=== PATIENT | female | born 1985 | race Caucasian/White ===

== ENCOUNTER 2022-02-27 19:12 | Day surgery (SDC) | payer BC, SELFPAY ==
[2022-02-27] VITALS (9 sets, daily range): BP systolic 97–112; BP diastolic 54–80; PULSE 70–78; RESP 16; TEMP 36.1–36.6; O2SAT 99; BMI 22.1
--- NOTE | 2022-02-27 19:58 | CRLHL7_ITS ---
For Patients: As a result of the Century Cures Act, medical imaging exams and procedure reports are released immediately into your electronic medical record. You may view this report before your referring provider. If you have questions, please contact your health care provider. INDICATION: Abdominal pain. COMPARISON: 24 April 2021. TECHNIQUE: 62 mL Isovue-370 IV contrast. FINDINGS: Breast implants. Very small amount of ascites around the spleen greater than liver. Complex fluid and hemorrhage in the dependent retrouterine pelvis. Hemorrhage surrounds a presumed right ovarian follicle. Small left ovarian follicle without adjacent hemorrhage. Appendectomy clips above the right adnexum. Nonobstructing calculi in the right kidney. There is slightly delayed left nephrogram compared to the right although no hydronephrosis. IMPRESSION: Abnormal pelvis with appearance of hemorrhage in the retrouterine space and right adnexum. Query hemorrhagic rupture of a cyst or rupture of a torsed ovary. Query pyosalpinx. Ectopic is a possibility if there is positive test. Correlate with clinical and laboratory findings. Ultrasound should be considered for better characterize. Surgical gynecology referral recommended. Results discussed with Dr. Anderson at 2200 02/27/2022. Please note that all CT scans at this facility use dose modulation, iterative reconstruction, and/or weight-based dosing when appropriate to reduce radiation dose to as low as reasonably achievable. Dictated by Hector Nolan MD @ 02/27/2022 9:59:24 PM (Electronically Signed)
[2022-02-27 20:12] LABS: Lactate* 1.4 mmol/L (0.5-1.9)
[2022-02-27 20:14] LABS: Basophils Absolute Auto 0.02 K/uL (0.00-0.30); Basophils Percent Auto 0.2 % (0.0-3.0); Eosinophils Absolute Auto 0.42 K/uL (0.00-0.50); Eosinophils Percent Auto 4.5 % (0.0-7.0); Hematocrit 32.7 % (33.0-51.0); Hemoglobin* 10.9 gm/dL (12.0-16.0); Immature Granulocytes Abs Auto 0.02 K/uL (0.00-0.30); Lymphocytes Absolute Auto 2.76 K/uL (0.90-2.90); Lymphocytes Percent Auto 29.6 % (20-44); Mean Corpuscular HGB Conc 33 gm/dL (32-36); Mean Corpuscular Hemoglobin 30 pg (26-34); Mean Corpuscular Volume 89 fL (80-100); Monocytes Percent Auto 7.6 % (0.0-11.0); Neutrophils Absolute Auto 5.39 K/uL (1.7-7.0); Neutrophils Percent Auto 57.9 % (42.0-72.0); Platelet Count* 243 K/uL (140-440); RDW Coefficient of Variation % 12.7 % (11.5-15.5); Red Blood Count 3.69 m/uL (4.00-5.20); White Blood Count* 9.32 K/uL (4.50-11.00)
--- NOTE | 2022-02-27 20:14 | ED_ITS ---
HPI - Abdominal Pain General Chief Complaint: Abdominal Pain Stated Complaint: abdominal pain,dizzy Time Seen by Provider: 02/27/22 19:55 History of Present Illness HPI narrative: Pt is a 36 year old woman who began having abd pain this morning. She states the pain is severe and radiates through to her back. No nausea or vomiting. No fever or chills. No dysuria. She states that she had a normal mensus approximately 1 week ago. She states that she has not been taking any medications but did drink a beer tonight to try to help with the pain. She is unable to identify any worsening factors but has not been able to eat much today. She has had no similar symptoms previously. Related Data Home Medications Medication Instructions Recorded Confirmed No Known Home Medications 02/27/22 02/27/22 Allergies Allergy/AdvReac Type Severity Reaction Status Date / Time No Known Drug Allergies Allergy Verified 02/27/22 19:25 Review of Systems Status of ROS Reports: 10 or more systems reviewed and unremarkable except as noted in History and below [facility] Medical History (Updated 02/27/22 @ 22:46 by Remberto Anderson MD) ADD (attention deficit disorder) Depression ALANNA (generalized anxiety disorder) GERD (gastroesophageal reflux disease) Migraine Panic disorder with agoraphobia Primary insomnia PTSD (post-traumatic stress disorder) Surgical History H/O bilateral breast implants H/O wisdom tooth extraction History of appendectomy Social History Smoking Status: Current every day smoker What tobacco products do you use: cigarettes Do you use any of these nicotine containing products: E-Cigarettes Second hand tobacco smoke exposure: Yes How often do you have a drink containing alcohol: never How often do you have six or more drinks on one occasion: Never AUDIT-C Alcohol total score: 0 Non-prescribed substance use: denies use Exam Narrative: Exam Narrative: EXAM GENERAL: Patient appears uncomfortable EYES: No scleral icterus. THYROID: no thyroid nodules or thyromegaly. LYMPH: No supraclavicular or cervical lymphadenopathy. SKIN: Visible skin seen during exam normal or with benign process only. EXT: No dependent lower extremity pedal edema. HEART: Regular rate and rhythm with no murmurs, rubs, or gallops. LUNGS: Clear to auscultation bilaterally with no crackles or wheezes. ABD: Hypoactive but present bowel sounds. Abd slightly distended PSYCH: Good eye contact, speech is not pressured. Const: Vital Signs, click to edit/add: Vital Signs - 24 hr 02/27/22 19:21 02/27/22 20:22 02/27/22 20:20 Temperature 97.8 F 97.8 F Pulse Rate [Right Pulse Oximeter] 76 Respiratory Rate 16 Blood Pressure [Ri ght Upper Arm] 108/76 Pulse Oximetry 99 99 Oxygen Delivery Me thod Room Air 02/27/22 20:50 02/27/22 21:39 Temperature 97.8 F 97.0 F L Pulse Rate [Right Pulse Oximeter] 78 Respiratory Rate 16 Blood Pressure [Ri ght Upper Arm] 112/78 Pulse Oximetry 99 Oxygen Delivery Me thod Room Air Course Course Hospital Course: IV placed. CT of abd and pelvis ordered. CBC, CMP, Amylase, Lipase, UA, Urine , ETOH, D dimer collected Previous records reviewed. 1 Liter NS 30 mg Toradol given Reevaluation(s) Reevaluation #1: Feeling better after 1 liter NS, 30 of Toradol and 0.5 of Dilaudid. Labs reviewed normal except Calcium of 8.1, D dimer of 0.61 and Hgb of 10. UA shows c ontamination. CT of Abd and pelvis shows hemoperitoneum retrouterine query pyosalpinx. Consult with [employer] recommended Time: 22:41 Consultations Consultation #1: Case reviewed with pediatric surgeon [employer]. Who shares my concern. Coming in to see pt. Time: 22:43 Vital Signs Vital signs: Initial Vital Signs Temperature 97.8 F 02/27/22 19:21 Temperature Source Temporal Artery Scan 02/27/22 19:21 Pulse Rate 76 02/27/22 19:21 Respiratory Rate 16 02/27/22 19:21 Blood Pressure 108/76 02/27/22 19:21 Blood Pressure Mean 86 02/27/22 19:21 Blood Pressure Position Sitting 02/27/22 19:21 Pulse Oximetry 99 02/27/22 19:21 Oxygen Delivery Method 02/27/22 19:21 Vital Signs Temperature 97.8 F 02/27/22 19:21 Pulse Rate 76 02/27/22 19:21 Respiratory Rate 16 02/27/22 19:21 Blood Pressure 108/76 02/27/22 19:21 Pulse Oximetry 99 02/27/22 19:21 Oxygen Delivery Method 02/27/22 19:21 Temperature 97.0 F L 02/27/22 21:39 Pulse Rate 78 02/27/22 21:39 Respiratory Rate 16 02/27/22 21:39 Blood Pressure 112/78 02/27/22 21:39 Pulse Oximetry 99 02/27/22 21:39 Oxygen Delivery Method 02/27/22 21:39 MDM - Abdominal Pain MDM Narrative Medical decision making narrative: Pt is a 36 year old who presents with abd pain of 12 hours duration. Workup shows anemia and hemoperitoneum. [employer] called and will come in to admit pt vs taking to the OR. Medical Records Medical records narrative: Previous records reviewed. Differential includes. Ovarian cyst rupture. Torsed ovary, Acute blood loss anemia, other bleeding from viscera, Lab Data Labs: Lab Results 02/27/22 02/27/22 02/27/22 Range/Units 19:58 20:05 20:05 WBC 9.32 (4.50-11.00) K/uL RBC 3.69 L (4.00-5.20) m/uL Hgb 10.9 L (12.0-16.0) gm/dL Hct 32.7 L (33.0-51.0) % MCV 89 (80-100) fL MCH 30 (26-34) pg MCHC 33 (32-36) gm/dL RDW Coeff of [place] 12.7 (11.5-15.5) % Plt Count 243 (140-440) K/uL Neut % (Auto) 57.9 (42.0-72.0) % Lymph % (Auto) 29.6 (20-44) % [place] % (Auto) 7.6 (0.0-11.0) % Eos % (Auto) 4.5 (0.0-7.0) % Baso % (Auto) 0.2 (0.0-3.0) % Neut # (Auto) 5.39 (1.7-7.0) K/uL Lymph # (Auto) 2.76 (0.90-2.90) K/uL [place] # (Auto) 0.70 (0.00-0.90) K/UL Eos # (Auto) 0.42 (0.00-0.50) K/uL Baso # (Auto) 0.02 (0.00-0.30) K/uL Abs Immat Gran (auto) 0.02 (0.00-0.30) K/uL D-Dimer Quant (PE/DVT) (0.00-0.50) ug/ml Sodium 135 (135-149) mmol/L Potassium 4.0 (3.6-5.1) mmol/L Chloride 105 (96-114) mmol/L Carbon Dioxide 24 (20-32) mmol/L BUN 14 (5-24) mg/dL Creatinine 0.6 (0.5-1.5) mg/dL Estimated Creat Clear 109.29 Estimated GFR 121 ml/min Glucose 91 (60-115) mg/dL Lactate (0.5-1.9) mmol/L Calcium 8.1 L (8.4-10.6) mg/dL Total Bilirubin 0.3 (0.1-1.5) mg/dL AST 24 (12-35) U/L ALT 17 (4-35) U/L Alkaline Phosphatase 42 (40-150) U/L Total Protein 6.7 (6.0-8.3) g/dL Albumin 4.0 (3.3-5.0) g/dL Amylase 94 H (18-89) U/L Lipase 144 (23-300) U/L HCG, Qual Negative (Negative) Urine Color Yellow (Yellow) Urine Appearance Slightly Cloudy A (Clear) Urine pH 5.5 (5.0-8.5) Ur Specific [place] 1.020 (1.000-1.030) Urine Protein Negative (Negative) Urine Glucose (UA) Negative (Negative) Urine Ketones Trace A (Negative) Urine Blood Negative (Negative) Urine Nitrite Negative (Negative) Urine Bilirubin Negative (Negative) Urine Urobilinogen 0.2 (0.2-1.0) Ur Leukocyte Esterase Trace A (Negative) Urine RBC 2-5 A (0-2) Urine WBC 0-2 (0-5) Ur Squamous Epith Cells None (None-Few) Urine Bacteria Few A (None) Urine Mucus Few A (None) Ethyl Alcohol (0.01-0.03) % 02/27/22 02/27/22 02/27/22 Range/Units 20:05 20:05 20:33 WBC (4.50-11.00) K/uL RBC (4.00-5.20) m/uL Hgb (12.0-16.0) gm/dL Hct (33.0-51.0) % MCV (80-100) fL MCH (26-34) pg MCHC (32-36) gm/dL RDW Coeff of [place] (11.5-15.5) % Plt Count (140-440) K/uL Neut % (Auto) (42.0-72.0) % Lymph % (Auto) (20-44) % [place] % (Auto) (0.0-11.0) % Eos % (Auto) (0.0-7.0) % Baso % (Auto) (0.0-3.0) % Neut # (Auto) (1.7-7.0) K/uL Lymph # (Auto) (0.90-2.90) K/uL [place] # (Auto) (0.00-0.90) K/UL Eos # (Auto) (0.00-0.50) K/uL Baso # (Auto) (0.00-0.30) K/uL Abs Immat Gran (auto) (0.00-0.30) K/uL D-Dimer Quant (PE/DVT) 0.61 H (0.00-0.50) ug/ml Sodium (135-149) mmol/L Potassium (3.6-5.1) mmol/L Chloride (96-114) mmol/L Carbon Dioxide (20-32) mmol/L BUN (5-24) mg/dL Creatinine (0.5-1.5) mg/dL Estimated Creat Clear Estimated GFR ml/min Glucose (60-115) mg/dL Lactate 1.4 (0.5-1.9) mmol/L Calcium (8.4-10.6) mg/dL Total Bilirubin (0.1-1.5) mg/dL AST (12-35) U/L ALT (4-35) U/L Alkaline Phosphatase (40-150) U/L Total Protein (6.0-8.3) g/dL Albumin (3.3-5.0) g/dL Amylase (18-89) U/L Lipase (23-300) U/L HCG, Qual (Negative) Urine Color (Yellow) Urine Appearance (Clear) Urine pH (5.0-8.5) Ur Specific [place] (1.000-1.030) Urine Protein (Negative) Urine Glucose (UA) (Negative) Urine Ketones (Negative) Urine Blood (Negative) Urine Nitrite (Negative) Urine Bilirubin (Negative) Urine Urobilinogen (0.2-1.0) Ur Leukocyte Esterase (Negative) Urine RBC (0-2) Urine WBC (0-5) Ur Squamous Epith Cells (None-Few) Urine Bacteria (None) Urine Mucus (None) Ethyl Alcohol < 0.01 L (0.01-0.03) % Discharge Plan Discharge Clinical Impression: Hemoperitoneum Patient Disposition: Admitted As Inpatient Condition: Stable Activity Level: Up with assist Discharge Diet: Other Prescriptions: No Action No Known Home Medications Follow Up/Referrals: Remberto Anderson MD [Primary Care Provider] -
[2022-02-27 20:15] LABS: Appearance Urine Slightly Cloudy (Clear); Bilirubin Urine Negative (Negative); Blood Urine Negative (Negative); Color Urine Yellow (Yellow); Glucose Urine Negative (Negative); Ketones Urine Trace (Negative); Leukocyte Esterase Urine Trace (Negative); Nitrite Urine Negative (Negative); Protein Urine Negative (Negative); Urobilinogen Urine 0.2 (0.2-1.0); pH Urine 5.5 (5.0-8.5)
[2022-02-27 20:16] LABS: Slide Review Reflex No
[2022-02-27] MEDS: KETOROLAC 30 MG/ML inj IVP (20:20)
[2022-02-27] MEDS: 0.9 % SODIUM CHLORIDE 1000 ml 1,000 ML IV (20:20)
[2022-02-27 20:33] LABS: Chloride* 105 mmol/L (96-114); Sodium* 135 mmol/L (135-149)
[2022-02-27 20:35] LABS: Amylase* 94 U/L (18-89); Aspartate Amino Transferase* 24 U/L (12-35); Bilirubin Total* 0.3 mg/dL (0.1-1.5); Blood Urea Nitrogen* 14 mg/dL (5-24); Carbon Dioxide* 24 mmol/L (20-32); Creatinine* 0.6 mg/dL (0.5-1.5); Est. Creatinine Clearance* 109.29; Estimated Glomerular Filt Rate 121 ml/min; Total Protein* 6.7 g/dL (6.0-8.3)
[2022-02-27 20:36] LABS: Alanine Aminotransferase* 17 U/L (4-35); Alkaline Phosphatase* 42 U/L (40-150); Calcium* 8.1 mg/dL (8.4-10.6); Glucose* 91 mg/dL (60-115); Lipase* 144 U/L (23-300)
[2022-02-27 20:42] LABS: Ethanol* < 0.01 % (0.01-0.03)
[2022-02-27 20:47] LABS: Bacteria Urine Few; WBC Urine 0-2 (0-5)
[2022-02-27 20:48] LABS: Mucus Urine Few
[2022-02-27] MEDS: HYDROmorphone 0.5 mg/0.5 ml inj IVP ×2 (20:50→23:12)
[2022-02-27 20:57] LABS: HCG Qualitative* Negative (Negative)
[2022-02-27 21:00] LABS: D Dimer Quantitative* 0.61 ug/ml (0.00-0.50)
[2022-02-27 23:32] LABS: SARS PCR* Negative SARS-CoV-2 (Negative)
--- NOTE | 2022-02-27 23:58 | P.GYNHP_ITS ---
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 This morning, she noted periumbilical 9/10 abdominal/pelvic pain, without radiation. No vaginal bleeding since menses ceased 10d ago; no other abnormal vaginal discharge, irritation, odor, itching. Pain not relieved by bowel movement, which itself was painful; she denies N/V today. She last ate at 1530, last fluids 1630. Voiding completely, but also painful. She experienced no adverse anesthesia reaction after laparoscopic appendectomy 2018; no family history coagulation disorders or malignant hyperthermia. Review of Systems Status of ROS: Reports: 6 or more systems reviewed and unremarkable except as noted in History and below Resp: Reports: pain on inspiration GI: Reports: abdominal pain and change in bowel habits (constipation today) : Reports: painful urination PFSH PFSH Medical History ADD (attention deficit disorder) Depression ALANNA (generalized anxiety disorder) GERD (gastroesophageal reflux disease) Migraine Panic disorder with agoraphobia Primary insomnia PTSD (post-traumatic stress disorder) Surgical History H/O bilateral breast implants H/O wisdom tooth extraction History of appendectomy Social History Smoking Status: Current every day smoker What tobacco products do you use: cigarettes Do you use any of these nicotine containing products: E-Cigarettes Second hand tobacco smoke exposure: Yes How often do you have a drink containing alcohol: never How often do you have six or more drinks on one occasion: Never AUDIT-C Alcohol total score: 0 Non-prescribed substance use: denies use Meds Home Medications and Allergies Home Medications Medication Instructions Recorded Confirmed Type No Known Home Medications 02/27/22 02/27/22 History Allergies Allergy/AdvReac Type Severity Reaction Status Date / Time No Known Drug Allergies Allergy Verified 02/27/22 19:25 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 Physical Exam: Vital signs: Temp Pulse Resp BP Pulse Ox O2 Del Method 97.0 F L 78 16 112/78 99 02/27/22 21:39 02/27/22 21:39 02/27/22 21:39 02/27/22 21:39 02/27/22 21:39 02/27/22 21:39 Constitutional: Constitutional: mild distress and cooperative Routine HEENT Exam: Head: Present normal inspection Routine Neck Exam: NECK: Present full ROM Routine Cardiovascular Exam: Cardiovascular: Present RRR Routine Abdominal Exam: Abdominal: Present firm, guarding, rebound and te nderness Routine Extremities Exam: Extremities: Present full ROM and normal inspection Routine Neurological Exam: Neurological: Present alert and CN II-XII intact Routine Psychiatric Exam: Psychiatric: Present normal affect, normal thought process and cooperative 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 - Results Labs Labs: Short CBC 02/27/22 Range/Units 20:05 WBC 9.32 (4.50-11.00) K/uL Hgb 10.9 L (12.0-16.0) gm/dL Hct 32.7 L (33.0-51.0) % Plt Count 243 (140-440) K/uL BMP 02/27/22 20:05 Sodium 135 Potassium 4.0 Chloride 105 Carbon Dioxide 24 BUN 14 Creatinine 0.6 Glucose 91 Calcium 8.1 L Liver Function 02/27/22 Range/Units 20:05 Total Bilirubin 0.3 (0.1-1.5) mg/dL AST 24 (12-35) U/L ALT 17 (4-35) U/L Alkaline Phosphatase 42 (40-150) U/L Albumin 4.0 (3.3-5.0) g/dL Urine 02/27/22 Range/Units 19:58 Urine Color Yellow (Yellow) Urine Appearance Slightly Cloudy A (Clear) Urine pH 5.5 (5.0-8.5) Ur Specific [place] 1.020 (1.000-1.030) Urine Protein Negative (Negative) Urine Glucose (UA) Negative (Negative) Imaging CT scan - pelvis: Attestation: I have reviewed the pertinent imaging results. Radiologist's impression: hemoperitoneum, more likely from right adnexal source. possible ovarian torsion. Assessment and Plan Assessment and plan (1) Hemoperitoneum: Status: Acute (2) Pelvic pain with negative beta-human chorionic gonadotropin (BhCG) in female: Status: Acute Plan Regular menses, last 2w ago; ovulation likely occurred past day, with hemorrhage at cyst site. Pain likely result of hemoperitoneum. Negative hcg, so ectopic not present. Normal LFT, amylase, lipase rule out hepatic or pancreatic source. Appendix surgically absent. Discussed risks and benefits of alternatives for managing this pelvic blood and subsequent pain. These include watchful waiting, medical control of pain, serial labs, further imaging with ultrasound, as well as definitive treatment with diagnostic laparoscopy, evacuation of hemoperitoneum, establishment of hemostasis, and possible unilateral oophorectomy. All her questions answered to her satisfaction; she gave signed informed consent to proceed to the OR for outpatient procedure now. OR team called.
[2022-02-28] VITALS (20 sets, daily range): BP systolic 92–108; BP diastolic 51–74; PULSE 76–88; RESP 12–18; TEMP 36.2–37.3; O2SAT 81–100
--- NOTE | 2022-02-28 00:25 | P.PCN_ITS ---
Procedure Note Date Seen: 02/28/22 Will [facility] bill your pro fee for this procedure?: Yes Pre-op diagnosis: pelvic pain with negative test, hemoperitoneum Procedure: Diagnostic laparoscopy. Evacuation of hemoperitoneum. Right salpingo- oophorectomy. Procedure Description: Discussion of risks and benefits of diagnostic laparoscopy and evacuation of hemoperitoneum, with possible unilateral oophorectomy if hemorrhage or torsion found. All patient questions answered to her satisfaction; she gave signed informed consent to proceed to OR for outpatient laparoscopy. She moved to supine position on OR table, and GETA placed. She was prepped and draped in usual fashion. A [employer] uterine manipulator was placed after visualization of cervix with bivalve speculum. Gloves changed. Bupivicaine 0.5% infiltrated in anticipated infraumbilical port site, as well as adjacent sites for towel clips used to elevate abdominal wall. 5mm incision made, and trocar placed into peritoneal cavity; correct placement confirmed with laparoscope. CO2 used for pneumoperitoneum. Bilateral lower quadrant 5mm ports placed in usual fashion under direct visualization. Normal appearing uterus, left ovary, bilateral uterine tubes, gall bladder, inferior liver edge, omentum, and bowel seen. Liquid--and some clotted--hemoperitoneum evacuated with suction global compensation manager. Right ovarian rupture confirmed. Ligasure device used to seal and divide right tube and ovary from attachments. LLQ port removed; site enlarged with scalpel to 11mm, and larger port placed under direct visualization. Laparoscopic specimen bag placed into pelvis. Right adnexa and remaining clot placed in bag, which was then broght partially through LLQ incision. Pelvis reinspected with laparoscope, irriagated and suctioned. Pictures taken. Pneum operitoneum released after RLQ port removed under direct vision. Clamp, ring forceps, and suction used to extract enough specimen from bag until it could be fully removed from peritoneal cavity. All tissue sent for routine Pathology evaluation. LLQ incision fascia closed with 0 Vicryl. Skin of all three incisons closed with running subcuticular 4-0 Monocryl and covered with skin glue. All instrument, sharp, and sponge counts correct at conclusion of case. Patient tolerated procedure very well, and went to PACU in stable condition. Anesthesia: GETA Surgeon: Freedom Anaya MD Estimated blood loss (mL): 7 IV fluids (mL): 800 Pathology: specimen obtained, sent to pathology Condition: stable Disposition: PACU
[2022-02-28] MEDS: BUPIVACAINE 0.5 %/EPI 1:200K 30 ML INJECTION (02:25)
--- NOTE | 2022-02-28 05:47 | PC.NURSE ---
patient tolerating diet, pain controlled, ice to abd. 3 glued lap sites c/d/i. patient has been up to BR to void, no c/o nausea. see VS charting; BPs 90s/60s patient has no symptoms of hypotension. patient expresses desire to go home.
--- NOTE | 2022-02-28 07:34 | W.ANESCHARGE ---
Anesthesia Charges Start Date/Time Anesthesia Start Date: 02/28/22 Anesthesia Start Time: 00:38 Stop Date/Time Anesthesia Stop Date: 02/28/22 Anesthesia Stop Time: 02:53 Summary Emergency: Yes
[2022-02-28] MEDS: KETOROLAC 10 MG TABLET PO (08:18)
[2022-02-28] MEDS: ACETAMINOPHEN 500 MG TABLET 1000 MG PO (08:18)
--- NOTE | 2022-02-28 09:01 | P.DS_ITS ---
DS: Providers Provider Date Seen: 02/28/22 Primary care physician: Remberto Anderson MD Attending Physician on discharge: Freedom Anaya MD Date of Discharge: 02/28/22 DS: Diagnosis Discharge Diagnosis (1) Hemoperitoneum: Status: Acute Problem details: source was right ovarian hemorrhage, likely from ovulation cyst. Right salpingo-oophorectomy completed. (2) Pelvic pain with negative beta-human chorionic gonadotropin (BhCG) in female: Status: Acute Problem details: Pain resolved with evacuation of hemoperitoneum. DS: Medications Discharge Medications Other Medication Instructions: Because of downtime, paper scripts given for ketorolac 10mg PO Q6H; for gretchen taminophen 500mg tabs, 2 tabs PO QID PRN refractory pain >1H after taking NSAID. 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 Indication for surgery: Pelvic pain with negative hCG. Intraoperative findings were notable for approximately 300mL clotted pelvic blood, and rupture right ovary. She had an uncomplicated surgery. Postoperative course has been uneventful. Vitals have been stable. She has remained afebrile. Today, on postoperative day 0, she reports the pain is well controlled. She has been able to ambulate Without difficulty. She is tolerating regular diet. She is passing flatus. She is voiding without difficulty. Hospital Course: IV placed. CT of abd and pelvis ordered. CBC, CMP, Amylase, Lipase, UA, Urine , ETOH, D dimer collected Previous records reviewed. 1 Liter NS 30 mg Toradol given Time Spent with Patient Time attestation: Total time spent providing and/or coordinating discharge services: CERTIFIED PHYSICAL THERAPIST ASSISTANT - Exam Physical Exam: Vital signs: Temp Pulse Resp BP Pulse Ox O2 Del Method 99.2 F 82 18 96/51 L 99 02/28/22 07:30 02/28/22 07:30 02/28/22 07:30 02/28/22 07:30 02/28/22 07:30 02/28/22 07:30 CERTIFIED PHYSICAL THERAPIST ASSISTANT - DS: Data Data Completed and Pending Labs on day of discharge: Labs from last 24 hours 02/27/22 02/27/22 02/27/22 22:15 20:33 20:05 WBC RBC Hgb Hct MCV MCH MCHC RDW Coeff of [place] Plt Count Neut % (Auto) Lymph % (Auto) [place] % (Auto) Eos % (Auto) Baso % (Auto) Neut # (Auto) Lymph # (Auto) [place] # (Auto) Eos # (Auto) Baso # (Auto) Abs Immat Gran (auto) D-Dimer Quant (PE/DVT) 0.61 H Sodium Potassium Chloride Carbon Dioxide BUN Creatinine Estimated Creat Clear Estimated GFR Glucose Lactate Calcium Total Bilirubin AST ALT Alkaline Phosphatase Total Protein Albumin Amylase Lipase HCG, Qual Urine Color Urine Appearance Urine pH Ur Specific [place] Urine Protein Urine Glucose (UA) Urine Ketones Urine Blood Urine Nitrite Urine Bilirubin Urine Urobilinogen Ur Leukocyte Esterase Urine RBC Urine WBC Ur Squamous Epith Cells Urine Bacteria Urine Mucus Ethyl Alcohol < 0.01 L SARS-CoV-2 (PCR) Negative SARS-CoV-2 02/27/22 02/27/22 02/27/22 20:05 20:05 20:05 WBC 9.32 RBC 3.69 L Hgb 10.9 L Hct 32.7 L MCV 89 MCH 30 MCHC 33 RDW Coeff of [place] 12.7 Plt Count 243 Neut % (Auto) 57.9 Lymph % (Auto) 29.6 [place] % (Auto) 7.6 Eos % (Auto) 4.5 Baso % (Auto) 0.2 Neut # (Auto) 5.39 Lymph # (Auto) 2.76 [place] # (Auto) 0.70 Eos # (Auto) 0.42 Baso # (Auto) 0.02 Abs Immat Gran (auto) 0.02 D-Dimer Quant (PE/DVT) Sodium 135 Potassium 4.0 Chloride 105 Carbon Dioxide 24 BUN 14 Creatinine 0.6 Estimated Creat Clear 109.29 Estimated GFR 121 Glucose 91 Lactate 1.4 Calcium 8.1 L Total Bilirubin 0.3 AST 24 ALT 17 Alkaline Phosphatase 42 Total Protein 6.7 Albumin 4.0 Amylase 94 H Lipase 144 HCG, Qual Urine Color Urine Appearance Urine pH Ur Specific [place] Urine Protein Urine Glucose (UA) Urine Ketones Urine Blood Urine Nitrite Urine Bilirubin Urine Urobilinogen Ur Leukocyte Esterase Urine RBC Urine WBC Ur Squamous Epith Cells Urine Bacteria Urine Mucus Ethyl Alcohol SARS-CoV-2 (PCR) 02/27/22 19:58 WBC RBC Hgb Hct MCV MCH MCHC RDW Coeff of [place] Plt Count Neut % (Auto) Lymph % (Auto) [place] % (Auto) Eos % (Auto) Baso % (Auto) Neut # (Auto) Lymph # (Auto) [place] # (Auto) Eos # (Auto) Baso # (Auto) Abs Immat Gran (auto) D-Dimer Quant (PE/DVT) Sodium Potassium Chloride Carbon Dioxide BUN Creatinine Estimated Creat Clear Estimated GFR Glucose Lactate Calcium Total Bilirubin AST ALT Alkaline Phosphatase Total Protein Albumin Amylase Lipase HCG, Qual Negative Urine Color Yellow Urine Appearance Slightly Cloudy A Urine pH 5.5 Ur Specific [place] 1.020 Urine Protein Negative Urine Glucose (UA) Negative Urine Ketones Trace A Urine Blood Negative Urine Nitrite Negative Urine Bilirubin Negative Urine Urobilinogen 0.2 Ur Leukocyte Esterase Trace A Urine RBC 2-5 A Urine WBC 0-2 Ur Squamous Epith Cells None Urine Bacteria Few A Urine Mucus Few A Ethyl Alcohol SARS-CoV-2 (PCR) Procedures Procedures: Procedures Operation Date: 02/28/22 00:45 Procedure: diagnostic laparoscopy, evacuation of hemoperitoneum, right salpingo-oophorectomy. Complications: none Discharge Plan Discharge Disposition: Home, Self-Care Discharging Surgeon: Freedom Anaya Follow-Up Appointment: prn, and [facility]w [facility] Prescriptions: New acetaminophen 500 mg Tablet 1,000 mg PO Q6H Qty: 100 0RF ketorolac 10 mg Tablet 10 mg PO Q6H Qty: 14 0RF Activity Level: Activity as Tolerated Discharge Diet: Regular and Other Patient Instructions: Surgical Site Infections (DC) Forms: Work/Release Restrictions Follow-up: Remberto Anderson MD [Primary Care Provider] - Discharge Orders: Discharge Order (Routine); Ordered 02/28/22 Ordered By: Freedom Anaya
--- NOTE | 2022-02-28 10:00 | PC.NURSE ---
End of Shift: Patient pleasant and cooperative. Patient vitally stable, lungs clear, BS WNL, IV removed, catheter intact. Patient rated pain 8/10, tylenol and toradol given once, pain decreased to 4/10. Patient independent in room. Patient tolerating regular diet and urinating. Lap sites x3 C/D/I. Patient signed belongings sheet and discharge form. Patient had no further questions regarding discharge education. Patient left the floor by foot at 0952.
--- NOTE | 2022-02-28 11:57 | PC.NURSE ---
GUZMAN CATH USED TO EMPTY BLADDER AT END OF CASE. NOT INDWELLING. APX 30CC URINE RETURN
--- NOTE | 2022-02-28 11:59 | SUR.OPER ---
GUZMAN USED FOR EMPTYING BLADDER AT END OF CASE. NOT INDWELLING. 30CC URINE RETURN
--- NOTE | 2022-03-02 13:41 | SUR.PHASEI ---
FENTANYL 50MCG IVP GIVEN AT 0309 PER ALISHA LAFLEUR RN FOR PAIN RATING 12/27
--- NOTE | 2022-03-12 09:06 | SUR.PHASEI ---
Fentanyl 50mcg IV given by Maureen DICKENS on 02/28/22 @ 0309. Charge entered per Marlene in pharmacy.
== END 2022-02-28 09:52 | disposition home or self-care (01) ==
LOC: ED 22:46 → MEDSURG 23:47 → ED 02-28 → MEDSURG 02-28 00:09 → ED 02-28 04:42 → SS 02-28 04:42
PROVIDERS: Emergency Provider Internal Medicine; PCP Internal Medicine; Visit Provider Obstetrics & Gynecology
PROC: (CPT 49320; principal; 2022-02-28 00:30)
DX: K66.1 Hemoperitoneum (principal); R10.2 Pelvic and perineal pain; R42 Dizziness and giddiness
CPT/HCPCS: 58661; 49320; 00840; 36415; 74177; 80053; 81003; 81015; 82077; 82150; 83605; 83690; 84703; 85025; 85379; 87086; 87635; 88305; 94761; 99140; 99284; 99285; A9270; J0330; J1100; J1170; J1200; J1885; J2405; J3010; J3490; J7030; Q9967

== ENCOUNTER 2023-04-08 17:34 | Emergency (ER) | payer SELFPAY ==
[2023-04-08 17:37] VITALS: BP 109/73; PULSE 108; RESP 18; TEMP 37; O2SAT 100; BMI 20.4
[2023-04-08] MEDS: KETOROLAC 30 MG/ML inj IM (18:15)
[2023-04-08 18:26] LABS: Appearance Urine Clear (Clear); Bilirubin Urine Negative (Negative); Blood Urine 1+ (Negative); Color Urine Yellow (Yellow); Glucose Urine Negative (Negative); Ketones Urine Negative (Negative); Leukocyte Esterase Urine Trace (Negative); Nitrite Urine Negative (Negative); Protein Urine 2+ (Negative); Specific Gravity Urine >= 1.030 (1.000-1.030); Urobilinogen Urine 0.2 (0.2-1.0)
--- NOTE | 2023-04-08 18:32 | ED_ITS ---
HPI - Fever General Date Seen: 04/08/23 <Phil Arzola MD - Last Filed: 04/08/23 18:34> Chief Complaint: Fever <Phil Arzola MD - Last Filed: 04/08/23 18:34> Stated Complaint: Body aches, fever, pain in abdomen and neck <Phil Arzola MD - Last Filed: 04/08/23 18:34> Time Seen by Provider: 04/08/23 17:43 <Phil Arzola MD - Last Filed: 04/08/23 18:34> Source: patient <Phil Arzola MD - Last Filed: 04/08/23 18:34> Mode of arrival: ambulatory <Phil Arzola MD - Last Filed: 04/08/23 18:34> Limitations: no limitations <Phil Arzola MD - Last Filed: 04/08/23 18:34> History of Present Illness HPI Narrative: Patient is a very nice 37-year-old female presents here with pain all over her body, this is been for the last 3 days, associated with a fever up to 102 at home. She is also phone nasal discharge and a slight sore throat with this, she feels like she has the flu. She has not received the flu vaccine this year, and only had 1 of her initial COVID series. She describes some lower back discomfort and some lower abdominal discomfort, she does not really have a history of dysuria frequency of urination, but is somewhat worried about a UTI also. She has been taking Tylenol ibuprofen for the last couple days, this is helping her pain somewhat but not completely taking it away. No nausea no vomiting, she denies no change in her bowel habits. She does have a history of a previous ruptured ovarian cyst, and having have a laparoscopy secondary to this. <Phil Arzola MD - Last Filed: 04/08/23 18:34> Related Data Home Medications: Previous Rx's Medication Instructions Recorded acetaminophen 500 mg tablet 1,000 mg (2 x 500 mg) PO Q6H #100 02/28/22 tabs ketorolac 10 mg tablet 10 mg PO Q6H #14 tabs 02/28/22 oxycodone 5 mg tablet 5 mg PO Q8H PRN pain #21 tabs 03/01/22 cyclobenzaprine 10 mg tablet 10 mg PO TID PRN muscle spasm #30 03/05/22 tabs <Phil Arzola MD - Last Filed: 04/08/23 18:34> Allergies/Adverse Reactions: Allergies Allergy/AdvReac Type Severity Reaction Status Date / Time No Known Drug Allergies Allergy Verified 04/08/23 20:54 <Phil Arzola MD - Last Filed: 04/08/23 18:34> Review of Systems Status of ROS Reports: 10 or more systems reviewed and unremarkable except as noted in History and below <Phil Arzola MD - Last Filed: 04/08/23 18:34> PFSH PFSH Medical History: Medical History Neck muscle spasm ?M62.838 - Other muscle spasm (ICD-10) Ovarian hemorrhage ?N83.8 - Other noninflammatory disorders of ovary, fallopian tube and broad ligament (ICD-10) ALANNA (generalized anxiety disorder) ?F41.1 - Generalized anxiety disorder (ICD-10) PTSD (post-traumatic stress disorder) ?F43.10 - Post-traumatic stress disorder, unspecified (ICD-10) Panic disorder with agoraphobia ?F40.01 - Agoraphobia with panic disorder (ICD-10) Primary insomnia ?F51.01 - Primary insomnia (ICD-10) GERD (gastroesophageal reflux disease) ?K21.9 - Gastro-esophageal reflux disease without esophagitis (ICD-10) Migraine ?G43.909 - Migraine, unspecified, not intractable, without status migrainosus (ICD-10) ADD (attention deficit disorder) ?F98.8 - Other specified behavioral and emotional disorders with onset usually occurring in childhood and adolescence (ICD-10) Depression ?F32.A - Depression, unspecified (ICD-10) <Phil Arzola MD - Last Filed: 04/08/23 18:34> Surgical History: Surgical History H/O bilateral breast implants ?Z98.82 - Breast implant status (ICD-10) History of appendectomy ?Z90.49 - Acquired absence of other specified parts of digestive tract (ICD- 10) H/O wisdom tooth extraction ?K08.409 - Partial loss of teeth, unspecified cause, unspecified class (ICD- 10) <Phil Arzola MD - Last Filed: 04/08/23 18:34> Social History: Social History Smoking Status: Current every day smoker What tobacco products do you use: cigarettes Do you use any of these nicotine containing products: None Second hand tobacco smoke exposure: No How often do you have a drink containing alcohol: never How often do you have six or more drinks on one occasion: Never AUDIT-C Alcohol total score: 0 Non-prescribed substance use: denies use service: No <Phil Arzola MD - Last Filed: 04/08/23 18:34> Exam Narrative Exam Narrative: Patient is seen in room 7, she is in no apparent distress, pupils are equal round reactive to light there is TMs are normal oropharynx normal no meningismus she moves her neck through full range of motion is no lymphadenopathy anterior posterior chains, her chest is good air entry bilaterally with no wheezing crackles noted heart sounds are normal. Her abdomen is overall soft, there is no tenderness to palpation bowel sounds are normal, no organomegaly no CVA tenderness. She moves all extremities independen tly and well. <Phil Arzola MD - Last Filed: 04/08/23 18:34> Const Vital Signs, click to edit/add: Vital Signs - 24 hr 04/08/23 17:37 Temperature 98.6 F Pulse Rate [Right Pulse Oximeter] 108 H Respiratory Rate 18 Blood Pressure [Right Upper Arm] 109/73 Pulse Oximetry 100 Oxygen Delivery Method Room Air <Phil Arzola MD - Last Filed: 04/08/23 18:34> Vital Signs - 24 hr 04/08/23 17:37 Temperature 98.6 F Pulse Rate [Right Pulse Oximeter] 108 H Respiratory Rate 18 Blood Pressure [Right Upper Arm] 109/73 Pulse Oximetry 100 Oxygen Delivery Method Room Air <Remberto Anderson MD - Last Filed: 04/08/23 22:09> Documenting provider has reviewed patient's vital signs: yes <Phil Arzola MD - Last Filed: 04/08/23 18:34> Course Vital Signs Vital signs: Initial Vital Signs Temperature 98.6 F 04/08/23 17:37 Temperature Source Temporal Artery Scan 04/08/23 17:37 Pulse Rate 108 H 04/08/23 17:37 Respiratory Rate 18 04/08/23 17:37 Blood Pressure 109/73 04/08/23 17:37 Blood Pressure Mean 85 04/08/23 17:37 Blood Pressure Position Sitting 04/08/23 17:37 Pulse Oximetry 100 04/08/23 17:37 Oxygen Delivery Method Room Air 04/08/23 17:37 Vital Signs Temperature 98.6 F 04/08/23 17:37 Pulse Rate 108 H 04/08/23 17:37 Respiratory Rate 18 04/08/23 17:37 Blood Pressure 109/73 04/08/23 17:37 Pulse Oximetry 100 04/08/23 17:37 Oxygen Delivery Method Room Air 04/08/23 17:37 Temperature 98.6 F 04/08/23 17:37 Pulse Rate 108 H 04/08/23 17:37 Respiratory Rate 18 04/08/23 17:37 Blood Pressure 109/73 04/08/23 17:37 Pulse Oximetry 100 04/08/23 17:37 Oxygen Delivery Method Room Air 04/08/23 17:37 <Phil Arzola MD - Last Filed: 04/08/23 18:34> Initial Vital Signs Temperature 98.6 F 04/08/23 17:37 Temperature Source Temporal Artery Scan 04/08/23 17:37 Pulse Rate 108 H 04/08/23 17:37 Respiratory Rate 18 04/08/23 17:37 Blood Pressure 109/73 04/08/23 17:37 Blood Pressure Mean 85 04/08/23 17:37 Blood Pressure Position Sitting 04/08/23 17:37 Pulse Oximetry 100 04/08/23 17:37 Oxygen Delivery Method Room Air 04/08/23 17:37 Vital Signs Temperature 98.6 F 04/08/23 17:37 Pulse Rate 108 H 04/08/23 17:37 Respiratory Rate 18 04/08/23 17:37 Blood Pressure 109/73 04/08/23 17:37 Pulse Oximetry 100 04/08/23 17:37 Oxygen Delivery Method Room Air 04/08/23 17:37 Temperature 98.6 F 04/08/23 17:37 Pulse Rate 108 H 04/08/23 17:37 Respiratory Rate 18 04/08/23 17:37 Blood Pressure 109/73 04/08/23 17:37 Pulse Oximetry 100 04/08/23 17:37 Oxygen Delivery Method Room Air 04/08/23 17:37 <Remberto Anderson MD - Last Filed: 04/08/23 22:09> MDM - Fever MDM Narrative Medical decision making narrative: Life-threatening differential diagnosis is include meningitis, encephalitis, pneumonia, intra-abdominal infection, bacteremia, other differential diagnosis include but are not limited to viral upper respiratory tract infection, strep, urinary tract infection, skin infection, osteomyelitis, influenza, fungal infections, diskitis, epidural abscess, or fever of unknown origin. <Phil Arzola MD - Last Filed: 04/08/23 18:34> Life-threatening differential diagnosis is include meningitis, encephalitis, pneumonia, intra-abdominal infection, bacteremia, other differential diagnosis include but are not limited to viral upper respiratory tract infection, strep, urinary tract infection, skin infection, osteomyelitis, influenza, fungal infections, diskitis, epidural abscess, or fever of unknown origin. Patient CT scan shows evidence of right-sided pyelonephritis without drainable abscess. This is corroborated by her UA results. Culture of the urine and blood are pending. I did give her 1 g of Rocephin IV and arrange for outpatient ciprofloxacin and Briggs. She will follow up closely and will report any change in her symptoms. Patient not interested in hospitalization at this time. <Remberto Anderson MD - Last Filed: 04/08/23 22:09> Differential Diagnosis Differential diagnosis: Likely cellulitis, gastroenteritis, community acquired pneumonia, pyelonephritis, viral infection, sepsis and influenza <Remberto Anderson MD - Last Filed: 04/08/23 22:09> Medical Records Attestation: I reviewed the patient's medical records. <Remberto Anderson MD - Last Filed: 04/08/23 22:09> Lab Data Labs: Lab Results 04/08/23 04/08/23 04/08/23 Range/Units 18:10 19:30 19:50 WBC (4.50-11.00) K/uL RBC (4.00-5.20) m/uL Hgb (12.0-16.0) gm/dL Hct (33.0-51.0) % MCV (80-100) fL MCH (26-34) pg MCHC (32-36) gm/dL RDW Coeff of [place] (11.5-15.5) % Plt Count (140-440) K/uL Neut % (Auto) (42.0-72.0) % Lymph % (Auto) (20-44) % [place] % (Auto) (0.0-11.0) % Eos % (Auto) (0.0-7.0) % Baso % (Auto) (0.0-3.0) % Neut # (Auto) (1.7-7.0) K/uL Lymph # (Auto) (0.90-2.90) K/uL [place] # (Auto) (0.00-0.90) K/UL Eos # (Auto) (0.00-0.50) K/uL Baso # (Auto) (0.00-0.30) K/uL Abs Immat Gran (auto) (0.00-0.30) K/uL Imm/Tot Granulo (auto) % Sodium 135 (135-149) mmol/L Potassium 3.4 L (3.6-5.1) mmol/L Chloride 100 (96-114) mmol/L Carbon Dioxide 25 (20-32) mmol/L Anion Gap 10 (7-15) mEq/L BUN 11 (5-24) mg/dL Creatinine 0.6 (0.5-1.5) mg/dL Estimated Creat Clear 107.77 Estimated GFR 120 ml/min Glucose 96 (60-115) mg/dL Lactate 1.3 (0.5-1.9) mmol/L Calcium 8.2 L (8.4-10.6) mg/dL C-Reactive Protein 19.2 H (0.5-1.0) mg/dL Procalcitonin 0.26 (<0.50) ng/mL HCG, Qual Negative (Negative) Urine Color Yellow (Yellow) Urine Appearance Clear (Clear) Urine pH 6.0 (5.0-8.5) Ur Specific [place] >= 1.030 (1.000-1.030) Urine Protein 2+ A (Negative) Urine Glucose (UA) Negative (Negative) Urine Ketones Negative (Negative) Urine Blood 1+ A (Negative) Urine Nitrite Negative (Negative) Urine Bilirubin Negative (Negative) Urine Urobilinogen 0.2 (0.2-1.0) Ur Leukocyte Esterase Trace A (Negative) Urine RBC 0-2 (0-2) Urine WBC 5-10 A (0-5) Ur Squamous Epith Cells None (None-Few) Urine Bacteria Few A (None) SARS-CoV-2 (PCR) Negative SARS-CoV-2 (Negative) Influenza Type A (PCR) Negative PCR FLU A (Negative) Influenza Type B (PCR) Negative PCR FLU B (Negative) RSV (PCR) Negative PCR RSV (Negative) 04/08/23 Range/Units 20:10 WBC 10.01 (4.50-11.00) K/uL RBC 4.16 (4.00-5.20) m/uL Hgb 11.9 L (12.0-16.0) gm/dL Hct 36.6 (33.0-51.0) % MCV 88 (80-100) fL MCH 29 (26-34) pg MCHC 33 (32-36) gm/dL RDW Coeff of [place] 12.2 (11.5-15.5) % Plt Count 241 (140-440) K/uL Neut % (Auto) 73.6 H (42.0-72.0) % Lymph % (Auto) 16.1 L (20-44) % [place] % (Auto) 8.9 (0.0-11.0) % Eos % (Auto) 0.9 (0.0-7.0) % Baso % (Auto) 0.3 (0.0-3.0) % Neut # (Auto) 7.40 H (1.7-7.0) K/uL Lymph # (Auto) 1.60 (0.90-2.90) K/uL [place] # (Auto) 0.90 (0.00-0.90) K/UL Eos # (Auto) 0.09 (0.00-0.50) K/uL Baso # (Auto) 0.03 (0.00-0.30) K/uL Abs Immat Gran (auto) 0.02 (0.00-0.30) K/uL Imm/Tot Granulo (auto) 0.2 % Sodium (135-149) mmol/L Potassium (3.6-5.1) mmol/L Chloride (96-114) mmol/L Carbon Dioxide (20-32) mmol/L Anion Gap (7-15) mEq/L BUN (5-24) mg/dL Creatinine (0.5-1.5) mg/dL Estimated Creat Clear Estimated GFR ml/min Glucose (60-115) mg/dL Lactate (0.5-1.9) mmol/L Calcium (8.4-10.6) mg/dL C-Reactive Protein (0.5-1.0) mg/dL Procalcitonin (<0.50) ng/mL HCG, Qual (Negative) Urine Color (Yellow) Urine Appearance (Clear) Urine pH (5.0-8.5) Ur Specific [place] (1.000-1.030) Urine Protein (Negative) Urine Glucose (UA) (Negative) Urine Ketones (Negative) Urine Blood (Negative) Urine Nitrite (Negative) Urine Bilirubin (Negative) Urine Urobilinogen (0.2-1.0) Ur Leukocyte Esterase (Negative) Urine RBC (0-2) Urine WBC (0-5) Ur Squamous Epith Cells (None-Few) Urine Bacteria (None) SARS-CoV-2 (PCR) (Negative) Influenza Type A (PCR) (Negative) Influenza Type B (PCR) (Negative) RSV (PCR) (Negative) <Phil Arzola MD - Last Filed: 04/08/23 18:34> Lab Results 04/08/23 04/08/23 04/08/23 Range/Units 18:10 19:30 19:50 WBC (4.50-11.00) K/uL RBC (4.00-5.20) m/uL Hgb (12.0-16.0) gm/dL Hct (33.0-51.0) % MCV (80-100) fL MCH (26-34) pg MCHC (32-36) gm/dL RDW Coeff of [place] (11.5-15.5) % Plt Count (140-440) K/uL Neut % (Auto) (42.0-72.0) % Lymph % (Auto) (20-44) % [place] % (Auto) (0.0-11.0) % Eos % (Auto) (0.0-7.0) % Baso % (Auto) (0.0-3.0) % Neut # (Auto) (1.7-7.0) K/uL Lymph # (Auto) (0.90-2.90) K/uL [place] # (Auto) (0.00-0.90) K/UL Eos # (Auto) (0.00-0.50) K/uL Baso # (Auto) (0.00-0.30) K/uL Abs Immat Gran (auto) (0.00-0.30) K/uL Imm/Tot Granulo (auto) % Sodium 135 (135-149) mmol/L Potassium 3.4 L (3.6-5.1) mmol/L Chloride 100 (96-114) mmol/L Carbon Dioxide 25 (20-32) mmol/L Anion Gap 10 (7-15) mEq/L BUN 11 (5-24) mg/dL Creatinine 0.6 (0.5-1.5) mg/dL Estimated Creat Clear 107.77 Estimated GFR 120 ml/min Glucose 96 (60-115) mg/dL Lactate 1.3 (0.5-1.9) mmol/L Calcium 8.2 L (8.4-10.6) mg/dL C-Reactive Protein 19.2 H (0.5-1.0) mg/dL Procalcitonin 0.26 (<0.50) ng/mL HCG, Qual Negative (Negative) Urine Color Yellow (Yellow) Urine Appearance Clear (Clear) Urine pH 6.0 (5.0-8.5) Ur Specific [place] >= 1.030 (1.000-1.030) Urine Protein 2+ A (Negative) Urine Glucose (UA) Negative (Negative) Urine Ketones Negative (Negative) Urine Blood 1+ A (Negative) Urine Nitrite Negative (Negative) Urine Bilirubin Negative (Negative) Urine Urobilinogen 0.2 (0.2-1.0) Ur Leukocyte Esterase Trace A (Negative) Urine RBC 0-2 (0-2) Urine WBC 5-10 A (0-5) Ur Squamous Epith Cells None (None-Few) Urine Bacteria Few A (None) SARS-CoV-2 (PCR) Negative SARS-CoV-2 (Negative) Influenza Type A (PCR) Negative PCR FLU A (Negative) Influenza Type B (PCR) Negative PCR FLU B (Negative) RSV (PCR) Negative PCR RSV (Negative) 04/08/23 Range/Units 20:10 WBC 10.01 (4.50-11.00) K/uL RBC 4.16 (4.00-5.20) m/uL Hgb 11.9 L (12.0-16.0) gm/dL Hct 36.6 (33.0-51.0) % MCV 88 (80-100) fL MCH 29 (26-34) pg MCHC 33 (32-36) gm/dL RDW Coeff of [place] 12.2 (11.5-15.5) % Plt Count 241 (140-440) K/uL Neut % (Auto) 73.6 H (42.0-72.0) % Lymph % (Auto) 16.1 L (20-44) % [place] % (Auto) 8.9 (0.0-11.0) % Eos % (Auto) 0.9 (0.0-7.0) % Baso % (Auto) 0.3 (0.0-3.0) % Neut # (Auto) 7.40 H (1.7-7.0) K/uL Lymph # (Auto) 1.60 (0.90-2.90) K/uL [place] # (Auto) 0.90 (0.00-0.90) K/UL Eos # (Auto) 0.09 (0.00-0.50) K/uL Baso # (Auto) 0.03 (0.00-0.30) K/uL Abs Immat Gran (auto) 0.02 (0.00-0.30) K/uL Imm/Tot Granulo (auto) 0.2 % Sodium (135-149) mmol/L Potassium (3.6-5.1) mmol/L Chloride (96-114) mmol/L Carbon Dioxide (20-32) mmol/L Anion Gap (7-15) mEq/L BUN (5-24) mg/dL Creatinine (0.5-1.5) mg/dL Estimated Creat Clear Estimated GFR ml/min Glucose (60-115) mg/dL Lactate (0.5-1.9) mmol/L Calcium (8.4-10.6) mg/dL C-Reactive Protein (0.5-1.0) mg/dL Procalcitonin (<0.50) ng/mL HCG, Qual (Negative) Urine Color (Yellow) Urine Appearance (Clear) Urine pH (5.0-8.5) Ur Specific [place] (1.000-1.030) Urine Protein (Negative) Urine Glucose (UA) (Negative) Urine Ketones (Negative) Urine Blood (Negative) Urine Nitrite (Negative) Urine Bilirubin (Negative) Urine Urobilinogen (0.2-1.0) Ur Leukocyte Esterase (Negative) Urine RBC (0-2) Urine WBC (0-5) Ur Squamous Epith Cells (None-Few) Urine Bacteria (None) SARS-CoV-2 (PCR) (Negative) Influenza Type A (PCR) (Negative) Influenza Type B (PCR) (Negative) RSV (PCR) (Negative) <Remberto Anderson MD - Last Filed: 04/08/23 22:09> Discharge Plan Discharge Clinical Impression: Pyelonephritis <Phil Arzola MD - Last Filed: 04/08/23 18:34> Patient Disposition: Home, Self-Care <Phil Arzola MD - Last Filed: 04/08/23 18:34> Condition: Stable <Phil Arzola MD - Last Filed: 04/08/23 18:34> Instructions: Kidney Infection (ED) <Phil Arzola MD - Last Filed: 04/08/23 18:34> Additional Instructions: Cipro twice a day for 10 days with outpatient follow-up in 7 days. Briggs as needed for pain Follow-up with your doctor in 1 week. Rest Fluids <Phil Arzola MD - Last Filed: 04/08/23 18:34> Activity Level: No Restrictions <Phil Arzola MD - Last Filed: 04/08/23 18:34> No Restrictions <Remberto Anderson MD - Last Filed: 04/08/23 22:09> Discharge Diet: Regular <Phil Arzola MD - Last Filed: 04/08/23 18:34> Regular <Remberto Anderson MD - Last Filed: 04/08/23 22:09> Prescriptions: No Action cyclobenzaprine 10 mg tablet 10 mg PO TID PRN (Reason: muscle spasm) Qty: 30 0RF acetaminophen 500 mg Tablet 1,000 mg PO Q6H Qty: 100 0RF ketorolac 10 mg Tablet 10 mg PO Q6H Qty: 14 0RF oxycodone 5 mg tablet 5 mg PO Q8H PRN (Reason: pain) Qty: 21 0RF <Phil Arzola MD - Last Filed: 04/08/23 18:34> Follow Up/Referrals: Remberto Anderson MD [Primary Care Provider] - <Phil Arzola MD - Last Filed: 04/08/23 18:34> Stand Alone Forms: MyHealth Info Instructions <Phil Arzola MD - Last Filed: 04/08/23 18:34>
[2023-04-08 18:51] LABS: Bacteria Urine Few; RBC Urine 0-2 (0-2)
[2023-04-08 18:54] LABS: PCR FLU A Negative PCR FLU A (Negative); PCR FLU B Negative PCR FLU B (Negative); PCR RSV Negative PCR RSV (Negative)
[2023-04-08 19:02] LABS: SARS PCR* Negative SARS-CoV-2 (Negative)
--- NOTE | 2023-04-08 19:29 | CRLHL7_ITS ---
For Patients: As a result of the Century Cures Act, medical imaging exams and procedure reports are released immediately into your electronic medical record. You may view this report before your referring provider. If you have questions, please contact your health care provider. INDICATION: Back pain, lower abdominal pain. TECHNIQUE: Multiplanar CT examination of the abdomen and pelvis were acquired after the administration of 56 mL Isovue 370 intravenously. COMPARISON: CT abdomen pelvis 02/27/2022. FINDINGS: Lower chest: Unremarkable. Liver: Normal. Gallbladder/Biliary: Normal. No biliary ductal dilitation. Pancreas: Normal. Spleen: Normal. Adrenal Glands: Normal. Kidneys: There is a region of focal heterogeneous hypoenhancement involving the mid to lower pole of the right kidney which does not spare the cortical rim (2:51 and 5:100). Stable nonobstructive urinary calculus within the right kidney collecting system. The left kidney appears normal. No obstructive calculi or hydronephrosis. Ureters: Unremarkable. Bladder: Unremarkable. Bowel: No obstruction or bowel wall thickening. The appendix is normal. No significant colonic diverticulosis. Pelvic organs: Prominent periuterine vasculature. Otherwise, the uterus appears unremarkable. No adnexal masses. Likely left corpus luteum. Peritoneum: No free fluid or pneumoperitoneum. Vessels: Normal. Portal vein remains patent. No significant atherosclerotic disease. Lymph Nodes: No lymphadenopathy. Abdominal Wall/Soft Tissues: Unremarkable. Bones: Unremarkable. IMPRESSION: 1. Findings compatible with acute pyelonephritis of the right kidney. No organized or drainable abscess identified. 2. Prominent periuterine vasculature and gonadal veins can be seen in the setting of pelvic congestion syndrome. Please note that all CT scans at this facility use dose modulation, iterative reconstruction, and/or weight-based dosing when appropriate to reduce radiation dose to as low as reasonably achievable. Dictated by Louie Rodríguez MD @ 04/08/2023 9:54:57 PM (Electronically Signed)
[2023-04-08] MEDS: 0.9 % SODIUM CHLORIDE 1000 ml 1,000 ML IV (19:30)
[2023-04-08 20:11] LABS: Lactate* 1.3 mmol/L (0.5-1.9)
[2023-04-08 20:14] LABS: Basophils Absolute Auto 0.03 K/uL (0.00-0.30); Basophils Percent Auto 0.3 % (0.0-3.0); Eosinophils Absolute Auto 0.09 K/uL (0.00-0.50); Eosinophils Percent Auto 0.9 % (0.0-7.0); Hematocrit 36.6 % (33.0-51.0); Hemoglobin* 11.9 gm/dL (12.0-16.0); Immature Granulocytes Abs Auto 0.02 K/uL (0.00-0.30); Immature Granulocytes Pct Auto 0.2 %; Lymphocytes Percent Auto 16.1 % (20-44); Mean Corpuscular HGB Conc 33 gm/dL (32-36); Mean Corpuscular Hemoglobin 29 pg (26-34); Mean Corpuscular Volume 88 fL (80-100); Monocytes Percent Auto 8.9 % (0.0-11.0); Neutrophils Percent Auto 73.6 % (42.0-72.0); Platelet Count* 241 K/uL (140-440); RDW Coefficient of Variation % 12.2 % (11.5-15.5); Red Blood Count 4.16 m/uL (4.00-5.20); White Blood Count* 10.01 K/uL (4.50-11.00)
[2023-04-08 20:18] LABS: Slide Review Reflex No
[2023-04-08 20:26] LABS: Chloride* 100 mmol/L (96-114); Potassium* 3.4 mmol/L (3.6-5.1); Sodium* 135 mmol/L (135-149)
[2023-04-08 20:29] LABS: Creatinine* 0.6 mg/dL (0.5-1.5); Est. Creatinine Clearance* 107.77; Estimated Glomerular Filt Rate 120 ml/min
[2023-04-08 20:30] LABS: Anion Gap 10 mEq/L (7-15); Blood Urea Nitrogen* 11 mg/dL (5-24); Calcium* 8.2 mg/dL (8.4-10.6); Carbon Dioxide* 25 mmol/L (20-32); Glucose* 96 mg/dL (60-115)
[2023-04-08 20:35] LABS: HCG Qualitative Serum* Negative (Negative)
[2023-04-08 20:44] LABS: C Reactive Protein* 19.2 mg/dL (0.5-1.0)
[2023-04-08 20:46] LABS: Procalcitonin* 0.26 ng/mL (<0.50)
[2023-04-08] MEDS: HYDROmorphone 0.5 mg/0.5 ml inj IVP (22:02)
[2023-04-08] MEDS: cefTRIAXone 1 GM in 0.9 % SODIUM CHLORIDE Mini-bag 100 ML IVPB (22:14)
== END 2023-04-08 22:49 | disposition home or self-care (01) ==
PROVIDERS: Emergency Provider Family Medicine; PCP Internal Medicine
DX: N12 Tubulo-interstitial nephritis, not specified as acute or chronic (principal)
CPT/HCPCS: 36415; 74177; 80048; 81001; 83605; 84145; 84703; 85025; 86140; 87040; 87086; 87186; 87631; 96365; 96372; 96375; 99283; 99284; J0696; J1170; J1885; J7030; Q9967

== ENCOUNTER 2023-04-28 12:37 | Emergency (ER) | payer OTHER, SELFPAY ==
[2023-04-28 12:54] VITALS: BP 99/56; PULSE 84; RESP 14; TEMP 37.1; O2SAT 100; BMI 21.3
--- NOTE | 2023-04-28 13:11 | CRLHL7_ITS ---
For Patients: As a result of the Century Cures Act, medical imaging exams and procedure reports are released immediately into your electronic medical record. You may view this report before your referring provider. If you have questions, please contact your health care provider. Indication: Fall with hematoma. Technique: One-view AP x-ray of the pelvis. Comparison: None available Findings: No fractures. The hips are unremarkable on this single AP view. Presumed pelvic phleboliths. Unremarkable bowel gas pattern. Impression: No fracture or subluxation identified. Dictated by Marino Dooley MD @ 04/28/2023 2:32:37 PM (Electronically Signed)
--- NOTE | 2023-04-28 13:14 | ED.GENADULT ---
HPI - General Adult General Date Seen: 04/28/23 Chief complaint: Hip Injury/Pain Stated complaint: Fell 1 week ago, L buttock pain Time Seen by Provider: 04/28/23 13:01 Source: patient Mode of arrival: ambulatory Limitations: no limitations History of Present Illness HPI narrative: Patient is a 37-year-old woman who fell 1 week ago landing on her left buttock. She has had swelling and bruising in the area and she feels like it is getting worse rather than better. She is able to walk okay but pain keeps her up at night as it is throbbing and difficult to lay on that side. No other injuries or complaints. Does not take any blood thinners. Related Data Previous Rx's Medication Instructions Recorded acetaminophen 500 mg tablet 1,000 mg (2 x 500 mg) PO Q6H #100 02/28/22 tabs Allergies Allergy/AdvReac Type Severity Reaction Status Date / Time No Known Drug Allergies Allergy Verified 04/08/23 20:54 PFSH PFSH Medical History Neck muscle spasm ?M62.838 - Other muscle spasm (ICD-10) Ovarian hemorrhage ?N83.8 - Other noninflammatory disorders of ovary, fallopian tube and broad ligament (ICD-10) ALANNA (generalized anxiety disorder) ?F41.1 - Generalized anxiety disorder (ICD-10) PTSD (post-traumatic stress disorder) ?F43.10 - Post-traumatic stress disorder, unspecified (ICD-10) Panic disorder with agoraphobia ?F40.01 - Agoraphobia with panic disorder (ICD-10) Primary insomnia ?F51.01 - Primary insomnia (ICD-10) GERD (gastroesophageal reflux disease) ?K21.9 - Gastro-esophageal reflux disease without esophagitis (ICD-10) Migraine ?G43.909 - Migraine, unspecified, not intractable, without status migrainosus (ICD-10) ADD (attention deficit disorder) ?F98.8 - Other specified behavioral and emotional disorders with onset usually occurring in childhood and adolescence (ICD-10) Depression ?F32.A - Depression, unspecified (ICD-10) Surgical History H/O bilateral breast implants ?Z98.82 - Breast implant status (ICD-10) History of appendectomy ?Z90.49 - Acquired absence of other specified parts of digestive tract (ICD-10) H/O wisdom tooth extraction ?K08.409 - Partial loss of teeth, unspecified cause, unspecified class (ICD-10) Social History Smoking Status: Current every day smoker What tobacco products do you use: cigarettes Do you use any of these nicotine containing products: None Second hand tobacco smoke exposure: No How often do you have a drink containing alcohol: never How often do you have six or more drinks on one occasion: Never AUDIT-C Alcohol total score: 0 Non-prescribed substance use: denies use service: No Exam Narrative: Exam Narrative: Vital signs reviewed In general, alert, well-appearing. Back: She has bruising on the left gluteal area and what feels like probably a hematoma there, there is no overlying erythema or warmth. Range of motion of the hip is full. Const: Vital Signs, click to edit/add: Vital Signs - 24 hr 04/28/23 12:54 04/28/23 14:51 04/28/23 14:52 Temperature 98.7 F 98.7 F Pulse Rate [Pulse Oximeter] 84 80 80 Respiratory Rate 14 14 14 Blood Pressure [Ri ght Upper Arm] 99/56 L 105/62 105/62 Pulse Oximetry 100 100 Oxygen Delivery Me thod Room Air Room Air Documenting provider has reviewed patient's vital signs: yes Course Course ED Course: Patient had x-rays of the pelvis which by my review are negative for fracture, hip looks normal, final radiology read is negative. I checked hemoglobin which was 11.2, baseline is unknown although she says she thinks as far she knows her hemoglobin has always been normal. Regardless, I do not have concerns about ongoing blood loss. I have recommended supportive measures, ibuprofen, Tylenol, ice. She had an oxycodone here and I gave her for for at home at night as she is having difficulty with sleep. Discussed that this should gradually improve although it may take several weeks for it to completely resolve. I would not expect that this would continue to worsen so she is having severe uncontrolled pain, redness, fevers etcetera she should be seen again. Primary care follow-up if not improving despite treatment. Vital Signs Vital signs: Initial Vital Signs Temperature 98.7 F 04/28/23 12:54 Temperature Source Temporal Artery Scan 04/28/23 12:54 Pulse Rate 84 04/28/23 12:54 Pulse Rhythm Regular 04/28/23 12:54 Respiratory Rate 14 04/28/23 12:54 Blood Pressure 99/56 L 04/28/23 12:54 Blood Pressure Mean 70 04/28/23 12:54 Blood Pressure Position Sitting 04/28/23 12:54 Pulse Oximetry 100 04/28/23 12:54 Oxygen Delivery Method Room Air 04/28/23 12:54 Vital Signs Temperature 98.7 F 04/28/23 12:54 Pulse Rate 84 04/28/23 12:54 Respiratory Rate 14 04/28/23 12:54 Blood Pressure 99/56 L 04/28/23 12:54 Pulse Oximetry 100 04/28/23 12:54 Oxygen Delivery Method Room Air 04/28/23 12:54 Temperature 98.7 F 04/28/23 14:51 Pulse Rate 80 04/28/23 14:52 Respiratory Rate 14 04/28/23 14:52 Blood Pressure 105/62 04/28/23 14:52 Pulse Oximetry 100 04/28/23 14:52 Oxygen Delivery Method Room Air 04/28/23 14:52 Medications Administered Medications: Discontinued Medications Generic Name Dose Route Start Last Admin Trade Name Freq PRN Reason Stop Dose Admin Oxycodone HCl 5 mg 04/28/23 13:34 04/28/23 13:49 Oxycodone 5 Mg Tablet PO 04/28/23 13:35 5 mg ONCE ONE Administration Medical Decision Making Lab Data Labs: Lab Results 04/28/23 Range/Units 13:55 WBC 6.81 (4.50-11.00) K/uL RBC 3.87 L (4.00-5.20) m/uL Hgb 11.2 L (12.0-16.0) gm/dL Hct 34.0 (33.0-51.0) % MCV 88 (80-100) fL MCH 29 (26-34) pg MCHC 33 (32-36) gm/dL RDW Coeff of [place] 13.3 (11.5-15.5) % Plt Count 323 (140-440) K/uL Neut % (Auto) 47.0 (42.0-72.0) % Lymph % (Auto) 38.9 (20-44) % [place] % (Auto) 10.1 (0.0-11.0) % Eos % (Auto) 3.5 (0.0-7.0) % Baso % (Auto) 0.4 (0.0-3.0) % Neut # (Auto) 3.19 (1.7-7.0) K/uL Lymph # (Auto) 2.65 (0.90-2.90) K/uL [place] # (Auto) 0.70 (0.00-0.90) K/UL Eos # (Auto) 0.24 (0.00-0.50) K/uL Baso # (Auto) 0.03 (0.00-0.30) K/uL Abs Immat Gran (auto) 0.01 (0.00-0.30) K/uL Imm/Tot Granulo (auto) 0.1 % Discharge Plan Discharge Clinical Impression: Traumatic hematoma of buttock Patient Disposition: Home w/ Parent or Adult Condition: Improved Instructions: Hematoma (ED) Additional Instructions: Ibuprofen 400 mg plus Tylenol 1000 mg three times daily with food. Oxycodone if needed at night. Ice a few times a day. Swelling and pain should gradually less but it can take several weeks for this to resolve If you develop redness or fever, return to the ER at any time. Follow up in clinic if you are not imroving Prescriptions: No Action acetaminophen 500 mg Tablet 1,000 mg PO Q6H Qty: 100 0RF Follow Up/Referrals: Remberto Anderson MD [Primary Care Provider] - Stand Alone Forms: Sp[employer] Info Instructions
[2023-04-28] MEDS: OXYCODONE 5 MG TABLET PO (13:49)
[2023-04-28 14:05] LABS: Basophils Absolute Auto 0.03 K/uL (0.00-0.30); Basophils Percent Auto 0.4 % (0.0-3.0); Eosinophils Absolute Auto 0.24 K/uL (0.00-0.50); Eosinophils Percent Auto 3.5 % (0.0-7.0); Hemoglobin* 11.2 gm/dL (12.0-16.0); Immature Granulocytes Abs Auto 0.01 K/uL (0.00-0.30); Immature Granulocytes Pct Auto 0.1 %; Lymphocytes Absolute Auto 2.65 K/uL (0.90-2.90); Lymphocytes Percent Auto 38.9 % (20-44); Mean Corpuscular HGB Conc 33 gm/dL (32-36); Mean Corpuscular Hemoglobin 29 pg (26-34); Mean Corpuscular Volume 88 fL (80-100); Monocytes Percent Auto 10.1 % (0.0-11.0); Neutrophils Absolute Auto 3.19 K/uL (1.7-7.0); Platelet Count* 323 K/uL (140-440); RDW Coefficient of Variation % 13.3 % (11.5-15.5); Red Blood Count 3.87 m/uL (4.00-5.20); White Blood Count* 6.81 K/uL (4.50-11.00)
[2023-04-28 14:18] LABS: Slide Review Reflex No
--- NOTE | 2023-04-28 14:19 | ED.NURSE ---
Report received from MANINDER Mckay.
[2023-04-28 14:51] VITALS: BP 105/62; PULSE 80; RESP 14; TEMP 37.1
[2023-04-28 14:52] VITALS: BP 105/62; PULSE 80; RESP 14; O2SAT 100
== END 2023-04-28 14:52 | disposition home or self-care (01) ==
PROVIDERS: Emergency Provider Emergency Medicine; PCP Internal Medicine
DX: S30.0XXA Contusion of lower back and pelvis, initial encounter (principal); W19.XXXA Unspecified fall, initial encounter
CPT/HCPCS: 36415; 72170; 85025; 99283; 99284; A9270

== ENCOUNTER 2023-08-11 04:14 | Emergency (ER) | payer MEDICAID, SELFPAY ==
--- NOTE | 2023-08-11 04:16 | ED_ITS ---
HPI - General Adult General Date Seen: 08/11/23 Chief complaint: Abdominal Pain Stated complaint: Abdominal Pain right side Time Seen by Provider: 08/11/23 04:16 History of Present Illness HPI narrative: 38-year-old female with a past medical history of right ovarian oophorectomy and salpingectomy for ruptured ovarian cyst with ovarian hemorrhage and hemoperitoneum, appendectomy,, insomnia, migraines, ADD, GERD, anxiety, depression, PTSD, pyelonephritis in March 2023 (urine culture grew pansensitive E coli CT showed 1. Findings compatible with acute pyelonephritis of the right kidney. No organized or drainable abscess identified. 2. Prominent periuterine vasculature and gonadal veins can be seen in the setting of pelvic congestion syndrome.) She did have a ruptured right ovarian cyst with hemoperitoneum in February 2022. She underwent laparoscopic right salpingectomy oophorectomy done here by Dr. Anaya. Her most recent visit to the ER occurred last fall when she had pyelonephritis. She has been healthy and well since then no recent symptoms of abdominal pain, nausea vomiting, diarrhea, or other urinary symptoms. She did start her menstrual cycle yesterday with some very light vaginal bleeding. The bleeding is heavier, ?like a full-blown period ? tonight. She does get some pelvic cramping with her periods. However, she was awoken from sleep couple of hours prior to arrival with intense severe sharp and crampy pain affecting her right lower quadrant and right pelvis. She says it feels like something is ?floating? inside her body and feels similar to when she had ruptured cyst with internal bleed a couple of years ago. The pain was so intense and made her nauseous. She threw up twice (yellow). Bowel movements have been normal. Urination has been normal. She does not think she is . No vaginal discharge. The pain does not radiate. No flank pain. No left-sided pain. No upper abdominal pain Related Data Home Medications Medication Instructions Recorded Confirmed omeprazole 20 mg delayed 20 mg PO DAILY 08/11/23 08/11/23 release,disintegrating tablet Allergies Allergy/AdvReac Type Severity Reaction Status Date / Time No Known Drug Allergies Allergy Verified 04/08/23 20:54 PFSH [facility] Medical History Neck muscle spasm ?M62.838 - Other muscle spasm (ICD-10) Ovarian hemorrhage ?N83.8 - Other noninflammatory disorders of ovary, fallopian tube and broad ligament (ICD-10) ALANNA (generalized anxiety disorder) ?F41.1 - Generalized anxiety disorder (ICD-10) PTSD (post-traumatic stress disorder) ?F43.10 - Post-traumatic stress disorder, unspecified (ICD-10) Panic disorder with agoraphobia ?F40.01 - Agoraphobia with panic disorder (ICD-10) Primary insomnia ?F51.01 - Primary insomnia (ICD-10) GERD (gastroesophageal reflux disease) ?K21.9 - Gastro-esophageal reflux disease without esophagitis (ICD-10) Migraine ?G43.909 - Migraine, unspecified, not intractable, without status migrainosus (ICD-10) ADD (attention deficit disorder) ?F98.8 - Other specified behavioral and emotional disorders with onset usually occurring in childhood and adolescence (ICD-10) Depression ?F32.A - Depression, unspecified (ICD-10) Surgical History H/O bilateral breast implants ?Z98.82 - Breast implant status (ICD-10) History of appendectomy ?Z90.49 - Acquired absence of other specified parts of digestive tract (ICD- 10) H/O wisdom tooth extraction ?K08.409 - Partial loss of teeth, unspecified cause, unspecified class (ICD- 10) Social History Smoking Status: Current every day smoker What tobacco products do you use: cigarettes Do you use any of these nicotine containing products: None Second hand tobacco smoke exposure: No How often do you have a drink containing alcohol: never How often do you have six or more drinks on one occasion: Never AUDIT-C Alcohol total score: 0 Non-prescribed substance use: denies use service: No Exam Narrative: Exam Narrative: Constitutional: Appears well-developed and well-nourished. Alert. Conversant. Endorses discomfort and feels better when she is sitting with the head of the bed elevated about 45? P Non toxic. HENT: Head: Atraumatic. Nose: Nose normal. Mouth/Throat: Oral mucosa is clear and moist. no trismus. Pharynx normal. Tonsils symmetric. No tonsillar enlargement, erythema, or exudate. Eyes: Conjunctivae normal. EOM normal. Pupils equal, round, and reactive to light. No scleral icterus. Neck: Normal range of motion. Neck supple. No tracheal deviation present. Cardiovascular: Normal rate, regular rhythm. No gallop. No friction rub. No murmur heard. Symmetric radial artery pulses Pulmonary/Chest: Effort normal. No stridor. No respiratory distress. No wheezes. No rales. No rhonchi . No tenderness. Abdominal: Soft. Bowel sounds normal. No distension. No mass. Right lower quadrant and right pelvic tenderness. No rebound. No guarding. No CVA tenderness. No upper abdominal tenderness. No right upper quadrant tenderness Musculoskeletal: RUE: Normal range of motion. No tenderness. No deformity LUE: Normal range of motion. No tenderness. No deformity RLE: Normal range of motion. No edema. No tenderness. No deformity LLE: Normal range of motion. No edema. No tenderness. No deformity Neurological: Alert and oriented to person, place, and time. Normal strength. CN II-VII intact. No sensory deficit. GCS eye subscore is 4. GCS verbal subscore is 5. GCS motor subscore is 6. Normal coordination Skin: Skin is warm and dry. No rash noted. No pallor. Normal capillary refill. Psychiatric: Normal mood. Normal affect. Const: Vital Signs, click to edit/add: Vital Signs - 24 hr 08/11/23 04:21 Temperature 98.8 F Pulse Rate [Pulse Oximeter] 72 Respiratory Rate 16 Blood Pressure [Ri ght Upper Arm] 117/67 Pulse Oximetry 99 Oxygen Delivery Me thod Room Air Course Course ED Course: Recheck-preliminary report from microelectronics technician is that ultrasound shows absent right ovary, small (physiologic) cyst on left ovary. No free fluid. Reevaluation(s) Reevaluation #1: [id number] is still uncomfortable after Toradol. Will order Dilaudid. Still has isolated tenderness in right lower quadrant. No evolving or spreading pain. Still no flank pain. Urinalysis shows no hematuria or signs of kidney infection. Discussed the possibility for a stone without hematuria. She has had previous appendectomy. No history of Crohn's disease or inflammatory bowel disease. No associated diarrhea to suggest diverticulitis . Discussed for workup with CT scan. Also discussed risk of radiation from CT. We decided to go ahead with CT imaging. In review of her old scan from last fall there is mention of possible pelvic congestion syndrome. She was not aware of this. She does note that she has had increasingly painful periods over the past year to ever since she had her right oophorectomy. She does not really have an [employer] air[employer] control officer that she has followed up with. Patient denies any vaginal discharge or other concern for sexually transmitted infection. Reevaluation #2: Recheck-pain improved. Tolerable enough or she feels comfortable getting home. CT scan back in shows no acute findings. Discussed workup so far with the patient. She felt comfortable discharging to home. Discussed the bowel wall pain return precautions. Discussed incidental finding of the kidney stone in the right kidney noted on her CT Vital Signs Vital signs: Initial Vital Signs Temperature 98.8 F 08/11/23 04:21 Temperature Source Temporal Artery Scan 08/11/23 04:21 Pulse Rate 72 08/11/23 04:21 Respiratory Rate 16 08/11/23 04:21 Blood Pressure 117/67 08/11/23 04:21 Blood Pressure Mean 83 08/11/23 04:21 Blood Pressure Position Sitting 08/11/23 04:21 Pulse Oximetry 99 08/11/23 04:21 Oxygen Delivery Method Room Air 08/11/23 04:21 Vital Signs Temperature 98.8 F 08/11/23 04:21 Pulse Rate 72 08/11/23 04:21 Respiratory Rate 16 08/11/23 04:21 Blood Pressure 117/67 08/11/23 04:21 Pulse Oximetry 99 08/11/23 04:21 Oxygen Delivery Method Room Air 08/11/23 04:21 Temperature 98.8 F 08/11/23 04:21 Pulse Rate 72 08/11/23 04:21 Respiratory Rate 16 08/11/23 04:21 Blood Pressure 117/67 08/11/23 04:21 Pulse Oximetry 99 08/11/23 04:21 Oxygen Delivery Method Room Air 08/11/23 04:21 Medications Administered Medications: Generic Name Dose Route Start Last Admin Trade Name Freq PRN Reason Stop Dose Admin Hydromorphone HCl 0.5 mg 08/11/23 05:40 08/11/23 05:43 Hydromorphone 0.5 Mg/0.5 Ml Inj IVP 0.5 mg Q1H PRN Administration Pain Discontinued Medications Generic Name Dose Route Start Last Admin Trade Name Freq PRN Reason Stop Dose Admin Sodium Chloride 1,000 mls @ 1,000 mls/hr 08/11/23 04:45 08/11/23 06:56 0.9 % Sodium Chloride 1000 Ml IV 08/11/23 05:44 Infused .Q1H HONEY Infusion Ketorolac Tromethamine 15 mg 08/11/23 04:34 08/11/23 04:45 Ketorolac 15 Mg/Ml Inj IVP 08/11/23 04:35 15 mg ONCE ONE Administration Ondansetron HCl 4 mg 08/11/23 04:34 08/11/23 04:45 Ondansetron 2 Mg/Ml Inj IVP 08/11/23 04:35 4 mg ONCE ONE Administration Medical Decision Making MDM Narrative Medical decision making narrative: Pleasant 38-year-old female presenting to the ER today with her boyfriend for abrupt onset of severe right lower quadrant abdominal pain. Differential is broad. She has had previous appendectomy. She also has had previous right oophorectomy and salpingectomy for ruptured right ovarian cyst and hemoperitoneum. She has a history of pyelonephritis as well. Symptoms feel similar to when she had her ovarian cyst, per the patient. test is negative. No vaginal discharge or concern for sexually transmitted infection Consider ovarian pathology such as cyst, cyst rupture, hemorrhagic cyst, torsion. Pelvic ultrasound is obtained and does not show any large cyst on the left ovary. There is normal blood flow in the left ovary. Right ovary is surgically absent. Uterus normal. Urinalysis is negative for infection, pyelonephritis per No hematuria to suggest kidney stone. Also no pain radiating from the right lower quadrant to the flank. No fever or leukocytosis to suggest infection or inflammatory process such as right-sided colitis or diverticulitis. No abdominal bloating or distention or pain outside the right lower quadrant to suggest bowel obstruction. Exam is non peritoneal. Low likelihood of perforation, intra- abdominal abscess. However, with significant ongoing right lower quadrant pain, not much improved with Toradol, we were concerned about potential surgical pathology or possibly a stone without hydronephrosis. Using shared decision making we decided to go ahead with CT imaging Fortunately stone protocol CT is essentially negative. There is a nonobstructing stone within the right renal pelvis, not causing her pain. Discussed the stone with the patient and she understands it may pass in the future. At this point no definitive explanation for the patient's pain is identified. No evidence for any acute life-threatening medical or surgical condition requiring hospitalization or operation immediately. She will return to the ER within 18-24 hours if pain not completely improved. Abdominal pain return precautions reviewed and she will return right away if she has any worsening symptoms Incidentally, She does have finding of possum pelvic congestion syndrome noted on her CT scan from last fall. No clear mention of pelvic congestion syndrome on her noncontrast CT today. She also notes the has she has been having increasingly painful periods over the past year or so. Recommend outpatient follow-up with [employer] air[employer] control officer. She is in agreement. Lab Data Labs: Lab Results 08/11/23 08/11/23 Range/Units 04:39 05:03 WBC 8.09 (4.50-11.00) K/uL RBC 4.23 (4.00-5.20) m/uL Hgb 12.0 (12.0-16.0) gm/dL Hct 36.7 (33.0-51.0) % MCV 87 (80-100) fL MCH 28 (26-34) pg MCHC 33 (32-36) gm/dL RDW Coeff of [place] 12.4 (11.5-15.5) % Plt Count 254 (140-440) K/uL Neut % (Auto) 38.6 L (42.0-72.0) % Lymph % (Auto) 43.5 (20-44) % [place] % (Auto) 11.0 (0.0-11.0) % Eos % (Auto) 6.3 (0.0-7.0) % Baso % (Auto) 0.6 (0.0-3.0) % Neut # (Auto) 3.10 (1.7-7.0) K/uL Lymph # (Auto) 3.52 H (0.90-2.90) K/uL [place] # (Auto) 0.90 (0.00-0.90) K/UL Eos # (Auto) 0.51 H (0.00-0.50) K/uL Baso # (Auto) 0.05 (0.00-0.30) K/uL Abs Immat Gran (auto) 0.00 (0.00-0.30) K/uL Imm/Tot Granulo (auto) 0.0 % Sodium 137 (135-149) mmol/L Potassium 3.4 L (3.6-5.1) mmol/L Chloride 105 (96-114) mmol/L Carbon Dioxide 24 (20-32) mmol/L Anion Gap 8 (7-15) mEq/L BUN 13 (5-24) mg/dL Creatinine 0.6 (0.5-1.5) mg/dL Estimated Creat Clear 107.23 Estimated GFR 119 ml/min Glucose 103 (60-115) mg/dL Calcium 8.5 (8.4-10.6) mg/dL Urine Color Yellow (Yellow) Urine Appearance Clear (Clear) Urine pH 5.5 (5.0-8.5) Ur Specific [place] >= 1.030 (1.000-1.030) Urine Protein Negative (Negative) Urine Glucose (UA) Negative (Negative) Urine Ketones Negative (Negative) Urine Blood Negative (Negative) Urine Nitrite Negative (Negative) Urine Bilirubin Negative (Negative) Urine Urobilinogen 0.2 (0.2-1.0) Ur Leukocyte Esterase Negative (Negative) Urine RBC 0-2 (0-2) Urine WBC 0-2 (0-5) Ur Squamous Epith Cells Few (None-Few) Urine Bacteria None (None) Urine HCG, Qual Negative (Negative) Imaging Data U.S. pelvis: Attestation: I have reviewed the pertinent imaging results. Radiologist's impression: Findings: The uterus measures 8.1 x 3.7 x 4.5 centimeters. Normal uterine size and position. The endometrium measures 1 centimeter in double thickness. No endo metrial mass. The left ovary measures 4.4 x 2.5 x 2.8 centimeters. There is a homogeneously slightly hyperechoic left ovarian lesion that measures 1.7 x 1.1 x 1.5 centimeters. Probably a hemorrhagic cyst. No solid mass. Normal color Doppler and duplex waveforms in the left ovary. No pelvic free fluid. Impression: Small left ovarian lesion has a benign appearance, probably a small hemorrhagic cyst. The right ovary is surgically absent. CT scan - abdomen: Attestation: I have reviewed the pertinent imaging results. Radiologist's impression: IMPRESSION: 1. Nonobstructing right intrarenal calculus, measuring 5 mm. No evidence of ureteral calculus or hydroureteronephrosis. 2. Status post appendectomy and right oophorectomy. 3. On prior study patient had findings compatible with acute pyelonephritis of the right kidney. Follow-up evaluation of this is suboptimal on this unenhanced CT. 4. Otherwise, no evidence of acute intra-abdominal/pelvic process on this unenhanced CT. Discharge Plan Discharge Clinical Impression: Abdominal pain, right lower quadrant Patient Disposition: Home, Self-Care Condition: Stable Instructions: Abdominal Pain (ED), Pelvic Pain (ED) Additional Instructions: As we discussed, please come back to the ER right away if you have any worsening symptoms, for instance if you have worsening pain, develops fever, uncontrolled nausea or vomiting, or any other new concerning symptoms. If your pain is not completely resolved please come back to the ER within 18-24 hours for a recheck Please call the [facility] at to make an appointment with the [employer] airspace control officer Department for an ER follow-up appointment within 1-2 weeks. Prescriptions: No Action omeprazole 20 mg tablet,disintegrat, delay rel 20 mg PO DAILY Follow Up/Referrals: Remberto Anderson MD [Primary Care Provider] - Stand Alone Forms: Rayn Instructions
[2023-08-11 04:21] VITALS: BP 117/67; PULSE 72; RESP 16; TEMP 37.1; O2SAT 99; BMI 22.1
--- NOTE | 2023-08-11 04:34 | US_ITS ---
Final Report Patient: NAHUM ROB Facility:?[facility] Patient ID:?[id number] Site Patient ID:?[id number]. Site :?[id number] Study:?US Pelvis TRANSVAGINAL-08/11/2023 5:32:44 AM Ordering Physician:ARJUN Final Report: Indication: Sudden onset right lower quadrant pain, history of right oophorectomy and appendectomy Technique: Grayscale, color, and duplex Doppler ultrasound imaging of the pelvis to include the uterus and left ovary is obtained from a transvaginal approach. Transvaginal imaging was necessary for better visualization of the ovary. Comparison: None Findings: The uterus measures 8.1 x 3.7 x 4.5 centimeters. Normal uterine size and position. The endometrium measures 1 centimeter in double thickness. No endometrial mass. The left ovary measures 4.4 x 2.5 x 2.8 centimeters. There is a homogeneously slightly hyperechoic left ovarian lesion that measures 1.7 x 1.1 x 1.5 centimeters. Probably a hemorrhagic cyst. No solid mass. Normal color Doppler and duplex waveforms in the left ovary. No pelvic free fluid. Impression: Small left ovarian lesion has a benign appearance, probably a small hemorrhagic cyst. The right ovary is surgically absent. Dictated by Guera Mcclain MD @ 08/11/2023 6:01:08 AM (Electronic Signature)
[2023-08-11 04:45] LABS: Basophils Absolute Auto 0.05 K/uL (0.00-0.30); Basophils Percent Auto 0.6 % (0.0-3.0); Eosinophils Absolute Auto 0.51 K/uL (0.00-0.50); Eosinophils Percent Auto 6.3 % (0.0-7.0); Hematocrit 36.7 % (33.0-51.0); Lymphocytes Absolute Auto 3.52 K/uL (0.90-2.90); Lymphocytes Percent Auto 43.5 % (20-44); Mean Corpuscular HGB Conc 33 gm/dL (32-36); Mean Corpuscular Hemoglobin 28 pg (26-34); Mean Corpuscular Volume 87 fL (80-100); Neutrophils Percent Auto 38.6 % (42.0-72.0); Platelet Count* 254 K/uL (140-440); RDW Coefficient of Variation % 12.4 % (11.5-15.5); Red Blood Count 4.23 m/uL (4.00-5.20); White Blood Count* 8.09 K/uL (4.50-11.00)
[2023-08-11] MEDS: ONDANSETRON 2 MG/ML inj 4 MG IVP (04:45)
[2023-08-11] MEDS: KETOROLAC 15 MG/ML inj IVP (04:45)
[2023-08-11] MEDS: 0.9 % SODIUM CHLORIDE 1000 ml 1,000 ML IV (04:45)
[2023-08-11 04:46] LABS: Slide Review Reflex No
[2023-08-11 04:57] LABS: Chloride* 105 mmol/L (96-114)
[2023-08-11 04:58] LABS: Potassium* 3.4 mmol/L (3.6-5.1); Sodium* 137 mmol/L (135-149)
[2023-08-11 05:00] LABS: Anion Gap 8 mEq/L (7-15); Carbon Dioxide* 24 mmol/L (20-32); Creatinine* 0.6 mg/dL (0.5-1.5); Est. Creatinine Clearance* 107.23; Estimated Glomerular Filt Rate 119 ml/min
[2023-08-11 05:01] LABS: Blood Urea Nitrogen* 13 mg/dL (5-24); Calcium* 8.5 mg/dL (8.4-10.6); Glucose* 103 mg/dL (60-115)
--- NOTE | 2023-08-11 05:07 | PC.NURSE ---
patient to US
[2023-08-11 05:09] LABS: Appearance Urine Clear (Clear); Bilirubin Urine Negative (Negative); Blood Urine Negative (Negative); Color Urine Yellow (Yellow); Glucose Urine Negative (Negative); Ketones Urine Negative (Negative); Leukocyte Esterase Urine Negative (Negative); Nitrite Urine Negative (Negative); Protein Urine Negative (Negative); Specific Gravity Urine >= 1.030 (1.000-1.030); Urobilinogen Urine 0.2 (0.2-1.0); pH Urine 5.5 (5.0-8.5)
[2023-08-11 05:17] LABS: RBC Urine 0-2 (0-2); Squamous Epithelial Cell Urine Few (None-Few); Ur HCG Qualitative* Negative (Negative); WBC Urine 0-2 (0-5)
--- NOTE | 2023-08-11 05:40 | CT_ITS ---
Final Report Patient: NAHUM ROB Facility:?[facility] Patient ID:?[id number] Site Patient ID:?[id number]. Site :?[id number] Study:?CT Abdomen/Pelvis W/O-08/11/2023 5:58:30 AM Ordering Physician:ARJUN Final Report: INDICATION: RLQ pain, prior appendectomy and R oophorectomy TECHNIQUE: CT abdomen and pelvis without contrast COMPARISON: CT abdomen and pelvis with IV contrast April 18, 2023. FINDINGS: Kidney/ureters: Kidneys are normal in caliber. On prior study patient had findings compatible with acute pyelonephritis of the right kidney. Follow-up evaluation of this is suboptimal on this unenhanced CT. Nonobstructing right intrarenal calculus, measuring 5 mm. No evidence of ureteral calculus or hydroureteronephrosis. The bladder is decompressed. Liver/gallbladder/bile ducts: The liver is normal in size, shape and attenuation. Gallbladder is normal without visualized stones or inflammation. No biliary dilatation. Spleen/pancreas/adrenal glands: The spleen, adrenal glands and pancreas are within normal limits. GI tract: No bowel obstruction or inflammation. Mild-moderate stool burden throughout the colon. Status post appendectomy. Abdominal wall/omentum/peritoneum: No free air or significant free fluid. No mass or inflammation. Lymph nodes: No enlarged lymph nodes by size criteria. Vasculature: Abdominal aorta normal in caliber. Pelvis: The uterus and left ovary are visualized. Right ovary is not visualized as patient is reportedly status post right oophorectomy. Lower chest: Unremarkable. IMPRESSION: 1. Nonobstructing right intrarenal calculus, measuring 5 mm. No evidence of ureteral calculus or hydroureteronephrosis. 2. Status post appendectomy and right oophorectomy. 3. On prior study patient had findings compatible with acute pyelonephritis of the right kidney. Follow-up evaluation of this is suboptimal on this unenhanced CT. 4. Otherwise, no evidence of acute intra-abdominal/pelvic process on this unenhanced CT. Please note that all CT scans at this facility use dose modulation, iterative reconstruction, and/or weight-based dosing when appropriate to reduce radiation dose to as low as reasonably achievable. Dictated by Merlin Hopkins MD @ 08/11/2023 6:14:01 AM (Electronic Signature)
[2023-08-11] MEDS: HYDROmorphone 0.5 mg/0.5 ml inj IVP (05:43)
--- NOTE | 2023-08-11 06:55 | PC.NURSE ---
DC instructions reviewed with patient, she has no further questions and states understanding to directions. patient DC accompanied by buggy driver. all belongings sent with patient home.
== END 2023-08-11 06:56 | disposition home or self-care (01) ==
PROVIDERS: Emergency Provider Emergency Medicine; PCP Internal Medicine
DX: R10.31 Right lower quadrant pain (principal)
CPT/HCPCS: 36415; 74176; 76830; 80048; 81001; 81025; 85025; 93976; 96361; 96374; 96375; 99284; 99285; J1170; J1885; J2405; J7030

== ENCOUNTER 2024-07-14 13:45 | Emergency (ER) | payer BC, SELFPAY ==
--- OUTSIDE RECORDS SUMMARY | 2024-07-14 13:47 | XMS_ITS | Encounter Summary ---
Author Organization [place] Address [address] [place] [address] Care Team Providers Care Auto Parts Manager Name Role Phone Narda Young MD Unavailable [phone] Amauri Collins MD Unavailable [phone] [facility] Primary Care Provider Davina Obrien MD Unavailable [phone] Reason for Visit * Reason Comments Medication Refill Encounter Details Date Type Department Care Team (Late st Contact Info) Description 02/17/2022 [facility] [address] [place] [address] Amauri Collins MD [address] [place] [address] Medication Refill Social History Tobacco Use Types Packs/Day Years Used Date Smoking Tobacco: Every Day Cigarettes Smokeless Tobacco: Never Alcohol Use Standard Drinks/Week Comments Yes 0 (1 standard drink = 0.6 oz pur e alcohol) PHQ-2 Answer Date Recorded PHQ-2 Score 4 10/26/2021 Comments Unknown Sex and Gender Information Value Date Recorded Sex Assigned at Not on file 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 Gender Identity Not on file Sexual Orientation Not on file 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 Not on file Not on file documented as of this encounter Miscellaneous Notes * Telephone Encounter - Wanda Rosas, RN - 02/19/2022 8:08 AM CDT Routing refill request to provider for review/approval because: Drug not on the [facility] refill protocol documented in this encounter Plan of Treatment Upcoming Encounters Date Type Department Care Team (Late st Contact Info) Description 09/13/2024 11:00 AM CDT Office Visit [facility] [place] [address] [facility] [address] [place] [phone] Davina Obrien MD [address], [address] [address] documented as of this encounter Visit Diagnoses Diagnosis Strain of neck muscle, initial encounter documented in this encounter Additional Health Concerns Assessment Noted Time PHQ-9 Depression Total Score: 17 022 7:03 AM CDT documented as of this encounter Care Teams Auto Parts Manager Relationship Specialty Start Date End Date Clinic - [facility] [address] [place], [place] [address] PCP - General Internal Medicine 10/26/21 Narda Young MD [address] [id number] special forces warrant officer 09/22/21 Amauri Collins MD [address] [place], [place] [address] Assigned PCP 09/03/21 Davina Obrien MD [address], [address] [address] Physician special forces warrant officer 07/10/24 documented as of this encounter
--- OUTSIDE RECORDS SUMMARY | 2024-07-14 13:47 | XMS_ITS | Encounter Summary ---
Author Organization [place] Address [address] [place] [address] Care Team Providers Care Diamond Blender Name Role Phone No Ref-Primary, Physician Primary Care Provider Narda Young MD Unavailable [phone] Amauri Collins MD Unavailable [phone] [facility] Primary Care Provider Davina Obrien MD Unavailable [phone] Encounter Details Date Type Department Care Team (Late st Contact Info) Description 10/02/2021 [facility] [address] [place] [address] Amauri Collins MD [address] [place] [address] Social History Tobacco Use Types Packs/Day Years Used Date Smoking Tobacco: Every Day Cigarettes Smokeless Tobacco: Never Alcohol Use Standard Drinks/Week Comments Yes 0 (1 standard drink = 0.6 oz pur e alcohol) Comments No Sex and Gender Information Value Date Recorded Sex Assigned at Not on file 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 No / Unsure 09/25/2021 1:06 PM CDT documented as of this encounter Plan of Treatment Upcoming Encounters Date Type Department Care Team (Late st Contact Info) Description 09/13/2024 11:00 AM CDT Office Visit [facility] [place] [address] [facility] [address] [place] [phone] Davina Obrien MD [address], [facility] [address] [place], [place] [address] documented as of this encounter Visit Diagnoses Not on filedocumented in this encounter Additional Health Concerns Assessment Noted Time PHQ-9 Depression Total Score: 6 01/16/20 16 7:13 AM CDT documented as of this encounter Care Teams Diamond Blender Relationship Specialty Start Date End Date No Ref-Primary, Physician PCP - General 09/22/21 10/25/21 [facility] 303 [place], [place] [address] PCP - General Internal Medicine 10/26/21 Narda Young MD [address] [place] [address] [place], [place] [address] senior technical specialist 09/22/21 Amauri Collins MD [address] [place] [address] Assigned PCP 09/03/21 Davina Obrien MD [address], [facility] [address] [place] [address] Physician senior technical specialist 07/10/24 documented as of this encounter
--- OUTSIDE RECORDS SUMMARY | 2024-07-14 13:47 | XMS_ITS | Clinical Summary ---
Author Organization [place] Address [address] [place] [address] Care Team Providers Care Bending Shed Worker Name Role Phone Narda Young MD Unavailable [phone] Amauri Collins MD Unavailable [phone] Formerly Named [facility] Primary Care Provider Davina Obrien MD Unavailable [phone] Allergies No known active allergies Medications omeprazole (PRILOSEC) 40 MG capsuleIndications :Gastroesophageal reflux disease without esophagitis Take 1 capsule (40 mg) by mouth daily Take 30-60 minutes before a meal. 90 capsule 1 5 Active citalopram (CELEXA) 20 MG tabletIndications: Anxiety, generalized Take 1 tablet (20 mg) by mouth daily 90 tablet 1 6 Active LUTERA 0.1-20 MG-MCG per tabletIndications: General counseling and advice on contraceptive management TAKE 1 TABLET BY MOUTH DAILY 28 tablet 7 Active cyclobenzaprine (FLEXERIL) 10 MG tabletIndications: Strain of neck muscle, initial encounter Take 1 tablet (10 mg) by mouth 3 times daily as needed for muscle spasms TAKE 1 TABLET(10 MG) BY MOUTH THREE TIMES DAILY NEEDED FOR MUSCLE SPASMS 30 tablet 2 Active Active Problems Problem Noted Date Diagnosed Date S/P appendectomy 12/03/2019 Major depressive disorder, r ecurrent episode, moderate degree 09/19/2017 ALANNA (generalized anxiety disorder) 09/19/2017 GERD (gastroesophageal reflux disease) 3 Intractable migraine 08/24/2012 ADD (attention deficit disorder) 05/27/2010 Resolved Problems Problem Noted Date Diagnosed Date Resolved Date Indication for care in labor or delivery 09/12/2015 10/26/2021 09/12/2015 10/26/2021 Supervision of other normal , antepartum, third trimester 08/01/2015 10/26/2021 Low maternal weight gain, third trimester 08/01/2015 10/26/2021 Abnormal test 07/18/2015 05/0 02/2022 Supervision of other normal , first trimester 03/27/2015 03/27/2015 Supervision of other normal , first trimester 03/27/2015 10/26/2021 Overview (07/18/2015): OB Notes-wants tubal if needs c/s GIRL!(Lira) Verifi-(+)Trisomy 13 screen; amnio wnl and no trisomy detected; Level II WNL and anterior placenta -Rashad OB History- x2 Tabitha 6-7# PROM @38-39 weeks and needed pitocin augmentation Marvel -15# elective indux @ 39 weeks Flu shot 03-24-15 GCT/OBHGB = passed 100/11.3 gave iron info Vacuum extraction, delivered , current hospitalization 10/26/2013 03/27/2015 Overview (04/21/2015): Diagnosis updated by automated process. Provider to review and confirm. 10/24/2013 03/27/2015 Immunizations Name Administration Dates Next Due DTAP (<7y) 10/06/1992, 9,1987,1987,1987 HIB, Unspecified 11/26/1988, 8,1987,1987 Hepatitis B, Adult 10/10/2000 Hepatitis B, Peds 10/10/2000,02/08/2000,01/07/20 00 Influenza (High Dose) Trival ent,PF (Fluzone) 03/24/2015,03/28/2013 Influenza (IIV3) PF 03/24/2015,03/28/2013 Influenza (prior to 2023) 03/28/2013 Influenza Vaccine >6 months,quad, PF 10/2018,02/22/2018,03/29/2017,2015,03/24/2015 MMR 01/07/2000,07/21/1988 Pneumococcal 23 valent 12/31/2019 Polio, Unspecified 10/06/1992, 9,1987,1987 Poliovirus, inactivated (IPV) 10/06/1992 ,11/26/1988,1987,1987 TDAP (Adacel,Boostrix) 08/08/2013,08/11/2010 TDAP Vaccine (Adacel) 07/18/2015 Td (Adult), Adsorbed 01/07/2000 Family History Medical History Relation Comments Breast Cancer Maternal Grandmother Hypertension Paternal Grandfather Relation Status Comments Maternal Grandmother Paternal Grandfather Social History Tobacco Use Types Packs/Day Years Used Date Smoking Tobacco: Every Day Cigarettes Smokeless Tobacco: Never Tobacco Cessation:Counseling Given: No Alcohol Use Standard Drinks/Week Comments Yes 0 (1 standard drink = 0.6 oz pur e alcohol) PHQ-2 Answer Date Recorded PHQ-2 Score 4 10/26/2021 Adolescent Education Answer Date Record ed Getting School Help Needed Not on file 04/03 Comments Unknown Sex and Gender Information Value Date Recorded Sex Assigned at Not on file Legal Sex Female 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 Gender Identity Not on file Sexual Orientation Not on file 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 file Not on file Last Filed Vital Signs Vital Sign Reading Time Taken Comments Blood Pressure 114/73 10/26/2021 12:57 PM CDT Pulse 91 10/26/2021 12:57 PM CDT Temperature 36.8 C (98.2 F) 10/26/2021 12:57 PM CDT Respiratory Rate 20 10/26/2021 12:57 PM CDT Oxygen Saturation 100% 10/26/2021 12:57 PM CDT Inhaled Oxygen Concentration - - Weight 60.8 kg (134 lb) 10/26/2021 12:57 PM CDT Height 160 cm (5' 3) 10/26/2021 12:57 PM CDT Body Mass Index 23.74 10/26/2021 12:57 PM CDT Plan of Treatment Upcoming Encounters Date Type Department Care Team (Late st Contact Info) Description 09/13/2024 11:00 AM CDT Office Visit [facility] [place] [address] [facility] [address] [place] [phone] Davina Obrien MD [address] , [facility] [address] [place] [address] Health Maintenance Due Date Last Done Comments ADVANCE CARE PLANNING 1987 DEPRESSION ACTION PLAN 1987 GLUCOSE 1987 YEARLY PREVENTIVE VISIT 1990 HEPATITIS C SCREENING 2005 PAP 12/05/2016 12/05/2013 Pneumococcal Vaccine: Pediatrics (0 to 5 Years) and At-Risk Patients (6 to 49 Years) (2 of 2 - PCV) 12/30/2020 12/31/2019 PHQ-9 04/28/2022 10/26/2021, 05/0 02/2022, 01/15/2016, Additional history exists ANNUAL REVIEW OF HM ORDERS 10/26/2022 10/26/2021 COVID-19 Vaccine (2 - season) 2024 05/21/2021 INFLUENZA VACCINE (#1) 2024 9, 02/22/2018, 03/29/2017, Additional history exists DTAP/TDAP/TD IMMUNIZATION (9 - Td or Tdap) 07/18/2025 07/18/2015, 08/08/2013, 08/11/2010, Additional history exists ZOSTER IMMUNIZATION (1 of 2) 2037 RSV VACCINE (1 - 1-dose 75+ series) 2062 HEPATITIS B IMMUNIZATION Completed 001, 10/10/2000, 02/08/2000, Additional history exists HIV SCREENING Completed 03/24/2015, 03/28/2013 HPV IMMUNIZATION Aged Out No longer e ligible based on patient's age to complete this topic MENINGITIS IMMUNIZATION Aged Out No l onger eligible based on patient's age to complete this topic RSV MONOCLONAL ANTIBODY Aged Out No l onger eligible based on patient's age to complete this topic Procedures Procedure Name Priority Date/Time Associated Diagnosis Comments HIV ANTIGEN ANTIBODY COMBO Routine 03/24/2015 3:43 PM CDT Supervision of other normal , first trimester ABSTRACT PAP (HIM EXTERNAL RESULT) Routine 12/05/2013 from Last 3 Months or Most Recently Relevant to Health Maintenance Results * HIV Antigen Antibody Combo (03/24/2015 3:43 PM CDT) HIV Antigen Antibody Combo Nonreactive HIV-1 p24 Ag & HIV-1/HIV-2 Ab Not Detected NR [facility] Blood specimen (specimen) 03/24/2015 3:43 PM CDT 03/24/2015 3:44 PM CDT us Narda Young MD LAB - BLOOD ORDERABLES Final Re sult [facility] [address] [place] [address] * ABSTRACT PAP-NO CHARGE (12/05/2013) 12/05/2013 Narrative EXTERNAL LAB - 12/05/2013 PAP SMEAR - CHRIS RANDOLPH us Provider Outside LAB - HIM EXTERNAL RESULT Final Result EXTERNAL LAB External Lab from Last 3 Months or Most Recently Relevant to Health Maintenance Insurance none (Work) [address] [place] [id number] [place] [facility] Care Teams Bending Shed Worker Relationship Specialty Start Date End Date [facility] [address] [place] [address] PCP - General Internal Medicine 10/26/21 Narda Young MD [address] [place] [address] [place] [address] borematic machine operator 09/22/21 Amauri Collins MD [address] [place] [address] Assigned PCP 09/03/21 Davina Obrien MD [address], [facility] 100 [place] [address] Physician borematic machine operator 07/10/24
--- OUTSIDE RECORDS SUMMARY | 2024-07-14 13:47 | XMS_ITS | Encounter Summary ---
Author Organization [place] Address [address] [place] [address] Care Team Providers Care Wheel Of Fortune Dealer Name Role Phone Narda oYung MD Unavailable [phone] Amauri Collins MD Unavailable [facility] Primary Care Provider Davina Obrien MD Unavailable [phone] Reason for Visit * Reason Onset Date Comments Refill Request 11/20/2021 Encounter Details Date Type Department Care Team (Late st Contact Info) Description 11/20/2021 MyC Refill [facility] [address] [place] [phone] Amauri Collins MD [address] [place] [address] Refill Request Social History Tobacco Use Types Packs/Day Years Used Date Smoking Tobacco: Every Day Cigarettes Smokeless Tobacco: Never Alcohol Use Standard Drinks/Week Comments Yes 0 (1 standard drink = 0.6 oz pur e alcohol) PHQ-2 Answer Date Recorded PHQ-2 Score 4 10/26/2021 Comments Unknown Sex and Gender Information Value Date Recorded Sex Assigned at Not on file 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 No / Unsure 10/26/2021 12:30 PM CDT documented as of this encounter Miscellaneous Notes * Telephone Encounter - Wanda Rosas RN - 11/20/2021 2:06 PM CDT Routing refill request to provider for review/approval because: Drug not on the [facility] refill protocol documented in this encounter Plan of Treatment Upcoming Encounters Date Type Department Care Team (Late st Contact Info) Description 09/13/2024 11:00 AM CDT Office Visit [facility] [address] [phone] Davina Obrien MD [address] [address] documented as of this encounter Visit Diagnoses Diagnosis Attention deficit disorder, unspecified hyperactivity presence Strain of neck muscle, initial encounter documented in this encounter Additional Health Concerns Assessment Noted Time PHQ-9 Depression Total Score: 17 022 7:03 AM CDT documented as of this encounter Care Teams Wheel Of Fortune Dealer Relationship Specialty Start Date End Date Clinic - [facility] [address] [place] [address] PCP - General Internal Medicine 10/26/21 Narda Young MD [address] [address] physician relations representative 09/22/21 Amauri Collins MD [address] [place] [id number] Assigned PCP 09/03/21 Davina Obrien MD [address], [facility] [address] [place] [address] Physician physician relations representative 07/10/24 documented as of this encounter
--- OUTSIDE RECORDS SUMMARY | 2024-07-14 13:47 | XMS_ITS | Encounter Summary ---
Author Organization [place] Address [address] [place] [address] Care Team Providers Care It Engineer Name Role Phone Narda Young MD Unavailable [phone] Amauri Collins MD Unavailable [facility] Primary Care Provider Davina Obrien MD Unavailable [phone] Reason for Visit * Reason Onset Date Comments Refill Request 03/10/2022 Encounter Details Date Type Department Care Team (Late st Contact Info) Description 03/10/2022 MyC Refill [facility] [address] [place] [phone] Amauri Collins MD [address] [place] [address] Refill Request Social History Tobacco [...] on file 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 It would be unethical and inappropriate for me to continue to prescribe stimulant medications for her. * Telephone Encounter - Wanda Rosas, RN - 03/11/2022 5:45 PM CDT Routing refill request to provider for review/approval because: Drug not on the [facility] refill protocol documented in this encounter Plan of Treatment Upcoming Encounters Date Type Department Care Team (Late st Contact Info) Description 09/13/2024 11:00 AM CDT Office Visit [facility] [address] [place] [phone] Davina Obrien MD [address] [address] documented as of this encounter Visit Diagnoses Diagnosis Attention deficit disorder, unspecified hyperactivity presence documented in this encounter Additional Health Concerns Assessment Noted Time PHQ-9 Depression Total Score: 17 022 7:03 AM CDT documented as of this encounter Care Teams It Engineer Relationship Specialty Start Date End Date Clinic - [address] [address] PCP - General Internal Medicine 10/26/21 Narda Young MD [address] [address] retail planner 09/22/21 Amauri Collins MD [address] [place] [address] Assigned PCP 09/03/21 Davina Obrien MD [address], [place] [address] [place] [address] Physician retail planner 07/10/24 documented as of this encounter
--- OUTSIDE RECORDS SUMMARY | 2024-07-14 13:47 | XMS_ITS | Referral Summary ---
Author Organization [place] Address [address] [place] [address] Care Team Providers Care Pipe Buffer Name Role Phone Narda Young MD Unavailable [phone] Amauri Collins MD Unavailable [phone] [facility] Primary Care Provider Davina Obrien MD Unavailable [phone] Allergies No known active allergies Medications [...] Vaccine (Adacel) 07/18/2015 Td (Adult), Adsorbed 01/07/2000 Social History Tobacco Use Types Packs/Day Years [...] on file Legal Sex Female 3:15 AM SKEIN DYER Gender Identity Not on file Sexual Orientation Not on file 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 Not on file Not [...] Description 09/13/2024 11:00 AM CDT Office Visit [facility] [place] [address] [facility] [address] [place] [phone] Davina Obrien MD [address] [facility] [place] [address] [place] [address] Procedures Procedure Name Priority Date/Time Associated Diagnosis [...] Ag & HIV-1/HIV-2 Ab Not Detected NR [facility] Blood specimen (specimen) 03/24/2015 3:43 PM CDT 03/24/2015 3:44 PM CDT us Narda Young MD LAB - BLOOD ORDERABLES Final Re sult [facility] [address] [place] [address] * ABSTRACT PAP-NO CHARGE (12/05/2013) 12/05/2013 Narrative EXTERNAL LAB - 12/05/2013 PAP SMEAR - CHRIS RANDOLPH us Provider Outside LAB - HIM EXTERNAL RESULT Final Result EXTERNAL LAB External Lab from Last 3 Months or Most Recently Relevant to Health Maintenance Insurance none (Work) [address] [facility] [place] [id number] [facility] Care Teams Pipe Buffer Relationship Specialty Start Date End Date [facility] - [address] [address] PCP - General Internal Medicine 10/26/21 Narda Young MD [address] [facility] [address] [place] [address] pediatric nephrologist 09/22/21 Amauri Collins MD [address] [place] [address] Assigned PCP 09/03/21 Davina Obrien MD [address], [facility] [address] [place] [address] Physician pediatric nephrologist 07/10/24
--- OUTSIDE RECORDS SUMMARY | 2024-07-14 13:47 | XMS_ITS | Clinical Summary ---
Author Organization [facility] Address [address] [place] [address] Care Team Providers Care Pipe Or Steam Fitter Furnace Installer Name Role Phone Rafal Curiel MD Primary Care Provider [phone] Source Comments You are receiving this document as you are listed as the primary care provider,follow-up provider, or the patient has been referred to you for consultation.This is in compliance with the Medicare and[facility] EHR Incentive Program,which states Providers who transition their patient to another setting of careor provider of care or refers their patient to another provider of care shouldprovide summary care record for each transition of care or referral. [employer] Allergies No known active allergies Medications Medication Sig Dispensed Refills Start Date End Date Status amphetamine-dextr oamphetamine (ADDERALL) 30 MG tablet 11/08/2018 Active omeprazole (PRILOSEC) 40 MG capsuleIndication s:Gastroesophagea l reflux disease with esophagitis without hemorrhage Take 1 Capsule (40 mg) by mouth daily. Take 1 hour before a meal. 90 Capsule 1 09/16/2021 Active eszopiclone (LUNESTA) 3 MG tabletIndications :Insomnia, unspecified type Take 1 Tablet (3 mg) by mouth at bedtime as needed. 30 Tablet 09/16/2021 Active busPIRone (BUSPAR) 5 MG tabletIndications :Panic disorder with agoraphobia (HRC) Take 1 Tablet by mouth two times a day. 60 Tablet 3 04/25/2020 05/22/2020 Discontinued Active Problems Problem Noted Date Diagnosed Date History of bilateral breast implants 09/18/2021 S/P appendectomy 12/03/2019 Primary insomnia 10/31/2017 Panic disorder with agoraphobia 09/19/2017 Post traumatic stress disorder 09/19/2017 Major depressive disorder, r ecurrent episode, moderate degree 09/19/2017 ALANNA (generalized anxiety disorder) 09/19/2017 GERD (gastroesophageal reflux disease) 8 ADD (attention deficit disorder) 05/04/2017 Intractable migraine 08/24/2012 Resolved Problems Problem Noted Date Diagnosed Date Resolved Date ADHD (attention deficit hype ractivity disorder), predominantly hyperactive impulsive type 09/19/2017 12/31/2019 Anxiety 05/04/2017 12/31/2019 Immunizations Name Administration Dates Next Due DTaP 10/06/1992, 9,1987,1987,1987 Flu Vac (3+ yrs) 03/24/2015 Flu Vac Preserv Free (3+yrs) 03/28/2013 HepB Adult (Engerix-B, 20+ y rs, 3 dose series) 10/10/2000 HepB Ped/Adol (0-18 yrs) 10/10/2000,02/08/2000,0 01/07/2000 Hib, Unspecified Formulation 11/26/1988, 1987,1987,1987 IPV (Polio) 10/06/1992, 9,1987,1987 Influenza IIV3 (Trivalent) F luzone Highdose, 65+ Yrs (70104) 03/24/2015,03/28/2013 Influenza IIV4 (Quadrivalent ) 0.5mL (84486) 05/24/2019,02/22/2018,03/29/2017,2015,03/24/2015 MMR 01/07/2000,07/21/1988 Moderna Monovalent 12+ 05/21/2021 PPSV23 (Pneumovax) 12/31/2019 Polio, Unspecified Formulation 3,11/26/1988,1987,1987 Td 01/07/2000 Tdap 07/18/2015, 6,12/02/2014,2013,08/11/2010 Family History Medical History Relation Name Comments Cancer Maternal Grandmother breast Vision Loss Maternal Grandmother blind Alcohol Abuse Paternal Aunt Cancer Paternal Aunt breast Stroke Paternal Grandfather Miscarriages / Stillbirths Paternal Grandmother stillborn Relation Name Status Comments Father Alive Mother Alive Maternal Grandfather Maternal Grandmother Alive Paternal Aunt Paternal Grandfather Paternal Grandmother Social History Tobacco Use Types Packs/Day Years Used Date Smoking Tobacco: Every Day Cigarettes Smokeless Tobacco: Never Tobacco Cessation:Ready to Q uit: No; Counseling Given: Yes Comments: Alcohol Use Standard Drinks/Week Comments Yes 0 (1 standard drink = 0.6 oz pur e alcohol) occ PHQ-2 Answer Date Recorded PHQ-2 Score 4 09/07/2021 Sex and Gender Information Value Date Recorded Sex Assigned at Not on file Gender Identity Not on file Sexual Orientation Not on file Last Filed Vital Signs Vital Sign Reading Time Taken Comments Blood Pressure 140/88 09/16/2021 1:11 PM CDT Pulse 99 09/16/2021 1:11 PM CDT Temperature 36.9 C (98.4 F) 09/07/2021 12:04 PM CDT Respiratory Rate 16 09/16/2021 1:11 PM CDT Oxygen Saturation 99% 05/22/2018 1:14 PM BARBER STYLIST Inhaled Oxygen Concentration - - Weight 61.2 kg (135 lb) 09/16/2021 1:11 PM CDT Height 160 cm (5' 3) 09/16/2021 1:11 PM CDT Body Mass Index 23.91 09/16/2021 1:11 PM CDT Plan of Treatment Health Maintenance Due Date Last Done Comments Hep C Screening (Preventive Services) 1987 Adult Preventive Visit 2005 Cervical Cancer Screening 12/17/2018 12/18/2015 (Com pleted) Pneumococcal (2 - PCV) 12/30/2020 12/31/2019 COVID-19 Vaccine ( season) 2024 05/21/2021 Influenza (#1) 2024 05/24/2019, 10/2017, 03/29/2017, Additional history exists DTaP/Tdap/Td (11 - Tdap) 07/18/2025 016, 07/18/2015, 12/02/2014, Additional history exists Zoster/Shingles (1 of 2) 2037 Hib Completed 11/26/1988, 10/18, 1987, Additional history exists IPV (Polio) Completed 10/06/1992, 09/18, 11/26/1988, Additional history exists HepB Completed 10/10/2000, 09/19, 02/08/2000, Additional history exists HIV Screening (Preventive Services) Completed 12/31/2019 HPV Vaccine Aged Out No longer eligi ble based on patient's age to complete this topic HepA Aged Out No longer eligi ble based on patient's age to complete this topic MCV4 Aged Out No longer eligi ble based on patient's age to complete this topic Procedures Procedure Name Priority Date/Time Associated Diagnosis Comments HIV 1/2 AG/AB 4TH GEN Routine 12/31/2019 4:02 PM CDT Screening for HIV (human immunodeficiency virus) from Last 3 Months or Most Recently Relevant to Health Maintenance Results * HIV 1/2 Ag/Ab 4th Generation (12/31/2019 4:02 PM CDT) HIV 1/2 Antigen/Antib alka (4th generation) Negative (Non Reactive) Negative (Non Reactive) 12/31/2019 9:43 PM CDT [facility] Comment:HIV-1 p24 Antigen an d HIV-1/HIV-2 Antibody not detected Blood Venipuncture / Unknown 12/31/2019 4:02 PM CDT 12/31/2019 4:02 PM CDT Rafal Curiel MD LAB_1 [facility] [address] from Last 3 Months or Most Recently Relevant to Health Maintenance Care Teams Pipe Or Steam Fitter Furnace Installer Relationship Specialty [place] [address] [place] [address] PCP - General Family Practice 05/03/17
--- OUTSIDE RECORDS SUMMARY | 2024-07-14 13:47 | XMS_ITS | Encounter Summary ---
Author Organization [facility] Address [address] [place] [address]. [place] [address] Care Team Providers Care Taper/Finisher Name Role Phone Narda Young MD Unavailable [phone] Amauri Collins MD Unavailable [facility] Primary Care Provider Davina Obrien MD Unavailable [phone] Encounter Details Date Type Department Care Team (Late st Contact Info) Description 02/05/2022 MyC Medical Advice [facility] [address] [place] [address] Amauri Collins MD [address] [place] [address] Social History Tobacco Use Types Packs/Day Years Used Date Smoking Tobacco: Every Day Cigarettes Smokeless Tobacco: Never Alcohol Use Standard Drinks/Week Comments Yes 0 (1 standard drink = 0.6 oz pur e alcohol) PHQ-2 Answer Date Recorded PHQ-2 Score 4 10/26/2021 Comments Unknown Sex and Gender Information Value Date Recorded Sex Assigned at Not on file Legal Sex Female 3:15 AM CROP ADJUSTER Gender Identity Not on file Sexual Orientation Not on file 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 Not on file Not on file documented as of this encounter Plan of Treatment Upcoming Encounters Date Type Department Care Team (Late st Contact Info) Description 09/13/2024 11:00 AM CDT Office Visit [facility] [place] [address] [facility] [address] [place] [phone] Davina Obrien MD [address], [place] [address] [place] [address] documented as of this encounter Visit Diagnoses Not on filedocumented in this encounter Additional Health Concerns Assessment Noted Time PHQ-9 Depression Total Score: 17 022 7:03 AM CDT documented as of this encounter Care Teams Taper/Finisher Relationship Specialty Start Date End Date Clinic - [facility] [address] [place] [address] PCP - General Internal Medicine 10/26/21 Narda Young MD [address] [facility] [address] director [employer] retail 09/22/21 Amauri Collins MD [address] [place] [address] Assigned PCP 09/03/21 Davina Obrien MD [address], [facility] [place] [address] Physician director [employer] 07/10/24 documented as of this encounter
--- OUTSIDE RECORDS SUMMARY | 2024-07-14 13:47 | XMS_ITS | Continuity of Care Document ---
Author Organization [facility] Address [address] [address] [place] [address] Phone Care Team Providers Care Manager Technology Name Role Phone Gómez Cotton MD Unavailable Unavailable Allergies, Adverse Reactions, Alerts Substance Reaction Status Criticality No Known allergies Medications Medication Instructions Dosage Effective Dates (start - stop) Status Comments omeprazole 20 mg capsule,delayed release take 1 by Oral route every day 1 - Active Procedures Procedure Date Offic Cons New/estab Mod Routine Serum Collection Comp Metabolic Panel Results Test Name Date and Time Measure Units Reference Range Abnormal Flag Status Comments Panel Description: Thyroid Frazer Profile Za l TSH 15:49:23 0.761 UIU/ML 0.450-4.500 Final Panel Description: Comp. Metabolic Panel (14) F inal Glucose, Serum 15:49:23 90 mg/dl 74-100 Final BUN 15:49:23 9 mg/dl 5-22 Final Creatinine, Serum 13 15:49:23 0.70 mg/dl 0.60-1.30 Final BUN/Creatinine Ratio 15:49:23 12.86 10.00-20.00 Final Sodium, Serum 13 15:49:23 138 mmol/L 136-145 Final Potassium, Serum 13 15:49:23 3.7 mmol/L 3.5-5.1 Final Chloride, Serum 15:49:23 99 mmol/L 98-107 Final Carbon Dioxide, Total 13 15:49:23 29 mmol/L 21-32 Final Calcium, Serum 15:49:23 8.9 mg/dl 8.5-10.1 Final Protein, Total, Serum 15:49:23 7.6 g/dL 6.4-8.2 Final Albumin, Serum 13 15:49:23 4.4 g/dl 3.4-5.0 Final A/G Ratio 15:49:23 1.38 1.00-2.00 Final Bilirubin, Total 15:49:23 0.3 mg/dl 0.1-1.2 Final AST (SGOT) 15:49:23 21 U/L 15-37 Final ALT (SGPT) 15:49:23 35 U/L 30-65 Final Alkaline Phosphatase, Serum 15:49:23 78 U/L 50-136 Final eGFR If Africn Am 13 15:49:23 > 60 > 60 Final This calculation is for [facility] patients eGFR If NonAfricn Am 13 15:49:23 > 60 > 60 Final This calculation is for Non [place] patients ANGAP 15:49:23 13.90 5.00-18.00 Final Advance Directives Directive Yes / No Effective Date File Name Resuscitation Not Answered N/A N/A Life Support Not Answered N/A N/A Intubation Not Answered N/A N/A Antibiotics Not Answered N/A N/A IV Fluid Support Not Answered N/A N/A Tube Feed Not Answered N/A N/A Other Directive N/A N/A WARNING:The information contained in this section is historical and is provided for information only and does not constitute a legal document or any assurance that the information is still accurate. Please verify the information with the agarwal of the legal document before using it for clinical purposes. Encounters Encounter Description Practice Location Reason(s) For Visit Diagnoses Date Provider Providers Copied on Encounter Offic Cons New/estab Mod [facility], [address] [address], [place], [place], [id number], [place] tel:[phone] [facility] Abdominal pain (chief complaint) Change In Bowel Habits Yury Magaña. [address] [facility], [place], [place], [id number] , [place]. tel:[phone] Referring Provider: Andrea Sousa, [address] [facility], [place], [address]. tel:[phone] Family History Family Member Type Diagnosis Age At Onset First degree family history Problem (finding) No Family history of No history of Colon Polyps First degree family history Problem (finding) No history of Ulcerative Colitis First degree family history Problem (finding) No history of Crohn's First degree family history Problem (finding) No history of Cancer, colon First degree family history Problem (finding) celiac disease Payers Payer name Insurance type Covered libertarian ID Authorpravina ajaygertrudis(s) [facility] [id number] Social History Type Description Quantity Date Captured Comments Alcohol Use Details Caffeine Use Details Unknown Tobacco Use Status No Information Smoking Status No Information Sex Female Chief Complaint And Reason For Visit From encounter dated '08/29/2012 15:30'. Abdominal pain (chief complaint) Reason For Referral Reason For Referral No Information History Of Present Illness Encounter Date Complaint History Of Prese nt Illness No Information Functional Status Date Functional Assessmen t No Information Instructions Date Instruction Additional Infor mation No Information Assessments Type Assessment Date No Information Patient Care Teams Name Effective Dates (start - stop) Status Members No Information
--- OUTSIDE RECORDS SUMMARY | 2024-07-14 13:47 | XMS_ITS | Encounter Summary ---
Author Organization [facility] Address [address] [place] [address] Care Team Providers Care Waiter/Waitress Name Role Phone No Ref-Primary, Physician Primary Care Provider Narad Young MD Unavailable [phone] Amauri Collins MD Unavailable [phone] [facility] Primary Care Provider Davina Obrien MD Unavailable [phone] Reason for Visit * Reason Onset Date Comments Refill Request 10/21/2021 Encounter Details Date Type Department Care Team (Late st Contact Info) Description 10/21/2021 MyC Refill [facility] [address] [place] [phone] Amauri Collins MD [address] [place], [place] [address] Refill Request Social History Tobacco Use Types Packs/Day Years Used Date Smoking Tobacco: Every Day Cigarettes Smokeless Tobacco: Never Alcohol Use Standard Drinks/Week Comments Yes 0 (1 standard drink = 0.6 oz pur e alcohol) Comments No Sex and Gender Information Value Date Recorded Sex Assigned at Not on file Legal Sex Female 3:15 AM 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 No / Unsure 09/25/2021 1:06 PM CDT documented as of this encounter Miscellaneous Notes * Telephone Encounter - Wanda Rosas, RN - 10/23/2021 12:42 PM CDT Medication refused, duplicate. Refused Prescriptions: Disp Refills cyclobenzaprine (FLEXERIL) 10 MG tablet 30 tab*0 Sig: Take 1 tablet (10 mg) by mouth 3 times daily as needed for muscle spasms documented in this encounter Plan of Treatment Upcoming Encounters Date Type Department Care Team (Late st Contact Info) Description 09/13/2024 11:00 AM CDT Office Visit [facility] [address] [place] [address] [address] [phone] Davina Obrien MD [address] [facility] [address] [place] [id number] documented as of this encounter Visit Diagnoses Diagnosis Strain of neck muscle, initial encounter documented in this encounter Additional Health Concerns Assessment Noted Time PHQ-9 Depression Total Score: 6 01/16/20 16 7:13 AM CDT documented as of this encounter Care Teams Waiter/Waitress Relationship Specialty Start Date End Date No Ref-Primary, Physician PCP - General 09/22/21 10/25/[address] [address] PCP - General Internal Medicine 10/26/21 Narda Young MD [address] [facility] [address] [place] [address] fast food team member 09/22/21 Amauri Collins MD [address] [place] [address] Assigned PCP 09/03/21 Davina Obrien MD [address], [facility] [address] [place] [address] Physician fast food team member 07/10/24 documented as of this encounter
--- OUTSIDE RECORDS SUMMARY | 2024-07-14 13:47 | XMS_ITS | Encounter Summary ---
Author Organization [facility] Address [address] [place] [address]. [place] [address] Care Team Providers Care Lead Maintenance Technician Name Role Phone Narda Young MD Unavailable [phone] Amauri Collins MD Unavailable [phone] [facility] [place] Primary Care Provider Davina Obrien MD Unavailable [phone] Reason for Visit * Reason Onset Date Comments MyChart Communication 02/05/2022 Encounter Details Date Type Department Care Team (Latest Contact Info) Description 02/05/2022 MyC Medical Advice [facility] [address] [address] Narda Young MD [address] [place] [id number] MyChart Communication Social History Tobacco Use Types Packs/Day Years Used Date Smoking Tobacco: Every Day Cigarettes Smokeless Tobacco: Never Alcohol Use Standard Drinks/Week Comments Yes 0 (1 standard drink = 0.6 oz pur e alcohol) PHQ-2 Answer Date Recorded PHQ-2 Score 4 10/26/2021 Comments Unknown Sex and Gender Information Value Date Recorded Sex Assigned at Not on file Legal Sex Female 3:15 AM SYSTEMS LIBRARIAN Gender Identity Not on file Sexual Orientation Not on file 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 Not on file documented as of this encounter Plan of Treatment Upcoming Encounters Date Type Department Care Team (Late st Contact Info) Description 09/13/2024 11:00 AM CDT Office Visit [facility] [place] [address] [facility] [address] [place] [phone] Davina Obrien MD [address], [facility] [address] [place] [address] documented as of this encounter Visit Diagnoses Not on filedocumented in this encounter Additional Health Concerns Assessment Noted Time PHQ-9 Depression Total Score: 17 022 7:03 AM CDT documented as of this encounter Care Teams Lead Maintenance Technician Relationship Specialty Start Date End Date Clinic - [facility] [address] [place] [address] PCP - General Internal Medicine 10/26/21 Narda Young MD [address] [facility] [address] [place] [address] labor service representative 09/22/21 Amauri Collins MD [address] [place] [address] Assigned PCP 09/03/21 Davina Obrien MD [address], [facility] [address] [place] [address] Physician labor service representative 07/10/24 documented as of this encounter
[2024-07-14 14:21] VITALS: BP 126/79; PULSE 84; RESP 16; TEMP 37.3; O2SAT 100; BMI 23.9
--- NOTE | 2024-07-14 14:44 | CRLHL7_ITS ---
For Patients: As a result of the Century Cures Act, medical imaging exams and procedure reports are released immediately into your electronic medical record. You may view this report before your referring provider. If you have questions, please contact your health care provider. INDICATION: Bleeding and cramping TECHNIQUE: Ultrasound pelvis transvaginal for better assessment or to better visualize the endometrium. Real-time sonographic images with spectral and color Doppler imaging of the ovaries were obtained. COMPARISON: Pelvic ultrasound 08/11/2023 FINDINGS: Uterus: 8.1 x 3.9 x 5 cm. Normal echotexture of the myometrium. No masses. Endometrium: Transvaginal imaging was performed to better evaluate the endometrium. Endometrial thickness measures 10 mm. New tiny 3 mm endometrial cyst Status post right oophorectomy. Left ovary measures 3.4 x 1.9 x 2.1 cm. No ovarian or adnexal masses. Normal arterial and venous blood flow is demonstrated in the left ovary. Cul-de-sac: Trace amount of free fluid. IMPRESSION: 1. Status post right oophorectomy. The left ovary is unremarkable. 2. New tiny 3 mm endometrial cyst is nonspecific. Please correlate with beta HCG levels to exclude possible early . Dictated by Penny Damian MD @ 07/14/2024 5:54:41 PM (Electronically Signed)
--- NOTE | 2024-07-14 14:47 | ED.FEMALEGU ---
HPI - Female Genitourinary General Chief complaint: Vaginal Bleeding Stated complaint: Sharp pain, bleeding 3 weeks Time Seen by Provider: 07/14/24 14:15 History of Present Illness HPI Narrative: This 39-year-old female comes in reporting vaginal bleeding over the past 3 or 4 weeks. She also has some crampy abdominal pain. She did call into the OBGYN clinic and was prescribed a medicine which she took for 14 days. During this time she did not have any bleeding but continued to have abdominal cramping. After discontinuing the medication her bleeding resumed. She does report some lightheadedness at times. Related Data Previous Rx's ?Medication ?Instructions ?Recorded drospirenone 3 mg-ethinyl 1 tab PO QDAY #84 tabs 10/17/23 estradiol 0.02 mg tablet (ERNESTO (28)) norethindrone acetate 5 mg tablet 5 mg PO TID #40 tabs 06/28/24 norethindrone acetate 5 mg tablet 5 mg PO TID #20 tabs 07/14/24 Allergies Allergy/AdvReac Type Severity Reaction Status Date / Time No Known Drug Allergies Allergy Verified 10/12/23 10:06 Review of Systems Status of ROS: Reports: 10 or more systems reviewed and unremarkable except as noted in History and below Narrative: Constitutional: No fevers, no weight gain or loss. Eyes: No discharge. No vision changes. HENT: No congestion, no sore throat, no ear pain. Cardiovascular: No chest pain, no palpitations. Respiratory: No shortness of breath, no wheezes, no cough. Gastrointestinal: No vomiting, no diarrhea. Crampy lower abdominal pain. Genitourinary: No dysuria, no hematuria. Musculoskeletal: Normal range of motion. Skin: No rashes, no pruritis. Neurological: No dizziness, weakness, sensory change, speech change. Endo/Heme/Allergies: No bruising or bleeding. No polydipsia. Pysch: no suicidality, no anxiety, no insomnia. All other systems reviewed and are negative. [facility] Medical History (Updated 07/14/24 @ 16:13 by Tommy Moore MD) History of pyelonephritis (04/08/23) ?Z87.448 - Personal history of other diseases of urinary system (ICD-10) Hemoperitoneum ?K66.1 - Hemoperitoneum (ICD-10) Ovarian hemorrhage ?N83.8 - Other noninflammatory disorders of ovary, fallopian tube and broad ligament (ICD-10) Surgical History (Updated 10/12/23 @ 10:35 by Kristina Collado) History of right salpingo-oophorectomy (02/28/22) ?Z90.79 - Acquired absence of other genital organ(s) (ICD-10) ?Z90.721 - Acquired absence of ovaries, unilateral (ICD-10) H/O bilateral breast implants (2015) ?Z98.82 - Breast implant status (ICD-10) History of appendectomy (12/03/19) ?Z90.49 - Acquired absence of other specified parts of digestive tract (ICD-10) H/O wisdom tooth extraction ?K08.409 - Partial loss of teeth, unspecified cause, unspecified class (ICD-10) Family History (Updated 10/12/23 @ 10:10 by Kristina Collado) Other Breast cancer Social History Smoking Status: Current every day smoker What tobacco products do you use: cigarettes Do you use any of these nicotine containing products: None Second hand tobacco smoke exposure: No How often do you have a drink containing alcohol: never How often do you have six or more drinks on one occasion: Never AUDIT-C Alcohol total score: 0 Non-prescribed substance use: denies use service: No Exam Narrative: Exam Narrative: Constitutional: Well-developed, well-nourished, no acute distress. HEENT: Normocephalic, atraumatic. Neck: Normal range of motion. Nontender. Supple. Heart: Regular. No murmurs. Normal rate. Intact distal pulses. Lungs: Clear to auscultation. No chest discomfort. No wheezes, rhonchi, or rales. Abdomen: Normal bowel sounds. Left lower quadrant tenderness. No rebound tenderness. Genitalia: Deferred. Back: No midline tenderness. Normal range of motion. Extremities: Normal range of motion. No injury. Skin: Intact. No rash. Warm. No erythema or pallor. Neurologic: No altered sensation. No weakness. Alert and oriented. Psychiatric: No suicidality. No anxiety or depression. No insomnia. Nursing notes and vitals signs are reviewed. Const: Vital Signs, click to edit/add: Vital Signs - 24 hr 07/14/24 14:21 Temperature 99.2 F Pulse Rate [Pulse Oximeter] 84 Respiratory Rate 16 Blood Pressure [Ri ght Upper Arm] 126/79 Pulse Oximetry 100 Oxygen Delivery Me thod Room Air Course Vital Signs Vital signs: Initial Vital Signs Temperature 99.2 F 07/14/24 14:21 Temperature Source Temporal Artery Scan 07/14/24 14:21 Pulse Rate 84 07/14/24 14:21 Respiratory Rate 16 07/14/24 14:21 Blood Pressure 126/79 07/14/24 14:21 Blood Pressure Mean 94 07/14/24 14:21 Pulse Oximetry 100 07/14/24 14:21 Oxygen Delivery Method Room Air 07/14/24 14:21 Vital Signs Temperature 99.2 F 07/14/24 14:21 Pulse Rate 84 07/14/24 14:21 Respiratory Rate 16 07/14/24 14:21 Blood Pressure 126/79 07/14/24 14:21 Pulse Oximetry 100 07/14/24 14:21 Oxygen Delivery Method Room Air 07/14/24 14:21 Temperature 99.2 F 07/14/24 14:21 Pulse Rate 84 07/14/24 14:21 Respiratory Rate 16 07/14/24 14:21 Blood Pressure 126/79 07/14/24 14:21 Pulse Oximetry 100 07/14/24 14:21 Oxygen Delivery Method Room Air 07/14/24 14:21 MDM - Female Genitourinary MDM Narrative Medical decision making narrative: This patient comes in reporting vaginal bleeding and abdominal cramping as described above. An ultrasound is obtained and shows no acute findings to explain these symptoms. Her right ovary had been removed and her left ovary appears normal. Additionally her hemoglobin returns reassuring. I did connect with Dr. Amador in the OBGYN department who will make arrangements for the patient to be seen in the clinic. I did provide prescription for norethindrone and an Inst[employer] prescription for Toradol. Lab Data Labs: Lab Results 07/14/24 Range/Units 14:50 WBC 6.84 (4.50-11.00) K/uL RBC 3.96 L (4.00-5.20) m/uL Hgb 11.4 L (12.0-16.0) gm/dL Hct 35.2 (33.0-51.0) % MCV 89 (80-100) fL MCH 29 (26-34) pg MCHC 32 (32-36) gm/dL RDW Coeff of Antonieta 12.9 (11.5-15.5) % Plt Count 351 (140-440) K/uL Neut % (Auto) 48.5 (42.0-72.0) % Lymph % (Auto) 36.1 (20-44) % [place] % (Auto) 10.4 (0.0-11.0) % Eos % (Auto) 4.2 (0.0-7.0) % Baso % (Auto) 0.7 (0.0-3.0) % Neut # (Auto) 3.31 (1.7-7.0) K/uL Lymph # (Auto) 2.47 (0.90-2.90) K/uL [place] # (Auto) 0.70 (0.00-0.90) K/UL Eos # (Auto) 0.29 (0.00-0.50) K/uL Baso # (Auto) 0.05 (0.00-0.30) K/uL Abs Immat Gran (auto) 0.01 (0.00-0.30) K/uL Imm/Tot Granulo (auto) 0.1 % HCG, Qual Negative (Negative) Discharge Plan Discharge Clinical Impression: Dysfunctional uterine bleeding Patient Disposition: Home, Self-Care Condition: Stable Additional Instructions: Take medication as prescribed. Follow-up with OBGYN clinic. Return if worsening. Prescriptions: New norethindrone acetate 5 mg tablet 5 mg PO TID Qty: 20 2RF No Action drospirenone-ethinyl estradiol [ERNESTO (28)] 3-0.02 mg tablet 1 tab PO QDAY Qty: 84 4RF norethindrone acetate 5 mg tablet 5 mg PO TID Qty: 40 0RF Rx Instructions: Take 1 tablet PO TID until bleeding stops then take 1 tablet daily for 14 days. Follow Up/Referrals: Remberto Anderson MD [Primary Care Provider] - Stand Alone Forms: [employer] Info Instructions
--- OUTSIDE RECORDS SUMMARY | 2024-07-14 14:49 | XMS_ITS | Referral Summary ---
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 [place] [address] [facility] [address] [place] [phone] Davina Obrien MD [address] [facility] [place] [address] [place] [address] Procedures Procedure Name Priority Date/Time Associated Diagnosis [...] Ag & HIV-1/HIV-2 Ab Not Detected NR [facility] Blood specimen (specimen) 03/24/2015 3:43 PM CDT 03/24/2015 3:44 PM CDT us Narda Young MD LAB - BLOOD ORDERABLES Final Re sult [facility] [address] [place] [address] * ABSTRACT PAP-NO CHARGE (12/05/2013) 12/05/2013 Narrative EXTERNAL LAB - 12/05/2013 PAP SMEAR - CHRIS RANDOLPH us Provider Outside LAB - HIM EXTERNAL RESULT Final Result EXTERNAL LAB External Lab from Last 3 Months or Most Recently Relevant to Health Maintenance Insurance none (Work) [address] [facility] [place] [address] [facility] Care Teams Summer Intern Relationship Specialty Start Date End Date [facility] - [address] [address] PCP - General Internal Medicine 10/26/21 Narda Young MD [address] [facility] [address] [place] [address] escalation engineer 09/22/21 Amauri Collins MD [address] [place] [address] Assigned PCP 09/03/21 Davina Obrien MD [address], [facility] [address] [place] [address] Physician escalation engineer 07/10/24
--- OUTSIDE RECORDS SUMMARY | 2024-07-14 14:49 | XMS_ITS | Encounter Summary ---
Author Organization [facility] Address [address] [place] [address] Care Team Providers Care Automobile Bumper Straightener Name Role Phone Narda Young MD Unavailable [phone] Amauri Collins MD Unavailable 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 Not on file Not [...] Description 09/13/2024 11:00 AM CDT Office Visit [facility] [address] [place] [phone] Davina Obrien MD [address] [address] documented as of this encounter Visit Diagnoses Diagnosis Attention deficit disorder, unspecified hyperactivity presence documented in this encounter Additional Health Concerns Assessment Noted Time PHQ-9 Depression Total Score: 17 022 7:03 AM CDT documented as of this encounter Care Teams Automobile Bumper Straightener Relationship Specialty Start Date End Date Clinic - [address] [address] PCP - General Internal Medicine 10/26/21 Narda Young MD [address] [address] gas shovel operator 09/22/21 Amauri Collins MD [address] [place] [address] Assigned PCP 09/03/21 Davina Obrien MD [address], [place] [address] [place] [address] Physician gas shovel operator 07/10/24 documented as of this encounter
--- OUTSIDE RECORDS SUMMARY | 2024-07-14 14:49 | XMS_ITS | Clinical Summary ---
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 [address] [place] [address] Health Maintenance Due Date Last Done Comments [...] Ag & HIV-1/HIV-2 Ab Not Detected NR [facility] Blood specimen (specimen) 03/24/2015 3:43 PM CDT 03/24/2015 3:44 PM CDT us Narda Young MD LAB - BLOOD ORDERABLES Final Re sult [facility] [address] [place] [address] * ABSTRACT PAP-NO CHARGE (12/05/2013) 12/05/2013 Narrative EXTERNAL LAB - 12/05/2013 PAP SMEAR - CHRIS RANDOLPH us Provider Outside LAB - HIM EXTERNAL RESULT Final Result EXTERNAL LAB External Lab from Last 3 Months or Most Recently Relevant to Health Maintenance Insurance none (Work) [address] [facility] [place] [address] [place] [facility] Care Teams Supply Chain Technician Relationship Specialty Start Date End Date [facility] [address] [place] [address] PCP - General Internal Medicine 10/26/21 Narda Young MD [address] [place] [address] [place] [address] strapper operator 09/22/21 Amauri Collins MD [address] [place] [address] Assigned PCP 09/03/21 Davina Obrien MD [address], [facility] 100 [place] [address] Physician strapper operator 07/10/24
--- OUTSIDE RECORDS SUMMARY | 2024-07-14 14:50 | XMS_ITS | Clinical Summary ---
Author Organization [facility] Address [address] [place] [address] Care Team Providers Care Automotive Parts Interpreter Name Role Phone Rafal Curiel MD Primary Care Provider [phone] Source Comments You are receiving this document as you are listed as the primary care provider,follow-up provider, or the patient has been referred to you for consultation.This is in compliance with the Medicare and[facility] EHR Incentive Program,which states Providers who transition their patient to another setting of careor provider of care or refers their patient to another provider of care shouldprovide summary care record for each transition of care or referral. [employer] Allergies No known active allergies Medications Medication [...] IIV3 (Trivalent) F luzone Highdose, 65+ Yrs (96[address]) 03/24/2015,03/28/2013 Influenza IIV4 (Quadrivalent ) 0.5mL (35773) 05/24/2019,02/22/2018,03/29/2017,2015,03/24/2015 MMR 01/07/2000,07/21/1988 Moderna Monovalent 12+ 05/21/2021 [...] CDT Oxygen Saturation 99% 05/22/2018 1:14 PM LOGISTICS CENTER MANAGER Inhaled Oxygen Concentration - - Weight 61.2 [...] Negative (Non Reactive) 12/31/2019 9:43 PM CDT [facility] Comment:HIV-1 p24 Antigen an d HIV-1/HIV-2 Antibody not detected Blood Venipuncture / Unknown 12/31/2019 4:02 PM CDT 12/31/2019 4:02 PM CDT Rafal Curiel MD LAB_1 [facility] [address] from Last 3 Months or Most Recently Relevant to Health Maintenance Care Teams Automotive Parts Interpreter Relationship Specialty [place] [address] [place] [address] PCP - General Family Practice 05/03/17
--- OUTSIDE RECORDS SUMMARY | 2024-07-14 14:50 | XMS_ITS | Encounter Summary ---
Author Organization [facility] Address [address] [place] [address] Care Team Providers Care Forest Nursery Supervisor Name Role Phone Narda Young MD Unavailable [phone] Amauri Collins MD Unavailable [facility] Primary Care Provider Davina Obrien MD Unavailable [phone] Reason for Visit * Reason Comments Medication Refill Encounter Details Date Type Department Care Team (Late st Contact Info) Description 02/17/2022 [facility] [address] [place] [address] Amauri Collins MD [address] [place] [address] Medication Refill Social History Tobacco [...] on file Legal 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 Gender Identity Not on file Sexual Orientation Not on file 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 Not on file Not [...] Description 09/13/2024 11:00 AM CDT Office Visit [facility] [place] [address] [facility] 100 [place] [phone] Davina Obrien MD [address], [address] [address] documented as of this encounter Visit Diagnoses Diagnosis Strain of neck muscle, initial encounter documented in this encounter Additional Health Concerns Assessment Noted Time PHQ-9 Depression Total Score: 17 022 7:03 AM CDT documented as of this encounter Care Teams Forest Nursery Supervisor Relationship Specialty Start Date End Date Clinic - [facility] [address] [place], [place] [phone] PCP - General Internal Medicine 10/26/21 Narda Young MD [address] [address] upholsterer outside 09/22/21 Amauri Collins MD [address] [place], [place] [address] Assigned PCP 09/03/21 Davina Obrien MD [address], [address] [address] Physician upholsterer outside 07/10/24 documented as of this encounter
--- OUTSIDE RECORDS SUMMARY | 2024-07-14 14:50 | XMS_ITS | Encounter Summary ---
Author Organization [facility] Address [address] [place] [address] Care Team Providers Care Unit Control Worker Name Role Phone Narda Young MD Unavailable [phone] Amauri Collins MD Unavailable [facility] Primary Care Provider Davina Obrien MD Unavailable [phone] Reason for Visit * Reason Onset Date Comments Refill Request 11/20/2021 Encounter Details Date Type Department Care Team (Late st Contact Info) Description 11/20/2021 MyC Refill [facility] [address] [place] [phone] Amauri Collins MD [address] [place] [address] Refill Request Social History Tobacco [...] on file Legal Sex Female 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 GATE 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 Gender Identity Not on file Sexual Orientation Not on file 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 on [...] Description 09/13/2024 11:00 AM CDT Office Visit [facility] [address] [phone] Davina Obrien MD [address] [address] documented as of this encounter Visit Diagnoses Diagnosis Attention deficit disorder, unspecified hyperactivity presence Strain of neck muscle, initial encounter documented in this encounter Additional Health Concerns Assessment Noted Time PHQ-9 Depression Total Score: 17 022 7:03 AM CDT documented as of this encounter Care Teams Unit Control Worker Relationship Specialty Start Date End Date Clinic - [facility] [address] [place] [address] PCP - General Internal Medicine 10/26/21 Narda Young MD [address] [address] commissary clerk 09/22/21 Amauri Collins MD [address] [place] [address] Assigned PCP 09/03/21 Davina Obrien MD [address], [facility] 100 [place] [address] Physician commissary clerk 07/10/24 documented as of this encounter
--- OUTSIDE RECORDS SUMMARY | 2024-07-14 14:50 | XMS_ITS | Encounter Summary ---
Author Organization [facility] Address [address] [place] [address]. [place] [address] Care Team Providers Care Stock Patch Sawyer Name Role Phone Narda Young MD Unavailable [phone] Amauri Collins MD Unavailable [facility] Primary Care Provider Davina Obrien MD Unavailable [phone] Encounter Details Date Type Department Care Team (Late st Contact Info) Description 02/05/2022 MyC Medical Advice [facility] [address] [place] [address] Amauri Collins MD [address] [place] [address] Social History Tobacco Use Types Packs/Day Years Used Date Smoking Tobacco: Every Day Cigarettes Smokeless Tobacco: Never Alcohol Use Standard Drinks/Week Comments Yes 0 (1 standard drink = 0.6 oz pur e alcohol) PHQ-2 Answer Date Recorded PHQ-2 Score 4 10/26/2021 Comments Unknown Sex and Gender Information Value Date Recorded Sex Assigned at Not on file Legal Sex Female 3:15 AM WATER RESOURCE ENGINEER Gender Identity Not on file Sexual Orientation Not on file 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 Not on file documented as of this encounter Plan of Treatment Upcoming Encounters Date Type Department Care Team (Late st Contact Info) Description 09/13/2024 11:00 AM CDT Office Visit [facility] [place] [address] [facility] [address] [place] [phone] Davina Obrien MD [address], [place] [address] [place] [address] documented as of this encounter Visit Diagnoses Not on filedocumented in this encounter Additional Health Concerns Assessment Noted Time PHQ-9 Depression Total Score: 17 022 7:03 AM CDT documented as of this encounter Care Teams Stock Patch Sawyer Relationship Specialty Start Date End Date Clinic - [facility] [address] [place] [address] PCP - General Internal Medicine 10/26/21 Narda Young MD [address] [facility] [place] [address] social work faculty member 09/22/21 Amauri Collins MD [address] [place] [address] Assigned PCP 09/03/21 Davina Obrien MD [address], [facility] [place] [address] Physician social work faculty member 07/10/24 documented as of this encounter
--- OUTSIDE RECORDS SUMMARY | 2024-07-14 14:50 | XMS_ITS | Encounter Summary ---
Author Organization [facility] Address [address] [place] [address] Care Team Providers Care Agricultural Agent Name Role Phone No Ref-Primary, Physician Primary Care Provider Narda Young MD Unavailable [phone] Amauri Collins MD Unavailable [facility] Primary Care Provider Davina Obrien MD Unavailable [phone] Reason for Visit * Reason Onset Date Comments Refill Request 10/21/2021 Encounter Details Date Type Department Care Team (Late st Contact Info) Description 10/21/2021 MyC Refill [facility] [address] [place] [phone] Amauri Collins MD [address] [place], [place] [address] Refill Request Social History Tobacco Use Types Packs/Day Years Used Date Smoking Tobacco: Every Day Cigarettes Smokeless Tobacco: Never Alcohol Use Standard Drinks/Week Comments Yes 0 (1 standard drink = 0.6 oz pur e alcohol) Comments No Sex and Gender Information Value Date Recorded Sex Assigned at Not on file Legal Sex Female 3:15 AM JEWEL SAWYER Gender Identity Not on file Sexual Orientation Not on file 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 on file Not [...] Description 09/13/2024 11:00 AM CDT Office Visit [facility] [address] [place] [address] [address] [place] [phone] Davina Obrien MD [address] [facility] [address] [place] [address] documented as of this encounter Visit Diagnoses Diagnosis Strain of neck muscle, initial encounter documented in this encounter Additional Health Concerns Assessment Noted Time PHQ-9 Depression Total Score: 6 01/16/20 16 7:13 AM CDT documented as of this encounter Care Teams Agricultural Agent Relationship Specialty Start Date End Date No Ref-Primary, Physician PCP - General 09/22/21 10/25/[address] [address] PCP - General Internal Medicine 10/26/21 Narda Young MD [address] [facility] 100 [place] [address] compensation consulting manager 09/22/21 Amauri Collins MD [address] [place] [address] Assigned PCP 09/03/21 Davina Obrien MD [address], [facility] 100 [place] [address] Physician compensation consulting manager 07/10/24 documented as of this encounter
--- OUTSIDE RECORDS SUMMARY | 2024-07-14 14:50 | XMS_ITS | Encounter Summary ---
Author Organization [place] Address [address] [place] [address]. [place] [address] Care Team Providers Care Copy Director Name Role Phone Narda Young MD Unavailable [phone] Amauri Collins MD Unavailable [phone] [facility] Primary Care Provider Davina Obrien MD Unavailable [phone] Reason for Visit * Reason Onset Date Comments MyChart Communication 02/05/2022 Encounter Details Date Type Department Care Team (Latest Contact Info) Description 02/05/2022 MyC Medical Advice [facility] [address] [address] Narda Young MD [address] [place] [address] MyChart Communication Social History Tobacco Use [...] on file Legal Sex Female 3:15 AM FLOOR GRINDER Gender Identity Not on file Sexual Orientation Not on file 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 on file 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 Not on file Not on file documented as of this encounter Plan of Treatment Upcoming Encounters Date Type Department Care Team (Late st Contact Info) Description 09/13/2024 11:00 AM CDT Office Visit [facility] [place] [address] [facility] [address] [address] Davina Obrien MD [address], [facility] [address] [place] [address] documented as of this encounter Visit Diagnoses Not on filedocumented in this encounter Additional Health Concerns Assessment Noted Time PHQ-9 Depression Total Score: 17 022 7:03 AM CDT documented as of this encounter Care Teams Copy Director Relationship Specialty Start Date End Date Clinic - [facility] [address] [place] [address] PCP - General Internal Medicine 10/26/21 Narda Young MD [address] [facility] [address] [place] [address] barrel dedenting machine operator 09/22/21 Amauri Collins MD [address] [place] [address] Assigned PCP 09/03/21 Davina Obrien MD [address], [facility] [address] [place] [address] Physician barrel dedenting machine operator 07/10/24 documented as of this encounter
--- OUTSIDE RECORDS SUMMARY | 2024-07-14 14:50 | XMS_ITS | Encounter Summary ---
Author Organization [place] Address [address] [place] [address] Care Team Providers Care Audiometrist Name Role Phone No Ref-Primary, Physician Primary Care Provider Narda Young MD Unavailable [phone] Amauri Collins MD Unavailable [phone] [facility] Primary Care Provider Davina Obrien MD Unavailable [phone] Encounter Details Date Type Department Care Team (Late st Contact Info) Description 10/02/2021 [facility] Medical Advice [facility] [address] [place] [address] Amauri Collins MD [address] [place] [address] Social History Tobacco Use Types Packs/Day Years Used Date Smoking Tobacco: Every Day Cigarettes Smokeless Tobacco: Never Alcohol Use Standard Drinks/Week Comments Yes 0 (1 standard drink = 0.6 oz pur e alcohol) Comments No Sex and Gender Information Value Date Recorded Sex Assigned at Not on file Legal Sex Female 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 VIRTUAL OFFICE 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 Gender Identity Not on file Sexual Orientation Not on file 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 file Not on file Not [...] Description 09/13/2024 11:00 AM CDT Office Visit [facility] [place] [address] [facility] [address] [facility] 100 [place] [phone] Davina Obrien MD [address], [facility] [address] [place], [place] [address] documented as of this encounter Visit Diagnoses Not on filedocumented in this encounter Additional Health Concerns Assessment Noted Time PHQ-9 Depression Total Score: 6 01/16/20 16 7:13 AM CDT documented as of this encounter Care Teams Audiometrist Relationship Specialty Start Date End Date No Ref-Primary, Physician PCP - General 09/22/21 10/25/21 [facility] [address] [place], [place] [address] PCP - General Internal Medicine 10/26/21 Narda Young MD [address] [place] [address] [place], [place] [address] prosthodontist/owner 09/22/21 Amauri Collins MD [address] [place] [address] Assigned PCP 09/03/21 Davina Obrien MD [address], [facility] [address] [place] [address] Physician prosthodontist/owner 07/10/24 documented as of this encounter
--- OUTSIDE RECORDS SUMMARY | 2024-07-14 14:50 | XMS_ITS | Continuity of Care Document ---
Author Organization [facility] Address [address] [address] [place] [address] Phone Care Team Providers Care [employer] Leader Name Role Phone Gómez Cotton MD Unavailable [...] Abnormal Flag Status Comments Panel Description: Thyroid [place] Profile Za l TSH 15:49:23 0.761 UIU/ML [...] Mod [facility], [address] [address], [place], [place], [id number], [place] tel:[phone] [facility] Abdominal pain (chief complaint) Change In Bowel Habits Yury Magaña. [address] [facility], [place], [place], [id number] , [place]. tel:[phone] Referring Provider: Andrea Sousa, [address] [facility], [place], [address]. tel:[phone] Family History Family Member Type Diagnosis Age [...] disease Payers Payer name Insurance type Covered green party ID Authorpravina ajaygertrudis(s) [facility] [id number] Social History Type Description Quantity Date Captured [...]
[2024-07-14 15:03] LABS: Basophils Absolute Auto 0.05 K/uL (0.00-0.30); Basophils Percent Auto 0.7 % (0.0-3.0); Eosinophils Absolute Auto 0.29 K/uL (0.00-0.50); Eosinophils Percent Auto 4.2 % (0.0-7.0); Hematocrit 35.2 % (33.0-51.0); Hemoglobin* 11.4 gm/dL (12.0-16.0); Immature Granulocytes Abs Auto 0.01 K/uL (0.00-0.30); Immature Granulocytes Pct Auto 0.1 %; Lymphocytes Absolute Auto 2.47 K/uL (0.90-2.90); Lymphocytes Percent Auto 36.1 % (20-44); Mean Corpuscular HGB Conc 32 gm/dL (32-36); Mean Corpuscular Hemoglobin 29 pg (26-34); Mean Corpuscular Volume 89 fL (80-100); Monocytes Percent Auto 10.4 % (0.0-11.0); Neutrophils Absolute Auto 3.31 K/uL (1.7-7.0); Neutrophils Percent Auto 48.5 % (42.0-72.0); Platelet Count* 351 K/uL (140-440); RDW Coefficient of Variation % 12.9 % (11.5-15.5); Red Blood Count 3.96 m/uL (4.00-5.20); White Blood Count* 6.84 K/uL (4.50-11.00)
[2024-07-14 15:04] LABS: Slide Review Reflex No
[2024-07-14 15:31] LABS: HCG Qualitative Serum* Negative (Negative)
== END 2024-07-14 16:20 | disposition home or self-care (01) ==
PROVIDERS: Emergency Provider Emergency Medicine Emergency Medical Services; PCP Internal Medicine
DX: N93.9 Abnormal uterine and vaginal bleeding, unspecified (principal)
CPT/HCPCS: 36415; 76830; 84703; 85025; 93976; 99284

== ENCOUNTER 2024-08-09 09:00 | Day surgery (SDC) | payer BC, SELFPAY ==
[2024-08-09] VITALS (22 sets, daily range): BP systolic 90–125; BP diastolic 45–81; PULSE 54–94; RESP 14–20; TEMP 36.2–37.3; O2SAT 93–100; BMI 23.9
[2024-08-09] MEDS: ACETAMINOPHEN 500 MG TABLET 1000 MG PO ×2 (09:19→18:08)
[2024-08-09] MEDS: GABAPENTIN 600 MG TABLET PO (09:19)
[2024-08-09] MEDS: LACTATED RINGERS 1000 ML 1,000 ML 100 ML IV ×2 (09:20→12:28)
[2024-08-09] MEDS: SCOPOLAMINE 1 MG/3 DAY PATCH 1 PATCH TRANSDERMA (09:57)
[2024-08-09 09:58] LABS: Ur HCG Qualitative* Negative (Negative)
[2024-08-09] MEDS: SODIUM CHLORIDE 0.9 % (FLUSH) 10 ML SYRINGE IVF (09:58)
[2024-08-09 10:06] LABS: Hemoglobin* 12.3 gm/dL (12.0-16.0)
--- NOTE | 2024-08-09 10:23 | W.PM.H&PU ---
History & Physical Update History & Physical Update H&P Reviewed and patient assessed: No changes noted
--- NOTE | 2024-08-09 10:23 | PM.PROC ---
Procedure Note Time Seen by Provider: 13:59 Date Seen: 08/09/24 Date of procedure: 08/09/24 Will [facility] bill your pro fee for this procedure?: Yes Procedure: Preoperative diagnosis: 39-year-old 3 para 3 with menorrhagia with secondary anemia and dysmenorrhea. Postoperative diagnosis: Same Procedure: Total laparoscopic hysterectomy, Left salpingectomy, diagnostic cystoscopy. Anesthesia: General endotracheal, local Surgeon: Arlyn Santillan MD Assist: Cher Amador MD Estimated blood loss: 75 mL. IV Fluid: 1500 mL Urine output: 50 mL Drains: Hill to gravity Specimen: Uterus and left fallopian tube to pathology. Findings: On exam under anesthesia: The uterus was anteverted, approximately 8-10 week size, mobile without nodularity or masses palpable. Adnexa without mass or fullness palpable. Uterus sounded to 9 cm. On laparoscopy: Right fallopian tube and ovary are surgically absent. Liver and gallbladder appeared normal. The appendix was surgically absent. Procedure: Teresa was taken to the operating room where general anesthetic was found to be adequate. She was placed in the dorsal lithotomy position and an exam under anesthesia was performed with findings stated above. She was then prepped and draped in a normal sterile manner. A Hill catheter was placed. A bivalve speculum was placed in the vaginal canal. A long Allis clamp was placed on the anterior lip of the cervix, in the uterus sounded to Yohan 9 cm. A extra large VCare uterine manipulator was then placed. The Allis clamp and speculum were removed from the cervix. Attention was then turned to performing the laparoscopic portion of the procedure. All incisions were infiltrated with 0.25% Marcaine prior to incising the skin. A vertical, infraumbilical 1 cm incision was made. An 11 mm trocar was then placed under direct visualization. The abdomen was then insufflated with CO2 gas to a pressure of 15 mm of mercury. Two, pelvic ports were then placed approximately 3-4 finger breaths medial to the ischial crests. The trocar in the RLQ = 5mm, LLQ = 5mm. These were placed under direct visualization. Attention was then turned to performing the hysterectomy. Both ureters were visualized in the normal position bilaterally. The left fallopian tube was grasped and removed with sequential pedicles using the dissecting, Ligasure dissecting forceps. The left side of the hysterectomy was performed using the Ligasure dissecting forceps. The 1st pedicles were starting with the broad ligament that was cauterized and and bisected. In sequence show pedicles were formed to divide the utero-ovarian ligament. Then sequential pedicles were made through the broad ligament. The posterior leaf of the broad ligament was then divided and sequential pedicles carried down to the level of the VCare cup. The anterior leaf of the broad ligament was then divided down to the level of the anterior aspect of the VCare cup and a bladder flap created. The uterine vessels were then skeletonized. The uterine vessels were then cauterized and divided. Then excess tissue was cleared over the top of the VCare cup using the dissecting forceps. The right side of the hysterectomy was then performed in a similar manner. The Ligasure Valleylab pen with the spatula attachment was then used to perform the colpotomy incising around the VCare cup. The uterus was removed and the fundus placed in the vaginal canal to maintain insufflation. The vaginal cuff was then reapproximated using 2-0 V-lock suture in a running manner. All the pedicles and vaginal cuff were then closely visualized and hemostasis obtained with bipolar cautery using the Ligasure dissecting forceps and/or the Valleylab pen with the spatula. The the uterus was removed from the vaginal canal and sent to pathology. The Hill catheter was briefly removed. A diagnostic cystoscopy was performed using normal saline as the insufflation medium. The dome of the bladder was noted to be without injury and no evidence of any sutures from the vaginal cuff causing injury. Normal urine flow was noted through both ureteral orifices. Fluorescein IV was used to visualize the urine more easily. The Hill catheter was then replaced. Attention was then returned to the abdomen where hemostasis was verified. The CO2 pressure decreased to 8mmHG and hemostasis verified. The fascia in the umbilical incision was reapproximated using 0 Vicryl on a UR 6 needle. All trocars were removed under direct visualization. CO2 gas was allowed to escape the infraumbilical port prior to its removal. All skin incisions were re-approximated using 4-0 Monocryl in a running subcuticular manner, Exofin skin adhesive gel and adhesive bandages placed. The patient tolerated this procedure well. Sponge, lap and instrument counts were correct x2 at the end of the procedure and the patient was taken to the recovery area in stable condition. The patient received 2gm IV ancef prior to the start of the procedure.
[2024-08-09] MEDS: CEFAZOLIN 2 GM INJ IVP (11:56)
--- NOTE | 2024-08-09 11:56 | P.ANES_ITS ---
Anesthesia Charges Start Date/Time Anesthesia Start Date: 08/09/24 Anesthesia Start Time: 11:39 Stop Date/Time Anesthesia Stop Date: 08/09/24 Anesthesia Stop Time: 13:40 Coding CPT Codes CPT Codes: ANESTH SURG LOWER ABDOMEN - 22367 ([id number]) P2 - PATIENT W/MILD SYST DISEASE, QK - LINING INSERTER 2-4 CNCRNT ANES PROC, QX - CIRCUIT DESIGN ENGINEER SVC W/ MD MED DIRECTION
--- NOTE | 2024-08-09 11:56 | P.NB_ITS ---
Nerve Block Nerve Block Time Seen by Provider: 11:44 Date Seen: 08/09/24 Type of block requested by surgeon for post-operative analgesia: TAP Side: bilateral Time out performed: Yes Verification of patient name: Yes Verification of date of : Yes Site marking: site marked Name of person performing procedure: Rylan Continuous monitoring Was continuous monitoring of O2 sat, B/P, environmental monitoring technician, recorded every 15 minutes?: Yes Procedure Checklist: sterile prep, needles and gloves Ultrasound guided. Images saved: Yes Medications given in 5ml increments after negative aspiration: Marcaine %: 0.25 mL: 30 Needle gauge: 20 and Exparel mL: 10 Patient tolerated procedure well: Yes Additional comments: Needle noted between internal oblique and transversus abdominus. Local spread visualized Block Charges Block Charge (with Pro Fee): TAP Bilateral Use of Ultrasound Machine for Block: Yes- US Guidance/pain block
--- NOTE | 2024-08-09 11:56 | W.ANESCHARGE ---
Anesthesia Charges Start Date/Time Anesthesia Start Date: 08/09/24 Anesthesia Start Time: 11:39 Stop Date/Time Anesthesia Stop Date: 08/09/24 Anesthesia Stop Time: 13:40 Coding CPT Codes CPT Codes: ANESTH SURG LOWER ABDOMEN - 94065 ([id number]) P2 - PATIENT W/MILD SYST DISEASE, QK - KITCHEN AIDE 2-4 CNCRNT ANES PROC, QX - MOTOR COACH CHAUFFEUR SVC W/ MD MED DIRECTION
[2024-08-09] MEDS: BUPIVACAINE 0.5% 30 ML INJECTION (12:23)
[2024-08-09] MEDS: KETOROLAC 30 MG/ML inj IVP ×2 (13:20→19:55)
--- NOTE | 2024-08-09 13:46 | P.ANES_ITS ---
Anesthesia Charges Start Date/Time Anesthesia Start Date: 08/09/24 Anesthesia Start Time: 11:39 Stop Date/Time Anesthesia Stop Date: 08/09/24 Anesthesia Stop Time: 13:40 Coding CPT Codes CPT Codes: ANESTH SURG LOWER ABDOMEN - 75085 ([id number]) P2 - PATIENT W/MILD SYST DISEASE, QX - BUSINESS SUPPORT COORDINATOR SVC W/ MD MED DIRECTION, QK - SUPERVISING BAILIFF 2-4 CNCRNT ANES PROC
--- NOTE | 2024-08-09 13:46 | W.ANESCHARGE ---
Anesthesia Charges Start Date/Time Anesthesia Start Date: 08/09/24 Anesthesia Start Time: 11:39 Stop Date/Time Anesthesia Stop Date: 08/09/24 Anesthesia Stop Time: 13:40 Coding CPT Codes CPT Codes: ANESTH SURG LOWER ABDOMEN - 71227 ([id number]) P2 - PATIENT W/MILD SYST DISEASE, QX - EMAIL PRODUCER SVC W/ MD MED DIRECTION, QK - CENTRAL SUPPLY WORKER 2-4 CNCRNT ANES PROC
[2024-08-09] MEDS: fentaNYL 100 MCG/2 ML inj 50 MCG IVP ×2 (13:50→13:55)
[2024-08-09] MEDS: HYDROmorphone 0.5 mg/0.5 ml inj IVP ×2 (14:56→18:51)
--- NOTE | 2024-08-09 15:57 | PC.NURSE ---
End of shift - - Pt arrived from PACU at approximately 1415. Pt alert, oriented, pleasant and able to follow directions on arrival. Reported double vision on arrival from PACU, but stated that it improved with time once on Med/Surg. Pt reported pain in abdomen as 7/10. Ice pack and medication per MAR given with pt reporting improved comfort. Pt tolerating RA, regular diet and fluids. No n/v or SOB reported. Hill catheter noted to be patent and draining. Family at bedside. VSS, Lap sites CDI with no noted drainage. Pt not up from bed during shift. RN handed off care at approximately 1530.
[2024-08-09] MEDS: OXYCODONE 5 MG TABLET PO ×2 (16:25→22:21)
[2024-08-09] MEDS: ONDANSETRON 2 MG/ML inj 4 MG IVP (19:49)
--- NOTE | 2024-08-09 22:05 | PC.NURSE ---
End of Shift ([id number]): Patient pleasant and cooperative. Afebrile. Lap sites to abdomen C/D/I. Rating pain up to 7-8/10 and PRN Dilaudid, oxycodone and Tylenol given x1. Patient tolerating regular diet with no nausea. Up to chair with SBA. Hill patent.
[2024-08-10] MEDS: ACETAMINOPHEN 500 MG TABLET 1000 MG PO ×2 (00:28→07:57)
[2024-08-10 02:04] VITALS: PULSE 64; RESP 17; TEMP 36.9; O2SAT 98
[2024-08-10] MEDS: LACTATED RINGERS 500 ML 500 ML IV (02:35)
[2024-08-10] MEDS: KETOROLAC 30 MG/ML inj IVP (02:35)
[2024-08-10 02:53] LABS: Basophils Percent Auto 0.1 % (0.0-3.0); Eosinophils Percent Auto 0.1 % (0.0-7.0); Hematocrit 31.5 % (33.0-51.0); Immature Granulocytes Pct Auto 0.1 %; Lymphocytes Percent Auto 10.8 % (20-44); Mean Corpuscular HGB Conc 32 gm/dL (32-36); Mean Corpuscular Hemoglobin 28 pg (26-34); Mean Corpuscular Volume 89 fL (80-100); Monocytes Percent Auto 8.8 % (0.0-11.0); Neutrophils Percent Auto 80.1 % (42.0-72.0); Platelet Count* 227 K/uL (140-440); RDW Coefficient of Variation % 12.5 % (11.5-15.5); Red Blood Count 3.54 m/uL (4.00-5.20); White Blood Count* 14.25 K/uL (4.50-11.00)
[2024-08-10 02:55] LABS: Slide Review Reflex No
[2024-08-10 04:14] VITALS: BP 89/51
[2024-08-10] MEDS: LACTATED RINGERS 1000 ML 1,000 ML 100 ML IV (04:45)
[2024-08-10] MEDS: OMEPRAZOLE 20 MG CAPSULE DR 40 MG PO (06:23)
[2024-08-10 06:24] VITALS: BP 89/59
[2024-08-10] MEDS: OXYCODONE 5 MG TABLET PO ×2 (06:30→08:05)
--- NOTE | 2024-08-10 06:49 | PC.NURSE ---
Shift note ([id number]): Patient pleasant, alert and oriented. Ambulates with stand by assist.? Lap sites clean, dry and intact. Blood pressures soft. Pt reported some dizziness when ambulating to the bathroom. PRICING ANALYST On-call MD updated. New orders rec?d for?LR 500mL bolus. BP continued to be soft after administration. LR at 100mL/hr restarted per existing orders. Given scheduled Toradol, PRN Tylenol and PRN oxycodone for abdominal pain rated 8/10. Catheter removed at 2215. Has had good output since that time. Scant amount of blood in maxi pad.?
[2024-08-10 07:00] VITALS: BP 98/55; PULSE 64; RESP 16; TEMP 37.1; O2SAT 99
[2024-08-10] MEDS: IBUPROFEN 600 MG TABLET PO (09:10)
--- NOTE | 2024-08-10 09:40 | PM.GYNDS1 ---
DS: Providers Provider Time Seen by Provider: 09:00 Date Seen: 08/10/24 Date of admission: 08/09/2024 Primary care physician: Remberto Anderson MD Admitting Clinician: Arlyn Santillan MD Attending Physician on discharge: Arlyn Santillan MD Date of Discharge: 08/10/24 DS: Diagnosis Discharge Diagnosis (1) Status post laparoscopic hysterectomy: Status: Acute Problem details: With left salpingectomy and diagnostic cystoscopy to treat menorrhagia and dysmenorrhea. 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 Indication for surgery: Menorrhagia with secondary anemia and dysmenorrhea. Intraoperative findings were notable for normal appearing anatomy of the pelvis. Right ovary and tube surgically absent, appendix surgically absent. She had an uncomplicated surgery. Postoperative course has been uneventful. Vitals have been stable. She has remained afebrile. Today, on postoperative day 1, she reports the pain is well controlled. She has been able to ambulate Without difficulty. She is tolerating regular diet. She is passing flatus. Hill catheter has been removed, and she is voiding without difficulty. Time Spent with Patient Time attestation: Total time spent providing and/or coordinating discharge services: Time spent: Less than 30 minutes FUNERAL LIMOUSINE DRIVER - Exam Physical Exam: Vital signs: Temp Pulse Resp BP Pulse Ox O2 Del Method 98.8 F 64 16 98/55 L 99 Room Air 08/10/24 07:00 08/10/24 07:00 08/10/24 07:00 08/10/24 07:00 08/10/24 07:00 08/10/24 07:00 Narrative: General: Pleasant, , well groomed woman in no acute distress. Vital signs: Included in her electronic medical record. Chest: Clear to auscultation bilaterally. Heart: Regular rate and rhythm without gallop, rub or murmur. Abdomen: Soft, nontender and nondistended. Normal bowel sounds throughout. No CVA or flank tenderness. Incisions: All clean, dry and intact with sutures and skin adhesive gel. Extremities: No pain or edema. FUNERAL LIMOUSINE DRIVER - DS: Data Data Completed and Pending Labs on day of discharge: Labs from last 24 hours 08/10/24 08/09/24 08/09/24 02:40 09:48 09:40 WBC 14.25 H RBC 3.54 L Hgb 10.0 L 12.3 Hct 31.5 L MCV 89 MCH 28 MCHC 32 RDW Coeff of Antonieta 12.5 Plt Count 227 Neut % (Auto) 80.1 H Lymph % (Auto) 10.8 L Cuming % (Auto) 8.8 Eos % (Auto) 0.1 Baso % (Auto) 0.1 Neut # (Auto) 11.40 H Lymph # (Auto) 1.50 Cuming # (Auto) 1.30 H Eos # (Auto) 0.00 Baso # (Auto) 0.00 Abs Immat Gran (auto) 0.00 Imm/Tot Granulo (auto) 0.1 Urine HCG, Qual Negative Blood Type AB Positive Antibody Screen NEGATIVE Procedures Procedures: Procedures Operation Date: 08/09/24 11:45 Actual Procedure Side Surgeon p Total Laparoscopic Hysterectomy, Left Salpingectomy, Diagnostic Cystoscopy Arlyn Santillan MD Discharge Plan Discharge Disposition: Home w/ Parent or Adult Discharging Surgeon: Arlyn Santillan Follow-Up Appointment: 2 and 6 [address] appointments with Dr[address] Santillan Prescriptions: No Action omeprazole 20 mg capsule,delayed release(DR/EC) 40 mg PO DAILY sumatriptan succinate 50 mg tablet 50 mg PO Q2H PRN (Reason: migraine headache) Qty: 12 12RF Activity Level: Other Discharge Diet: Regular Patient Instructions: Laparoscopic Hysterectomy (DC) Additional Instructions: ACTIVITY RESTRICTIONS: Nothing vaginally for 6 weeks: no tampons/intercourse No driving while taking narcotic pain medication during the day. 1-2 weeks. Lifting restriction: Maximum of 20 pounds for 4 weeks. High impact or core exercises: 4 weeks. Submerge the incisions in water (bath/pool/davies): 2 weeks. Off of work/school for a minimum of 4 weeks NO RESTRICTIONS for: Walking Going up/down stairs Showering Being the passenger in a motor vehicle SYMPTOMS TO REPORT TO YOUR DOCTOR: Bleeding that is red, like a moderate period Passing clots larger than the size of a golf ball Pain not relieved by prescribed medication Fever above 100.4 degrees Fahrenheit A foul vaginal odor Decrease in urination or painful, frequent urinating Chest pain Shortness of breath Tenderness or pain with redness and/swelling in the calf(s) of your leg Follow-up Appointments: 1. [facility] 2-3 weeks for an incision check. 2. A 6 week postop visit to verify that the vaginal cuff is well-healed. For Pain: Alternate 600mg ibuprofen with 2 tablets (1,000mg) of ES Tylenol (Acetaminophen) every 3 hours. Add 1 tablet of oxycodone if needed up to 3 times per day. Follow-up: Arlyn Santillan MD [Staff Physician] - Remberto Anderson MD [Primary Care Provider] - Discharge Orders: Discharge Order (Routine); Ordered 08/10/24 Ordered By: Arlyn Santillan
--- NOTE | 2024-08-10 12:33 | PC.NURSE ---
The patient discharged home and ambulated off the unit. Lap sites are CDI with glue... The patient has not passed gas upon discharge. All questions were answered and a work note was provided to excuse the patient from work. Anayeli DICKENS BSN
== END 2024-08-10 10:52 | disposition home or self-care (01) ==
LOC: OR 09:01 → MEDSURG 09:03
PROVIDERS: PCP Internal Medicine; Visit Provider Obstetrics & Gynecology
PROC: 0UT94ZZ Resection of Uterus, Percutaneous Endoscopic Approach (ICD-10-PCS; CPT 58571; principal; 2024-08-09 11:30)
DX: N92.0 Excessive and frequent menstruation with regular cycle (principal); N94.6 Dysmenorrhea, unspecified; D50.0 Iron deficiency anemia secondary to blood loss (chronic); G89.18 Other acute postprocedural pain
CPT/HCPCS: 58571; 00840; 36415; 64488; 76942; 81025; 85018; 85025; 86850; 86900; 86901; 88309; 88342; A4314; A9270; J0330; J0665; J0666; J0690; J1100; J1171; J1885; J2250; J2405; J2704; J3010; J3475; J3490; J7120

== ENCOUNTER 2024-09-11 12:05 | Outpatient (CLI) | payer BC, SELFPAY | END 2024-09-11 12:06 | disposition home or self-care (01) | LOC: NFLDREF 12:06 | PROVIDERS: PCP Internal Medicine; Visit Provider Obstetrics & Gynecology | DX: T81.49XA Infection following a procedure, other surgical site, initial encounter (principal); Z90.710 Acquired absence of both cervix and uterus | CPT/HCPCS: 87070; 87186 ==

== ENCOUNTER 2024-11-12 16:45 | Emergency (ER) | payer BC, SELFPAY ==
--- OUTSIDE RECORDS SUMMARY | 2024-11-12 16:47 | XMS_ITS | Encounter Summary ---
Author Organization [place] Address [address] [place] [address] Care Team Providers Care Paraprofessional Aide Name Role Phone Narda Young MD Unavailable [phone] Amauri Collins MD Unavailable Formerly Named [facility] Primary Care Provider Davina Obrien MD Unavailable Unavailable Reason for Visit * Reason Onset Date Comments Refill Request 11/20/2021 Encounter Details Date Type Department Care Team (Late st Contact Info) Description 11/20/2021 MyC Refill [facility] [address] [place] [address] Amauri Collins MD [address] [place], [place] [id number] Refill Request Social History Tobacco Use Types Packs/Day Years Used Date Smoking Tobacco: Every Day Cigarettes Smokeless Tobacco: Never Alcohol Use Standard Drinks/Week Comments Yes 0 (1 standard drink = 0.6 oz pur e alcohol) PHQ-2 Answer Date Recorded PHQ-2 Score 4 10/26/2021 Comments Unknown Sex and Gender Information Value Date Recorded Sex Assigned at Not on file Legal Sex Female 3:15 AM CODING DIRECTOR Gender Identity Not on file Sexual Orientation Not on file 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 No / Unsure 10/26/2021 12:30 PM CDT documented as of this encounter Miscellaneous Notes * Telephone Encounter - Wanda Rosas, RN - 11/20/2021 2:06 PM CDT Routing refill request to provider for review/approval because: Drug not on the [facility] refill protocol documented in this encounter Plan of Treatment Not on file documented as of this encounter Visit Diagnoses Diagnosis Attention deficit disorder, unspecified hyperactivity presence Strain of neck muscle, initial encounter documented in this encounter Additional Health Concerns Assessment Noted Time PHQ-9 Depression Total Score: 17 022 7:03 AM CDT documented as of this encounter Care Teams Paraprofessional Aide Relationship Specialty Start Date End Date Clinic - [facility] [address] [place] [address] PCP - General Internal Medicine 10/26/21 Narda Young MD [address] [address] cardiac rn 09/22/21 Amauri Collins MD [address] [place] [address] Assigned PCP 09/03/21 Davina Obrien MD [address] [place] [address] Physician cardiac rn 07/10/24 documented as of this encounter
--- OUTSIDE RECORDS SUMMARY | 2024-11-12 16:47 | XMS_ITS | Encounter Summary ---
Author Organization [facility] Address [address] [place] [address] Care Team Providers Care Garbage Collector Supervisor Name Role Phone Narda Young MD Unavailable [phone] Amauri Collins MD Unavailable [facility] Primary Care Provider Davina Obrien MD Unavailable Unavailable Reason for Visit * Reason Comments Medication Refill Encounter Details Date Type Department Care Team (Late st Contact Info) Description 02/17/2022 [facility] [address] [place] [address] Amauri Collins MD [address] [place] [address] Medication Refill Social History Tobacco [...] on file Legal Sex Female 3:15 AM ADHESIVE PRIMER Gender Identity Not on file Sexual Orientation Not on file 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 on file 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 on 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 Not on file Not on file documented as of this encounter Miscellaneous Notes * Telephone Encounter - Wadna Rosas RN - 02/19/2022 8:08 AM CDT Routing [...] documented as of this encounter Care Teams Garbage Collector Supervisor Relationship Specialty Start Date End Date Clinic - [facility] [address] [place] [address] PCP - General Internal Medicine 10/26/21 Narda Young MD [address] [address] centrifugal operator 09/22/21 Amauri Collins MD [address] [place] [address] Assigned PCP 09/03/21 Davina Obrien MD [address] [place] [address] Physician centrifugal operator 07/10/24 documented as of this encounter
--- OUTSIDE RECORDS SUMMARY | 2024-11-12 16:47 | XMS_ITS | Encounter Summary ---
Author Organization [facility] Address [address] [place] [address] Care Team Providers Care School Business Administrator Name Role Phone Narda Young MD Unavailable [phone] Amauri Collins MD Unavailable [facility] Primary Care Provider Davina Obrien MD Unavailable Unavailable Reason for Visit * Reason Onset Date Comments Refill Request 03/10/2022 Encounter Details Date Type Department Care Team (Late st Contact Info) Description 03/10/2022 MyC Refill [facility] [address] [place] [address] Amauri Collins MD [address] [facility] [place] [address] Refill Request Social History Tobacco Use Types Packs/Day Years Used Date Smoking Tobacco: Every Day Cigarettes Smokeless Tobacco: Never Alcohol Use Standard Drinks/Week Comments Yes 0 (1 standard drink = 0.6 oz pur e alcohol) PHQ-2 Answer Date Recorded PHQ-2 Score 4 10/26/2021 Comments Unknown Sex and Gender Information Value Date Recorded Sex Assigned at Not on file 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 It would be unethical and inappropriate for me to continue to prescribe stimulant medications for her. * Telephone Encounter - Wanda Rosas RN - 03/11/2022 5:45 PM CDT Routing [...] documented as of this encounter Care Teams School Business Administrator Relationship Specialty Start Date End Date Clinic - [facility] [address] [place] [address] PCP - General Internal Medicine 10/26/21 Narda Young MD [address] [address] passenger solicitor 09/22/21 Amauri Collins MD [address] [place] [address] Assigned PCP 09/03/21 Davina Obrien MD [address] [place] [address] Physician passenger solicitor 07/10/24 documented as of this encounter
--- OUTSIDE RECORDS SUMMARY | 2024-11-12 16:47 | XMS_ITS | Clinical Summary ---
Author Organization [facility] Address [address] [place] [address] Care Team Providers Care Stereo Map Plotter Operator Name Role Phone Narda Young MD Unavailable [phone] Amauri Collins MD Unavailable [phone] [facility] Primary Care Provider Davina Obrien MD Unavailable Unavailable Allergies No known active allergies Medications omeprazole [...] third trimester 08/01/2015 10/26/2021 Abnormal test 07/18/2015 05/02/2022 Supervision of other normal , first trimester 03/27/2015 03/27/2015 Supervision of other normal , first trimester 03/27/2015 10/26/2021 Overview (07/18/2015): OB Notes-wants tubal if needs c/s GIRL!(Lira) Verifi-(+)Trisomy 13 screen; amnio wnl and no trisomy detected; Level II WNL and anterior placenta -Rashad OB History- x2 Tabitha 6-7# PROM @38-39 weeks and needed pitocin augmentation Marvel 7-15# elective indux @ 39 weeks Flu shot 03-24-15 GCT/OBHGB = passed 100/11.3 gave iron info Vacuum extraction, delivered , current hospitalization 10/26/2013 03/27/2015 Overview (04/21/2015): Diagnosis updated by automated process. Provider to review and confirm. 10/24/2013 03/27/2015 Immunizations Immunization Administration Dates Next Due DTAP (<7y) 10/06/1992, 9,1987,1987,1987 HIB, Unspecified 11/26/1988, 8,1987,1987 Hepatitis B, Adult (Energix-B/Recombivax HB) 10/10/2000 Hepatitis B, Peds (Engerix-B/Recombivax HB) 10/10/2000,02/08/2000,01/07/2000 Influenza (High Dose) Trival ent,PF (Fluzone) 03/24/2015,03/28/2013 Influenza (IIV3) PF 03/24/2015,03/28/2013 Influenza (prior to 2023) 03/28/2013 Influenza Vaccine >6 months,quad, PF 10/2018,02/22/2018,03/29/2017,2015,03/24/2015 MMR (MMRII) 01/07/2000,07/21/1988 Pneumococcal 23 valent 12/31/2019 Polio, Unspecified [...] on file Legal Sex Female 3:15 AM FUR BUYER Gender Identity Not on file Sexual Orientation Not on file 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 [...] 10/26/2021 12:57 PM CDT Plan of Treatment Health Maintenance Due Date Last Done Comments ADVANCE CARE PLANNING 1987 DIABETES SCREENING 1987 YEARLY PREVENTIVE VISIT 1990 HEPATITIS C SCREENING 2005 PAP 12/05/2016 12/05/2013 ANNUAL REVIEW OF HM ORDERS 10/26/2022 10/26/2021 COVID-19 Vaccine ( season) 2024 05/21/2021 INFLUENZA VACCINE (Season Ended) 2025 05/24/2019, 02/22/2018, 03/29/2017, Additional history exists DTAP/TDAP/TD IMMUNIZATION (9 - Td or Tdap) 07/18/2025 07/18/2015, 08/08/2013, 08/11/2010, Additional history exists ZOSTER IMMUNIZATION (1 of 2) 2037 HEPATITIS B IMMUNIZATION Completed 001, 10/10/2000, 02/08/2000, Additional history exists HIV SCREENING Completed 03/24/2015, 03/28/2013 Pneumococcal Vaccine: Pediatrics (0 to 5 Years) and At-Risk Patients (6 to 49 Years) Aged Out 12/31/2019 No longer eligible based on patient's age to complete this topic HPV IMMUNIZATION Aged Out No longer e [...] Ag & HIV-1/HIV-2 Ab Not Detected NR [facility] Blood specimen (specimen) 03/24/2015 3:43 PM CDT 03/24/2015 3:44 PM CDT us Narda Young MD LAB - BLOOD ORDERABLES Final Re sult [facility] [address] [place] [address] * ABSTRACT PAP-NO CHARGE (12/05/2013) 12/05/2013 Narrative EXTERNAL LAB - 12/05/2013 PAP SMEAR - CHRIS RANDOLPH us Provider Outside LAB - HIM EXTERNAL RESULT Final Result EXTERNAL LAB External Lab from Last 3 Months or Most Recently Relevant to Health [place] [id number] [facility] [place] [id number] [facility] Care Teams Stereo Map Plotter Operator Relationship Specialty Start Date End Date Clinic - [facility] [address] [place] [address] PCP - General Internal Medicine 10/26/21 Narda Young MD [address] [facility] [address] [address] lens finisher 09/22/21 Amauri Collins MD [address] [place] [address] Assigned PCP 09/03/21 Davina Obrien MD [address] [place] [address] Physician lens finisher 07/10/24
--- OUTSIDE RECORDS SUMMARY | 2024-11-12 16:47 | XMS_ITS | Encounter Summary ---
Author Organization [facility] Address [address] [place] [address]. [place] [address] Care Team Providers Care Budget Record Clerk Name Role Phone Narda Young MD Unavailable [phone] Amauri Collins MD Unavailable [facility] Primary Care Provider Davina Obrien MD Unavailable Unavailable Encounter Details Date Type Department Care Team (Late st Contact Info) Description 02/05/2022 MyC Medical Advice [facility] [address] [place] [address] Amauri Collins MD [address] [place] [address] Social History Tobacco Use Types Packs/Day Years Used Date Smoking Tobacco: Every Day Cigarettes Smokeless Tobacco: Never Alcohol Use Standard Drinks/Week Comments Yes 0 (1 standard drink = 0.6 oz pur e alcohol) PHQ-2 Answer Date Recorded PHQ-2 Score 4 10/26/2021 Comments Unknown Sex and Gender Information Value Date Recorded Sex Assigned at Not on file 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 Gender Identity Not on file Sexual Orientation Not on file 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 Not on file documented as of this encounter Plan of Treatment Not on file documented as of this encounter Visit Diagnoses Not on filedocumented in this encounter Additional Health Concerns Assessment Noted Time PHQ-9 Depression Total Score: 17 022 7:03 AM CDT documented as of this encounter Care Teams Budget Record Clerk Relationship Specialty Start Date End Date Clinic - [facility] [address] [place] [address] PCP - General Internal Medicine 10/26/21 Narda Young MD [address] [address] import clerk 09/22/21 Amauri Collins MD [address] [place] [address] Assigned PCP 09/03/21 Davina Obrien MD [address] [place] [address] Physician import clerk 07/10/24 documented as of this encounter
--- OUTSIDE RECORDS SUMMARY | 2024-11-12 16:47 | XMS_ITS | Clinical Summary ---
Author Organization [facility] Address [address], [place] [address] Care Team Providers Care Locomotive Operator Name Role Phone Rafal Curiel MD Primary Care Provider [phone] Source Comments You are receiving this document as you are listed as the primary care provider,follow-up provider, or the patient has been referred to you for consultation.This is in compliance with the Medicare andMedicaid EHR Incentive Program,which states Providers who transition their patient to another setting of careor provider of care or refers their patient to another provider of care shouldprovide summary care record for each transition of care or referral. [facility] Allergies No known active allergies Medications * This document contains information received from the source organization and may not represent a complete record from that organization. amphetamine-dex troamphetamine (ADDERALL) 30 MG tablet 9 Active omeprazole (PRILOSEC) 40 MG capsuleIndicati ons:Gastroesoph ageal reflux disease with esophagitis without hemorrhage Take 1 Capsule (40 mg) by mouth daily. Take 1 hour before a meal. 90 Capsule 1 2 Active eszopiclone (LUNESTA) 3 MG tabletIndicatio ns:Insomnia, unspecified type Take 1 Tablet (3 mg) by mouth at bedtime as needed. 30 Tablet 2 Active busPIRone (BUSPAR) 5 MG tabletIndicatio ns:Panic disorder with agoraphobia (HRC) Take 1 Tablet by mouth two times a day. 60 Tablet 3 0 020 Discontinued Active Problems Problem Noted Date Diagnosed [...] type 09/19/2017 12/31/2019 Anxiety 05/04/2017 12/31/2019 Immunizations Immunization Administration Dates Next Due DTaP 10/06/1992, 9,1987,1987,1987 Flu Vac (3+ yrs) 03/24/2015 Flu Vac Preserv Free (3+yrs) 03/28/2013 HepB Adult (Engerix-B, 20+ y rs, 3 dose series) 10/10/2000 HepB Ped/Adol (0-18 yrs) 10/10/2000,02/08/2000,0 01/07/2000 Hib, Unspecified Formulation 11/26/1988, 1987,1987,1987 IPV (Polio) 10/06/1992, 9,1987,1987 Influenza IIV3 (Trivalent) F luzolili Highdose, 65+ Yrs (47074) 03/24/2015,03/28/2013 Influenza IIV4 (Quadrivalent ) 0.5mL (36700) 05/24/2019,02/22/2018,03/29/2017,2015,03/24/2015 MMR 01/07/2000,07/21/1988 Moderna Monovalent 12+ 05/21/2021 [...] Answer Date Recorded PHQ-2 Score 4 09/07/2021 Comments No Sex and Gender Information Value Date Recorded Sex Assigned at Not on file Legal Sex Female 6:00 PM CDT Gender Identity Not on file Sexual Orientation Not on file Last Filed Vital Signs Vital Sign Reading Time Taken Comments Blood Pressure 140/88 09/16/2021 1:11 PM CDT Pulse 99 09/16/2021 1:11 PM CDT Temperature 36.9 C (98.4 F) 09/07/2021 12:04 PM CDT Respiratory Rate 16 09/16/2021 1:11 PM CDT Oxygen Saturation 99% 05/22/2018 1:14 PM CHECK PROCESSOR Inhaled Oxygen Concentration - - Weight 61.2 kg (135 lb) 09/16/2021 1:11 PM CDT Height 160 cm (5' 3) 09/16/2021 1:11 PM CDT Body Mass Index 23.91 09/16/2021 1:11 PM CDT Plan of Treatment Health Maintenance Due Date Last Done Comments Hep C Screening (Preventive Services) 1987 Adult Preventive Visit 2005 Cervical Cancer Screening 12/17/2018 12/18/2015 (Com pleted) Pneumococcal Vaccine (2 of 2 - PCV) 12/30/2020 12/31/2019 COVID-19 Vaccine (2 - season) 2024 05/21/2021 Influenza Vaccine (Season Ended) 2025 05/24/2019, 02/22/2018, 03/29/2017, Additional history exists DTaP/Tdap/Td Vaccine (11 - Tdap) 07/18/2025 07/18/2015, 07/18/2015, 12/02/2014, Additional history exists Zoster/Shingles Vaccine (1 of 2) 2037 Hib Vaccine Completed 11/26/1988, 10/18, 1987, Additional history exists IPV (Polio) Vaccine Completed 10/06/1992, 10/06/1992, 11/26/1988, Additional history exists HepB Vaccine Completed 10/10/2000, 09/19, 02/08/2000, Additional history exists HIV Screening (Preventive Services) Completed 12/31/2019 HPV Vaccine Aged Out No longer eligi ble based on patient's age to complete this topic HepA Vaccine Aged Out No longer eligi ble based on patient's age to complete this topic MCV4 Vaccine Aged Out No longer eligi ble based on patient's age to complete this topic Meningococcal B Vaccine Aged Out No l onger eligible based [...] Negative (Non Reactive) 12/31/2019 9:43 PM CDT [facility] Comment:HIV-1 p24 Antigen an d HIV-1/HIV-2 Antibody not detected Blood Venipuncture / Unknown 12/31/2019 4:02 PM CDT 12/31/2019 4:02 PM CDT us Rafal Curiel MD LAB_1 Final Result [facility] [address] [place] [address], [facility] from Last 3 Months or Most Recently Relevant to Health Maintenance Care Teams Locomotive Operator Relationship Specialty [place] [address] [place] [address] PCP - General Family Practice 05/03/17
--- OUTSIDE RECORDS SUMMARY | 2024-11-12 16:47 | XMS_ITS | Encounter Summary ---
Author Organization [facility] Address [address] [place] [address] Care Team Providers Care Client Solutions Specialist Name Role Phone No Ref-Primary, Physician Primary Care Provider Narda Young MD Unavailable [phone] Amauri Collins MD Unavailable [facility] Primary Care Provider Davina Obrien MD Unavailable Unavailable Reason for Visit * Reason Onset Date Comments Refill Request 10/21/2021 Encounter Details Date Type Department Care Team (Late st Contact Info) Description 10/21/[address] 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 Gender Identity Not on file Sexual Orientation [...] documented as of this encounter Care Teams Client Solutions Specialist Relationship Specialty Start Date End Date No Ref-Primary, Physician PCP - General 09/22/21 10/25/21 [facility] [address] [place] [address] PCP - General Internal Medicine 10/26/21 Narda Young MD [address] [address] photographic double 09/22/21 Amauri Collins MD [address] [place] [address] Assigned PCP 09/03/21 Davina Obrien MD [address] [place] [address] Physician photographic double 07/10/24 documented as of this encounter
--- OUTSIDE RECORDS SUMMARY | 2024-11-12 16:47 | XMS_ITS | Encounter Summary ---
Author Organization [facility] Address [address] [place] [address]. [place] [address] Care Team Providers Care Timber Framer Helper Name Role Phone Narda Young MD Unavailable [phone] Amauri Collins MD Unavailable [phone] [facility] Primary Care Provider Davina Obrien MD Unavailable Unavailable Reason for Visit * Reason Onset Date Comments MyChart Communication 02/05/2022 Encounter Details Date Type Department Care Team (Latest Contact Info) Description 02/05/[address] [facility] [address] [address] Narda Young MD [address] [place] [address] MyChart Communication Social History Tobacco Use Types Packs/Day Years Used Date Smoking Tobacco: Every Day Cigarettes Smokeless Tobacco: Never Alcohol Use Standard Drinks/Week Comments Yes 0 (1 standard drink = 0.6 oz pur e alcohol) PHQ-2 Answer Date Recorded PHQ-2 Score 4 10/26/2021 Comments Unknown Sex and Gender Information Value Date Recorded Sex Assigned at Not on file Legal Sex Female 3:15 AM IRRIGATOR SPRINKLING SYSTEM Gender Identity Not on file Sexual Orientation Not on file 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 on file Not on file documented as of this encounter Plan of Treatment Not on file documented as of this encounter Visit Diagnoses Not on filedocumented in this encounter Additional Health Concerns Assessment Noted Time PHQ-9 Depression Total Score: 17 022 7:03 AM CDT documented as of this encounter Care Teams Timber Framer Helper Relationship Specialty Start Date End Date Clinic - [facility] [address] [place] [address] PCP - General Internal Medicine 10/26/21 Narda Young MD [address] [address] certified addiction counselor 09/22/21 Amauri Collins MD [address] [place] [address] Assigned PCP 09/03/21 Davina Obrien MD [address] [place] [address] Physician certified addiction counselor 07/10/24 documented as of this encounter
--- OUTSIDE RECORDS SUMMARY | 2024-11-12 16:48 | XMS_ITS | Encounter Summary ---
Author Organization [facility] Address [address] [place] [address] Care Team Providers Care Analog Design Engineer Name Role Phone No Ref-Primary, Physician Primary Care Provider Narda Young MD Unavailable [phone] Amauri Collins MD Unavailable [facility] Primary Care Provider Davina Obrien MD Unavailable Unavailable Encounter Details Date Type Department Care Team (Late st Contact Info) Description 10/02/2021 MyC Medical Advice [facility] [address] [place] [address] Amauri Collins MD [address] [place] [address] Social History Tobacco Use Types Packs/Day Years Used Date Smoking Tobacco: Every Day Cigarettes Smokeless Tobacco: Never Alcohol Use Standard Drinks/Week Comments Yes 0 (1 standard drink = 0.6 oz pur e alcohol) Comments No Sex and Gender Information Value Date Recorded Sex Assigned at Not on file Legal 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 Female 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 LETTUCE CUTTER Gender Identity Not on file Sexual Orientation [...] documented as of this encounter Care Teams Analog Design Engineer Relationship Specialty Start Date End Date No Ref-Primary, Physician PCP - General 09/22/21 10/25/21 Clinic - [facility] [address] [place], [place] [address] PCP - General Internal Medicine 10/26/21 Narda Young MD [address] [address] loss prevention leader 09/22/21 Amauri Collins MD [address] [place] [address] Assigned PCP 09/03/21 Davina Obrien MD [address] [place] [address] Physician loss prevention leader 07/10/24 documented as of this encounter
[2024-11-12 16:57] VITALS: BP 135/87; PULSE 102; RESP 18; TEMP 38.2; O2SAT 99; BMI 24.8
--- NOTE | 2024-11-12 17:06 | ED.ABDPAIN ---
HPI - Abdominal Pain General Time Seen by Provider: 17:11 Date Seen: 11/12/24 Chief Complaint: Abdominal Pain Stated Complaint: Stomach pain/throwing up Time Seen by Provider: 11/12/24 17:03 History of Present Illness HPI narrative: 39-year-old female who presents today with abdominal pain, fever, vomiting this started yesterday. Patient notes she felt a little off in the morning, took some ibuprofen, felt better and then yesterday afternoon ate a hot dog and had severe abdominal pain and cramping along with gagging and nausea. Today this abdominal pain is continued but has become more constant, she also has had watery stools. Subjective fever at home, diffuse body aches. Denies urinary symptoms, cough, nausea, vomiting. Related Data Previous Rx's ?Medication ?Instructions ?Recorded sumatriptan succinate 50 mg tablet 50 mg PO Q2H PRN migraine headache 07/26/24 #12 tabs omeprazole 20 mg capsule,delayed 40 mg (2 x 20 mg) PO DAILY #60 caps 09/11/24 release Allergies Allergy/AdvReac Type Severity Reaction Status Date / Time No Known Drug Allergies Allergy Verified 11/12/24 17:02 [facility] Medical History (Updated 11/12/24 @ 18:54 by Nithin Chung MD) History of pyelonephritis (04/08/23) ?Z87.448 - Personal history of other diseases of urinary system (ICD-10) Hemoperitoneum ?K66.1 - Hemoperitoneum (ICD-10) Ovarian hemorrhage ?N83.8 - Other noninflammatory disorders of ovary, fallopian tube and broad ligament (ICD-10) Surgical History (Updated 08/09/24 @ 14:09 by Arlyn Santillan MD) Status post laparoscopic hysterectomy (08/09/24) ?Z90.710 - Acquired absence of both cervix and uterus (ICD-10) History of right salpingo-oophorectomy (02/28/22) ?Z90.79 - Acquired absence of other genital organ(s) (ICD-10) ?Z90.721 - Acquired absence of ovaries, unilateral (ICD-10) H/O bilateral breast implants (2015) ?Z98.82 - Breast implant status (ICD-10) History of appendectomy (12/03/19) ?Z90.49 - Acquired absence of other specified parts of digestive tract (ICD-10) H/O wisdom tooth extraction ?K08.409 - Partial loss of teeth, unspecified cause, unspecified class (ICD-10) Social History (Updated 08/06/24 @ 13:45 by Madina Fuller PA-C) Narrative: Vapes daily Rare alcohol use What is your current living situation?: I presently have a place to live Problems where you live: no known problems Problems where you live details: none In the past 12 months, utilities in danger of being shut off: no In past 12 months, lack of transportation kept you from medical appts, meetings, work, or getting things needed for daily living: no In the past 12 mos, have been you worried that your food would run out before you had money to buy more?: never true In the past 12 mos, the food you bought just didn't last and you didn't have money to buy more?: never true Smoking Status: Never smoker Do you use any of these nicotine containing products: None How often do you have a drink containing alcohol: 2-3 times a week AUDIT-C Alcohol total score: 3 Non-prescribed substance use: denies use Caffeine: Yes (1can C4) service: No Exam Narrative: Exam Narrative: General: Well-developed and well-nourished, no acute distress Head: Atraumatic and normocephalic Eyes: Pupils are equal reactive, extraocular motions intact, conjunctiva clear ENT: External nose and ears are normal, posterior pharynx without erythema or exudate Neck: No midline cervical tenderness, full spontaneous range of motion the neck, trachea midline, no adenopathy Heart: Regular rate and rhythm no murmurs or thrills Lungs: Clear to auscultation bilaterally without wheezes or crackles Abdomen: Soft, diffuse abdominal tenderness, nondistended with active bowel sounds Musculoskeletal: No tenderness, deformity, or edema Neurologic: Awake, alert, and oriented x3, no gross focal neurologic deficits, cranial nerves intact as tested Psych: Mood and affect are appropriate Skin: No rashes Const: Vital Signs, click to edit/add: Vital Signs - 24 hr 11/12/24 16:57 11/12/24 19:01 11/12/24 19:26 Temperature 100.7 F H 98.2 F 98.2 F Pulse Rate 85 Pulse Rate [Right Pulse Oximeter] 102 H Respiratory Rate 18 18 Blood Pressure 107/64 Blood Pressure [Ri ght Upper Arm] 135/87 Pulse Oximetry 99 98 Oxygen Delivery Me thod Room Air 11/12/24 19:31 11/12/24 19:57 11/12/24 19:59 Temperature 98.2 F Pulse Rate 87 Pulse Rate [Right Pulse Oximeter] 102 H Respiratory Rate 18 18 Blood Pressure 119/60 Blood Pressure [Ri ght Upper Arm] 135/87 Pulse Oximetry 99 98 Oxygen Delivery Me thod Course Course ED Course: Patient seen examined, presents today with nausea, abdominal pain, fever, diarrhea. On exam here, she is febrile, no hypotension. Diffuse abdominal tenderness which is worse in the lower abdomen and right upper quadrant. Initial presentation with postprandial pain seem most consistent with acute cholecystitis, however patient has diarrhea and lower abdominal tenderness which would be more similar to enteritis, colitis, or diverticulitis. Labs ordered along with Zofran and Toradol, CT scan ordered for further evaluation. Reevaluation(s) Time of Reevaluation #1: 18:11 Reevaluation #1: CT of the abdomen pelvis Advil interpreted by me demonstrates colitis of the ascending and transverse colon. Left kidney also with mild hydronephrosis but no ureteral obstruction noted. On further interview, no recent travel but patient was camping last weekend. Stool cultures and C diff are ordered, anticipate treatment for giardiasis. Time of Reevaluation #2: 18:52 Reevaluation #2: Labs independently interpreted by me with normal CBC, basic panel with normal creatinine, normal hepatic panel, normal lipase. Urinalysis with 4+ ketones. IV fluids ordered. Time of Reevaluation #3: 19:18 Reevaluation #3: Patient recheck, encourage her to provide a stool sample. We reviewed lab tests, patient is requesting more pain medication and morphine IV is ordered. Plan to discharge with oxycodone, Zofran, Flagyl for possible giardiasis. Additional Reevaluation(s): 20:00- patient was unable to provide a stool sample while in the department, discharged in stable condition. Vital Signs Vital signs: Initial Vital Signs Temperature 100.7 F H 11/12/24 16:57 Temperature Source Temporal Artery Scan 11/12/24 16:57 Pulse Rate 102 H 11/12/24 16:57 Pulse Rhythm Regular 11/12/24 16:57 Pulse Strength 3+ Normal 11/12/24 16:57 Respiratory Rate 18 11/12/24 16:57 Blood Pressure 135/87 11/12/24 16:57 Blood Pressure Mean 103 11/12/24 16:57 Blood Pressure Position Sitting 11/12/24 16:57 Pulse Oximetry 99 11/12/24 16:57 Oxygen Delivery Method Room Air 11/12/24 16:57 Vital Signs Temperature 100.7 F H 11/12/24 16:57 Pulse Rate 102 H 11/12/24 16:57 Respiratory Rate 18 11/12/24 16:57 Blood Pressure 135/87 11/12/24 16:57 Pulse Oximetry 99 11/12/24 16:57 Oxygen Delivery Method Room Air 11/12/24 16:57 Temperature 98.2 F 11/12/24 19:59 Pulse Rate 102 H 11/12/24 19:59 Respiratory Rate 18 11/12/24 19:59 Blood Pressure 135/87 11/12/24 19:59 Pulse Oximetry 98 11/12/24 19:57 Oxygen Delivery Method Room Air 11/12/24 16:57 Medications Administered Medications: Discontinued Medications Generic Name Dose Route Start Last Admin Trade Name Freq PRN Reason Stop Dose Admin Sodium Chloride 1,000 mls @ 1,000 mls/hr 11/12/24 18:30 11/12/24 19:26 0.9 % Sodium Chloride 1000 Ml IV 11/12/24 19:29 Infused .Q1H HONEY Infusion Ketorolac Tromethamine 15 mg 11/12/24 17:34 11/12/24 18:17 Ketorolac 15 Mg/Ml Inj IVP 11/12/24 17:35 15 mg ONCE ONE Administration Morphine Sulfate 4 mg 11/12/24 19:18 11/12/24 19:28 Morphine 4 Mg/Ml Inj IVP 11/12/24 19:19 4 mg ONCE ONE Administration Ondansetron HCl 4 mg 11/12/24 17:34 11/12/24 18:17 Ondansetron 2 Mg/Ml Inj IVP 11/12/24 17:35 4 mg ONCE ONE Administration MDM - Abdominal Pain Lab Data Labs: Lab Results 11/12/24 11/12/24 Range/Units 17:55 18:10 WBC 7.34 (4.50-11.00) K/uL RBC 4.47 (4.00-5.20) m/uL Hgb 12.4 (12.0-16.0) gm/dL Hct 38.9 (33.0-51.0) % MCV 87 (80-100) fL MCH 28 (26-34) pg MCHC 32 (32-36) gm/dL RDW Coeff of [place] 13.0 (11.5-15.5) % Plt Count 213 (140-440) K/uL Neut % (Auto) 79.6 H (42.0-72.0) % Lymph % (Auto) 12.7 L (20-44) % [place] % (Auto) 7.2 (0.0-11.0) % Eos % (Auto) 0.1 (0.0-7.0) % Baso % (Auto) 0.1 (0.0-3.0) % Neut # (Auto) 5.80 (1.7-7.0) K/uL Lymph # (Auto) 0.90 (0.90-2.90) K/uL [place] # (Auto) 0.50 (0.00-0.90) K/UL Eos # (Auto) 0.01 (0.00-0.50) K/uL Baso # (Auto) 0.01 (0.00-0.30) K/uL Abs Immat Gran (auto) 0.02 (0.00-0.30) K/uL Imm/Tot Granulo (auto) 0.3 % Sodium 135 (135-149) mmol/L Potassium 3.3 L (3.6-5.1) mmol/L Chloride 102 (96-114) mmol/L Carbon Dioxide 26 (20-32) mmol/L Anion Gap 7 (7-15) mEq/L BUN 9 (5-24) mg/dL Creatinine 0.7 (0.5-1.5) mg/dL Estimated Creat Clear 91.02 Estimated GFR 114 ml/min Glucose 104 (60-115) mg/dL Calcium 8.8 (8.4-10.6) mg/dL Total Bilirubin 0.4 (0.1-1.5) mg/dL Direct Bilirubin 0.3 (0.0-0.5) mg/dL AST 30 (12-35) U/L ALT 21 (4-35) U/L Alkaline Phosphatase 65 (40-150) U/L Total Protein 7.4 (6.0-8.3) g/dL Albumin 4.1 (3.3-5.0) g/dL Lipase 99 (23-300) U/L Urine Color Yellow (Yellow) Urine Appearance Clear (Clear) Urine pH 6.0 (5.0-8.5) Ur Specific [place] 1.020 (1.000-1.030) Urine Protein 1+ A (Negative) Urine Glucose (UA) Negative (Negative) Urine Ketones 4+ A (Negative) Urine Blood Trace-intact A (Negative) Urine Nitrite Negative (Negative) Urine Bilirubin 1+ A (Negative) Urine Urobilinogen 0.2 (0.2-1.0) Ur Leukocyte Esterase Negative (Negative) Urine RBC 5-10 A (0-2) Urine WBC 2-5 (0-5) Urine WBC Clumps None (None) Ur Squamous Epith Cells Few (None-Few) Urine Bacteria None (None) Discharge Plan Discharge Clinical Impression: Colitis presumed to be due to infection Patient Disposition: Home, Self-Care Instructions: Colitis (ED) Additional Instructions: Take Imodium if your having more than 6 stools a day Take Bentyl for abdominal pain and cramping, you may take Tylenol or ibuprofen as well Activity Level: No Restrictions Diet Detail: Graham diet for 24 hours Prescriptions: No Action omeprazole 20 mg capsule,delayed release(DR/EC) 40 mg PO DAILY Qty: 60 0RF sumatriptan succinate 50 mg tablet 50 mg PO Q2H PRN (Reason: migraine headache) Qty: 12 12RF Follow Up/Referrals: Remberto Anderson MD [Primary Care Provider, Internal Medicine] Stand Alone Forms: [place] [employer] Info Instructions
--- NOTE | 2024-11-12 17:33 | CRLHL7_ITS ---
For Patients: As a result of the Century Cures Act, medical imaging exams and procedure reports are released immediately into your electronic medical record. You may view this report before your referring provider. If you have questions, please contact your health care provider. INDICATION: Fever and right upper quadrant and suprapubic pain. TECHNIQUE: CT abdomen and pelvis acquired with 100 cc of Omnipaque 350 IV contrast. COMPARISON: None. FINDINGS: Lower chest: Unremarkable. Liver: Unremarkable. Normal in size and attenuation. No suspicious masses. Gallbladder and bile ducts: Unremarkable. No stones or inflammation. No biliary dilatation. Pancreas: Unremarkable. No mass or inflammation. Spleen: Unremarkable. Normal in size. No masses. Adrenal glands: Unremarkable. No nodules. Kidneys: Multiple left parapelvic cysts. Slightly delayed left nephrogram, though unclear etiology as there is no hydroureteronephrosis, or obstructing stone or lesion visualized. Small left parapelvic cysts. GI tract: Mild mural thickening of the ascending colon and proximal transverse colon. Prior appendectomy. No bowel obstruction. Vasculature: Abdominal aorta is normal in caliber. Mesenteric arteries are patent. Lymph nodes: No lymphadenopathy. Peritoneum/Abdominal Wall: Small volume free fluid in the pelvis. No free air. Unremarkable abdominal wall. Pelvis: Status post hysterectomy. Bones: Unremarkable for age. IMPRESSION: 1. Mild mural thickening of the ascending colon and proximal transverse colon, compatible with colitis, likely on the basis of an infectious or inflammatory process. 2. Slightly delayed left nephrogram, though unclear etiology as there is no hydroureteronephrosis, or obstructing stone or lesion visualized. Please note that all CT scans at this facility use dose modulation, iterative reconstruction, and/or weight-based dosing when appropriate to reduce radiation dose to as low as reasonably achievable. Dictated by Luis Alberto Trent MD @ 11/12/2024 7:01:50 PM (Electronically Signed)
[2024-11-12 18:11] LABS: Basophils Absolute Auto 0.01 K/uL (0.00-0.30); Basophils Percent Auto 0.1 % (0.0-3.0); Eosinophils Absolute Auto 0.01 K/uL (0.00-0.50); Eosinophils Percent Auto 0.1 % (0.0-7.0); Hematocrit 38.9 % (33.0-51.0); Hemoglobin* 12.4 gm/dL (12.0-16.0); Immature Granulocytes Abs Auto 0.02 K/uL (0.00-0.30); Immature Granulocytes Pct Auto 0.3 %; Lymphocytes Percent Auto 12.7 % (20-44); Mean Corpuscular HGB Conc 32 gm/dL (32-36); Mean Corpuscular Hemoglobin 28 pg (26-34); Mean Corpuscular Volume 87 fL (80-100); Monocytes Percent Auto 7.2 % (0.0-11.0); Neutrophils Percent Auto 79.6 % (42.0-72.0); Platelet Count* 213 K/uL (140-440); Red Blood Count 4.47 m/uL (4.00-5.20); White Blood Count* 7.34 K/uL (4.50-11.00)
[2024-11-12 18:15] LABS: Slide Review Reflex No
[2024-11-12] MEDS: KETOROLAC 15 MG/ML inj IVP (18:17)
[2024-11-12] MEDS: ONDANSETRON 2 MG/ML inj 4 MG IVP (18:17)
[2024-11-12 18:22] LABS: Appearance Urine Clear (Clear); Bilirubin Urine 1+ (Negative); Blood Urine Trace-intact (Negative); Color Urine Yellow (Yellow); Glucose Urine Negative (Negative); Ketones Urine 4+ (Negative); Leukocyte Esterase Urine Negative (Negative); Nitrite Urine Negative (Negative); Protein Urine 1+ (Negative); Urobilinogen Urine 0.2 (0.2-1.0)
[2024-11-12 18:23] LABS: Albumin* 4.1 g/dL (3.3-5.0)
[2024-11-12 18:24] LABS: Chloride* 102 mmol/L (96-114); Potassium* 3.3 mmol/L (3.6-5.1); Sodium* 135 mmol/L (135-149)
[2024-11-12 18:26] LABS: Alanine Aminotransferase* 21 U/L (4-35); Anion Gap 7 mEq/L (7-15); Aspartate Amino Transferase* 30 U/L (12-35); Blood Urea Nitrogen* 9 mg/dL (5-24); Carbon Dioxide* 26 mmol/L (20-32); Creatinine* 0.7 mg/dL (0.5-1.5); Est. Creatinine Clearance* 91.02; Estimated Glomerular Filt Rate 114 ml/min
[2024-11-12 18:27] LABS: Alkaline Phosphatase* 65 U/L (40-150); Bilirubin Direct* 0.3 mg/dL (0.0-0.5); Bilirubin Total* 0.4 mg/dL (0.1-1.5); Calcium* 8.8 mg/dL (8.4-10.6); Glucose* 104 mg/dL (60-115); Lipase* 99 U/L (23-300); Total Protein* 7.4 g/dL (6.0-8.3)
[2024-11-12] MEDS: 0.9 % SODIUM CHLORIDE 1000 ml 1,000 ML IV (18:27)
[2024-11-12 18:54] LABS: Squamous Epithelial Cell Urine Few (None-Few)
[2024-11-12 19:01] VITALS: BP 107/64; PULSE 85; RESP 18; TEMP 36.8; O2SAT 98
[2024-11-12 19:26] VITALS: TEMP 36.8
[2024-11-12] MEDS: MORPHINE 4 MG/ML INJ IVP (19:28)
[2024-11-12 19:31] VITALS: BP 119/60; PULSE 87; RESP 18; O2SAT 99
[2024-11-12 19:57] VITALS: O2SAT 98
[2024-11-12 19:59] VITALS: BP 135/87; PULSE 102; RESP 18; TEMP 36.8
[2024-11-13 10:10] LABS: C.Difficile Negative (Negative); CDIFFEPI 027 PRESUMPTIVE NEGATIVE (Negative)
== END 2024-11-12 20:02 | disposition home or self-care (01) ==
PROVIDERS: Emergency Provider Family Medicine; PCP Internal Medicine
DX: K52.9 Noninfective gastroenteritis and colitis, unspecified (principal); R50.9 Fever, unspecified; R11.10 Vomiting, unspecified
CPT/HCPCS: 36415; 74177; 80048; 80076; 81001; 83690; 85025; 87045; 87046; 87427; 87493; 94761; 96374; 96375; 99284; 99285; J1885; J2270; J2405; J7030; Q9967

== ENCOUNTER 2024-11-15 10:08 | Outpatient (CLI) | payer BC, SELFPAY | END 2024-11-15 10:09 | disposition home or self-care (01) | LOC: NFLDREF 10:12 | PROVIDERS: Visit Provider Registered Nurse | DX: K52.9 Noninfective gastroenteritis and colitis, unspecified (principal); R10.84 Generalized abdominal pain | CPT/HCPCS: 80053; 87086 ==